=== PATIENT | male | born 1945 | race Caucasian/White ===

== ENCOUNTER 2016-07-06 08:31 | Outpatient (CLI) | payer MEDICARE, OTHER | END 2016-07-06 08:32 | disposition home or self-care (01) | DX: R73.01 Impaired fasting glucose (principal); I10 Essential (primary) hypertension; E78.9 Disorder of lipoprotein metabolism, unspecified; Z12.5 Encounter for screening for malignant neoplasm of prostate | CPT/HCPCS: 36415; 80053; 80061; 84443; G0103 ==

== ENCOUNTER 2017-02-04 15:27 | Outpatient (CLI) | payer MEDICARE, OTHER | END 2017-02-04 15:28 | disposition critical access hospital (66) | LOC: EMS 15:27 | PROVIDERS: ATTEND Surgery | DX: R07.9 Chest pain, unspecified (principal); R42 Dizziness and giddiness | CPT/HCPCS: A0425; A0427 ==

== ENCOUNTER 2017-02-04 15:46 | Inpatient (IN) | payer MEDICARE, OTHER ==
[2017-02-04] MEDS ORDERED: diltiaZEM INJ 125 MG in DEXTROSE 5% 100 ML IV STA (15:55)
--- NOTE | 2017-02-04 15:56 | ED Physician Documentation ---
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 Chest pain decreased at that time. Review of Systems Ten Systems: 10 systems reviewed and negative Constitutional: denies: Fever, Chills Ears: denies: Ear pain Nose: denies: Rhinorrhea / runny nose, Congestion Throat: denies: Sore throat Cardiac: reports: Chest pain / pressure Respiratory: denies: Cough, Wheezing GI: denies: Nausea, Vomiting, Diarrhea Skin: denies: Rash Musculoskeletal: denies: Neck pain, Back pain Neurologic: denies: Focal weakness, Numbness, Headache PD PAST MEDICAL HISTORY - Past Medical History Cardiovascular: Hypertension, High cholesterol, Arrhythmia, Other Respiratory: None Psych: Anxiety - Past Surgical History Past Surgical History: Yes - Present Medications Home Medications: Ambulatory Orders Medication Instructions Recorded Confirmed Alprazolam [Xanax] 1 mg PO DAILY 11/30/14 02/04/17 Atorvastatin Calcium [Lipitor] 20 mg PO DAILY 11/30/14 02/04/17 Hydrochlorothiazide 25 mg PO DAILY 11/30/14 02/04/17 Lisinopril 20 mg PO DAILY 11/30/14 02/04/17 Aspirin [Aspir-Low] 81 mg PO DAILY 10/31/15 02/04/17 - Allergies Allergies/Adverse Reactions: Allergies Allergy/AdvReac Type Severity Reaction Status Date / Time Penicillins Allergy passed out Verified 10/31/15 19:14 - Social History Does the pt smoke?: No Smoking Status: Never smoker Does the pt drink ETOH?: No Does the pt have substance abuse?: No - Immunizations Immunizations are current?: Yes - POLST Patient has POLST: No PD ED PE NORMAL - Vitals Vital signs reviewed: Yes - General General: Alert and oriented X 3, No acute distress, Well developed/nourished - HEENT HEENT: PERRL, Moist mucous membranes - Neck Neck: Supple, no meningeal sign - Cardiac Cardiac: No murmur, Other (irregulary irregular, tachycardic) - Respiratory Respiratory: No respiratory distress, Clear bilaterally - Abdomen Abdomen: Soft, Non tender, Non distended - Back Back: No CVA TTP, No spinal TTP - Derm Derm: Warm and dry, No rash - Extremities Extremities: No edema, No calf tenderness / cord - Neuro Neuro: Alert and oriented X 3, 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52 L Hgb 14.0 Hct 40.8 L MCV 90.3 MCH 31.0 MCHC 34.4 RDW 13.7 Plt Count 265 MPV 8.6 Neut # 4.2 Lymph # 2.2 [place] # 1.0 Eos # 0.2 Baso # 0.1 Absolute Nucleated RBC 0.00 Nucleated RBCs 0.1 Sodium 136 Potassium 3.9 Chloride 104 Carbon Dioxide 23 Anion Gap 9.0 BUN 24 H Creatinine 1.1 Estimated GFR (MDRD) 66 L Glucose 119 H Calcium 8.9 Total Bilirubin 0.5 AST 31 ALT 33 Alkaline Phosphatase 77 Troponin I < 0.04 Total Protein 7.0 Albumin 3.8 Globulin 3.2 Albumin/Globulin Ratio 1.2 Lipase 26 - Rads (name of study) cxr Radiology: Prelim report reviewed, EMP read contemporaneously, See rad report ( normal cxr) PD MEDICAL DECISION MAKING - ED course Complexity details: reviewed old records, reviewed results, re-evaluated patient , considered differential, d/w patient, d/w family, d/w nutrition consultant ED course: Patient is a 71-year-old gentleman who presents to the emergency department with new onset atrial fibrillation with rapid ventricular response. Initial rate was in the 180 bpm range, decreased to 130s after 25 mg of metoprolol IV with EMS. Started on a diltiazem drip when he arrived in the emergency department. Chest pain resolved with control of the atrial fibrillation. Discussed the case with Dr. Rivas, hospitalist who accepts. Patient was maintained on a diltiazem drip. This document was made in part using voice recognition software. While efforts are made to proofread this document, sound alike and grammatical errors may occur. Departure - Departure Disposition: 66 [facility] DC/Xfer Clinical Impression: Atrial fibrillation with RVR, New onset a-fib Chest pain Qualifiers: Chest pain type: unspecified Qualified Code(s): R07.9 - Chest pain, unspecified Condition: Stable Discharge Date/Time: 02/04/17 17:26
[2017-02-04 16:16] LABS: BASOPHILS # (AUTO) 0.1 10^3/uL (0.0-0.1); BASOPHILS % (AUTO) 1.1 %; EOSINOPHILS # (AUTO) 0.2 10^3/uL (0.0-0.7); HCT - HEMATOCRIT 40.8 % (42.0-52.0); LYMPHOCYTES # (AUTO) 2.2 10^3/uL (1.5-3.5); LYMPHOCYTES % (AUTO) 28.4 %; MEAN CORPUSCULAR HGB CONC 34.4 g/dL (32.0-36.0); MEAN CORPUSCULAR VOLUME 90.3 fL (80.0-94.0); MEAN PLATELET VOLUME 8.6 fL (7.4-11.4); MONOCYTES % (AUTO) 13.3 %; NEUTROPHILS # (AUTO) 4.2 10^3/uL (1.5-6.6); NEUTROPHILS % (AUTO) 55.2 %; NUCLEATED RED BLOOD CELLS AUTO 0.1 /100WBC; RED BLOOD COUNT 4.52 10^6/uL (4.70-6.10); RED CELL DISTRIBUTION WIDTH 13.7 % (12.0-15.0); UNCORRECTED WHITE BLOOD COUNT 7.7 x10^3/uL; WHITE BLOOD COUNT 7.7 x10^3/uL (4.8-10.8)
--- NOTE | 2017-02-04 16:19 | XRAY Preliminary Report ---
Exam: XR Chest 1 View IMPRESSION: Normal single view chest. [facility] SITE ID: [id number]
--- NOTE | 2017-02-04 16:22 | XRAY Report ---
EXAM: CHEST RADIOGRAPHY EXAM DATE: 02/04/2017 04:14 PM. CLINICAL HISTORY: Chest pain. COMPARISON: 2 views 11/30/2014. TECHNIQUE: 1 view. FINDINGS: Lungs/Pleura: No focal opacities evident. No pleural effusion. No pneumothorax. Mediastinum: Within exam limitations, cardiomediastinal contour is normal. Other: None. IMPRESSION: Normal single view chest. [facility] Referring Provider Line: [phone] SITE ID: [id number]
[2017-02-04 16:23] LABS: ALBUMIN/GLOBULIN RATIO 1.2 (1.0-2.2); BILIRUBIN,TOTAL 0.5 mg/dL (0.2-1.0); CALCIUM 8.9 mg/dL (8.5-10.3); CREATININE 1.1 mg/dL (0.6-1.2); POTASSIUM 3.9 mmol/L (3.5-5.0)
[2017-02-04] MEDS ORDERED: MORPHINE 2 MG/ML SYRINGE IVP PRN ×2 (16:46→17:29)
[2017-02-04] MEDS ORDERED: ONDANSETRON 4 MG/2 ML VIAL IVP PRN ×2 (16:46→17:29)
[2017-02-04] MEDS ORDERED: ACETAMINOPHEN 325 MG TABLET PO PRN ×2 (16:46→17:29)
[2017-02-04] MEDS ORDERED: ALBUTEROL NEB 2.5 MG/3 ML INH PRN ×2 (16:46→17:29)
[2017-02-04] MEDS ORDERED: SODIUM CHLORIDE FLUSH 0.9% 10 ML SYRINGE IVP PRN ×3 (16:46→18:38)
[2017-02-04] MEDS ORDERED: SODIUM CHLORIDE 0.9% 1,000 ML IV SCH (17:00)
[2017-02-04] MEDS: SODIUM CHLORIDE 0.9% 1,000 ML IV SCH (17:52)
[2017-02-04] MEDS: PANTOPRAZOLE 40 MG TABLET PO SCH (19:35)
[2017-02-04 20:47] LABS: BILIRUBIN,URINE NEGATIVE (NEGATIVE)
[2017-02-04 20:51] LABS: UA CHARGE (STRIP ONLY) YES
[2017-02-04] MEDS: ENOXAPARIN 40 MG/0.4 ML SYRINGE SUBQ SCH (21:00)
[2017-02-04] MEDS: SODIUM CHLORIDE FLUSH 0.9% 10 ML SYRINGE IVP SCH ×2 (21:00→21:01)
[2017-02-04] MEDS ORDERED: SODIUM CHLORIDE FLUSH 0.9% 10 ML SYRINGE IVP SCH (22:00)
[2017-02-05 01:22] LABS: CALCIUM 8.6 mg/dL (8.5-10.3); POTASSIUM 3.8 mmol/L (3.5-5.0)
[2017-02-05 01:27] LABS: CHOL/HDL RATIO 3.9 (<5.0); CHOLESTEROL 173 mg/dL; HDL CHOLESTEROL 44 mg/dL; LDL/HDL RATIO 2.6 (<3.6); TRIGLYCERIDES 75 mg/dL; VLDL CHOLESTEROL 15 mg/dL
[2017-02-05] MEDS: SODIUM CHLORIDE 0.9% 1,000 ML IV SCH (03:27)
[2017-02-05] MEDS: SODIUM CHLORIDE FLUSH 0.9% 10 ML SYRINGE IVP SCH ×4 (06:05→12:16)
[2017-02-05] MEDS: PANTOPRAZOLE 40 MG TABLET PO SCH (06:05)
[2017-02-05] MEDS: ENOXAPARIN 40 MG/0.4 ML SYRINGE SUBQ SCH (08:28)
[2017-02-05] MEDS ORDERED: LISINOPRIL 20 MG TABLET PO SCH ×2 (09:00)
[2017-02-05] MEDS ORDERED: ALPRAZolam 0.25 MG TABLET PO SCH (09:00)
[2017-02-05] MEDS ORDERED: ASPIRIN EC 81 MG TABLET PO SCH (09:00)
[2017-02-05] MEDS ORDERED: ATORVASTATIN 10 MG TABLET PO SCH (09:00)
[2017-02-05] MEDS ORDERED: POLYETHYLENE GLYCOL 3350 17 GM PACKET PO SCH (09:00)
[2017-02-05] MEDS ORDERED: METOPROLOL TARTRATE 25 MG TABLET PO SCH (09:00)
--- NOTE | 2017-02-05 10:25 | HISTORY & PHYSICAL EXAMINATION ---
DATE OF ADMISSION: 02/04/2017 PRIMARY CARE PHYSICIAN: Dr. Mendoza CHIEF COMPLAINT: Chest pressure. IDENTIFYING INFORMATION: The patient is the primary source of history and appears cogent, consistent, and thorough. Additional information is obtained in the handoff from Dr. Meehan, the emergency depar tment physician, as well as personal review of medical records and data collected during this visit. All were used in addition to the examination in the evaluation of this patient and preparation of thi s document. HISTORY OF PRESENT ILLNESS: The patient says he was playing golf and got on the 4th hole and he start ed feeling very what he called acid in his stomach, felt like his heart was not beating properly and he decided not to continue to golf, put his golf clubs away, drive home, took 3 aspirin. He did not f eel any better, so he came to the hospital via EMS. Was noted by EMS to have very fast heart rate, 15 0, and in atrial fibrillation. He was given 25 mg of diltiazem which slowed his heart rate into the 1 20s. REVIEW OF SYSTEMS: He has no fever or chills. He did feel dizzy, weak, faint during this period. He h as never had these symptoms before. He was seen a long time ago for some kind of palpitations or irre gular rhythm and had an angiogram at that time no abnormalities and he has also been seen more recent ly for an irregularity on his EKG. The patient's rest of his complete review of systems is negative a s queried. PAST MEDICAL HISTORY: The patient has hypertension, high cholesterol, arrhythmia noted above, also burciaga s anxiety syndrome. PAST SURGICAL HISTORY: The patient has had surgery, which was not delineated. ALLERGIES: PENICILLIN. MEDICATIONS 1. Xanax 1 mg daily. 2. Lipitor 20 mg daily. 3. Hydrochlorothiazide 25 mg daily. 4. Lisinopril 20 mg daily. 5. Aspirin 81 mg daily. 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 The patient tried smoking when he was in the [place], but it d id not agree with him so never smoked. Only occasional use of alcohol. FAMILY HISTORY: The patient's family history is reviewed and no relevant family history. PHYSICAL EXAMINATION CONSTITUTIONAL: Male, appears anxious and states same, but not in distress, says his chest pain is al most gone. VITAL SIGNS: 37.0, 124, 16, 148/93, O2 saturation 94%. EYES: EOM within normal limits, PERRL, nonicteric. MOUTH AND THROAT: Normal. NECK: Supple. Nontender. No bruits, no JVD. CHEST WALL: Nontender. Symmetric. HEART: Regular rate and rhythm. No murmurs appreciated, tachycardia noted. LUNGS: Clear, good air movement bilaterally. ABDOMEN: Thick abdominal wall, soft, nontender, normal bowel sounds. No hepatosplenomegaly noted. RECTAL/GENITAL: Exam not done. EXTREMITIES: No edema. VASCULAR: Reveals palpable 1+ pulses posterior tibial bilaterally. The patient has no cyanosis. NEURO : Cognition intact. Cranial nerves intact. Motor intact. Gait was not tested. LABORATORY DATA: White count 7.7, 14 and 40 hemoglobin and hematocrit, platelets are 265. Sodium 136, potassium 3.9, chloride 104, CO2 of 23, 24 is the BUN, creatinine at 1.1, glucose is 119, calcium 8. 9. Normal liver enzymes. Troponin less than 0.04. Albumin is 3.8. In the emergency department, the demian hamilton's Cardizem drip was increased from 10 to 15 to 20 with improvement each time and then regressio n of his heart rate with RVR. SUMMARY: This is a 71-year-old male who was out playing golf, had chest pressure and fast heart rate, the new onset atrial fibrillation with RVR and is being admitted to the hospital to continue IV infu ana and Additional medications as needed for controlling the RVR with further diagnostic studies. DIAGNOSES 1. Atrial fibrillation with rapid ventricular response, new onset. 2. Chest pain, rule out myocardial infarction. 3. Hypertension. 4. Hypercholesterolemia. DISCUSSION/DECISION MAKING 1. Atrial fibrillation with rapid ventricular response treated with diltiazem and beta jeremy added. 2. Chest pain. Will continue aspirin. Metoprolol to be added and serial troponins. 3. Hypertension will be monitored with home medications as needed. 4. High cholesterol. The patient's will have a panel done and statin adjusted as needed. 5. Anxiety. The patient's Xanax will be used or substituted with Ativan. HOSPITAL ISSUES 1. Code status: FULL CODE. 2. VTE prophylaxis, which will be Lovenox. 3. Diet, which will be cardiac. 4. Activity will be in chair for now. 5. Tubes and lines, which will be peripheral IV. 6. Hospital status: Given the rapid atrial fibrillation with rapid ventricular response, the patient' s new onset and need for workup, patient will need 2 nights in the hospital for diagnostics and thera peutic interventions before discharge and therefore inpatient status. 7. Length of stay, 2 nights unless there is deterioration of his condition or complications. 8. Disposition which will be home. JOB #: [id number] EXT JOB #:[id number]
[2017-02-05 14:06] VITALS: BP 135/73
--- NOTE | 2017-02-05 14:38 | DISCHARGE SUMMARY ---
DATE OF ADMISSION: 02/04/2017 DATE OF DISCHARGE: 02/05/2017 TRANSFER SUMMARY PRIMARY CARE PHYSICIAN: Gregorio Mendoza MD INITIAL DIAGNOSES 1. Atrial fibrillation with rapid ventricular response, new onset. 2. Chest pain, rule out myocardial infarction. 3. Hypertension. 4. Hypercholesterolemia. TRANSFER DIAGNOSES 1. Atrial fibrillation with rapid ventricular response, converted to normal sinus rhythm during hospital stay. 2. Chest pain with suspect [id number] myocardial infarction versus cardiac strain secondary to atrial fibrillation with rapid ventricular response. 3. Hypertension. 4. Hypercholesterolemia. SPECIAL PROCEDURES: None. CONSULTATIONS: By telephone, Dr. Duenas. The result of the consultation was a recommendation that the patient be transferred to [facility]. HOSPITAL COURSE AND MANAGEMENT: The initial presentation, emergency department evaluation and hospitalist plan are well described in the History and Physical. See copy of same. SUMMARY: This is a 71-year-old male who was out playing golf, had chest pressure and a fast heart rate. The new onset atrial fibrillation with RVR present dictated, because of the need for IV infusion of Cardizem, for the patient to be admitted to the hospital to continue this infusion and additional medications as needed for controlling the RVR with further diagnostic studies, i.e., echocardiogram and serial troponins. The patient was continued on the infusion, which was increased to a maximum of 20, and then, the patient was subsequently controlled with this infusion. It was reduced down to 10 mcg and converted to normal sinus, then to 5 mcg and then discontinued. The patient was started on beta-jeremy because of the increase in his troponin from less than 0.04 to 0.27 to 1.0 to 1.34 and before discharge 1.04, indicating a peak at 1.3. The patient had no further chest pain and was queried as to his preference for Cardiology and point of service. The patient indicated [facility], and therefore, Dr. Duenas was consulted. When it was understood that a timely echocardiogram and stress test were not available due to the 3 day holiday, the recommendation was for the patient to be transferred after talking to the hospitalist, Dr. Pollard. Agreement was reached with gracious acceptance. PHYSICAL EXAMINATION VITAL SIGNS: At the time of discharge, 36.7, 62, 130/66, 21, 97 room air saturation. GENERAL: The patient is a well-nourished, well-developed male in no acute distress. EYES: EOMs within normal limits, PERRL, nonicteric. MOUTH AND THROAT: Moist mucous membranes. No pathology noted. NECK: No lymphadenopathy. No JVD. No thyromegaly. CHEST WALL: Nontender. Symmetric. HEART: Normal sinus rhythm. No murmurs, rubs, clicks noted. LUNGS: Clear, good air movement. No increased work of breathing. ABDOMEN: Thick abdominal wall, soft, nontender. RECTAL/GENITAL: No exam done. EXTREMITIES: Without edema. Normal distal pulses to posterior tibial. NEUROLOGIC: Cognitive intact. Cranial nerves intact. SKIN: No suspicious lesions or dermatitis. LABORATORY DATA: Troponins have been previously <0.04, 0.27, o.47. The patient has a white count that was normal. Sodium 136, potassium 3.8, chloride 103, CO2 of 24, BUN 21, creatinine 1.0. The patient's calcium is 8.6. The patient was transitioned to full dose Lovenox. Aspirin was given. Beta blockers noted above. MEDICATIONS At time of discharge, the patient's medications were: 1. Aspirin. 2. Lipitor. 3. Lovenox. 4. Zestril. 5. Metoprolol. 6. P.r.n. morphine. 7. Ondansetron. 8. Protonix. The patient was discharged in satisfactory condition. JOB #: [id number] EXT JOB #:[id number]
== END 2017-02-05 14:25 | disposition short-term general hospital (02) | DRG 282 ==
LOC: EDUNIT# → ED 15:46 → ICU 16:46 → ED 17:26
PROVIDERS: ADMIT Internal Medicine; ATTEND Internal Medicine
DX: I21.4 Non-ST elevation (NSTEMI) myocardial infarction (principal); I48.91 Unspecified atrial fibrillation; I10 Essential (primary) hypertension; E78.00 Pure hypercholesterolemia, unspecified; Z79.82 Long term (current) use of aspirin; Z79.899 Other long term (current) drug therapy; F41.9 Anxiety disorder, unspecified
CPT/HCPCS: 36415; 71010; 80048; 80053; 80061; 81001; 81003; 83690; 84484; 85025; 87150; 93005; 96365; 99284; 99285

== ENCOUNTER 2017-02-05 14:31 | Outpatient (CLI) | payer MEDICARE, OTHER | END 2017-02-05 14:32 | disposition short-term general hospital (02) | LOC: EMS 14:31 | PROVIDERS: ATTEND Surgery | DX: R07.9 Chest pain, unspecified (principal) | CPT/HCPCS: A0425; A0426 ==

== ENCOUNTER 2017-03-01 16:56 | Outpatient (CLI) | payer MEDICARE, OTHER | END 2017-03-01 16:57 | disposition critical access hospital (66) | LOC: EMS 16:56 | PROVIDERS: ATTEND Surgery | DX: R00.0 Tachycardia, unspecified (principal); R07.9 Chest pain, unspecified | CPT/HCPCS: A0425; A0427 ==

== ENCOUNTER 2017-03-01 17:15 | Emergency (ER) | payer MEDICARE, OTHER ==
[2017-03-01 17:37] LABS: BASOPHILS # (AUTO) 0.1 10^3/uL (0.0-0.1); BASOPHILS % (AUTO) 1.4 %; EOSINOPHILS # (AUTO) 0.3 10^3/uL (0.0-0.7); EOSINOPHILS % (AUTO) 3.4 %; HCT - HEMATOCRIT 41.8 % (42.0-52.0); HGB - HEMOGLOBIN 14.5 g/dL (14.0-18.0); LYMPHOCYTES # (AUTO) 3.3 10^3/uL (1.5-3.5); LYMPHOCYTES % (AUTO) 39.6 %; MEAN CORPUSCULAR HEMOGLOBIN 31.2 pg (27.0-31.0); MEAN CORPUSCULAR HGB CONC 34.6 g/dL (32.0-36.0); MEAN CORPUSCULAR VOLUME 90.1 fL (80.0-94.0); MEAN PLATELET VOLUME 9.1 fL (7.4-11.4); MONOCYTES # (AUTO) 0.9 10^3/uL (0.0-1.0); MONOCYTES % (AUTO) 10.4 %; NEUTROPHILS # (AUTO) 3.8 10^3/uL (1.5-6.6); NEUTROPHILS % (AUTO) 45.2 %; NUCLEATED RED BLOOD CELLS AUTO 0.1 /100WBC; RED BLOOD COUNT 4.64 10^6/uL (4.70-6.10); RED CELL DISTRIBUTION WIDTH 13.7 % (12.0-15.0); UNCORRECTED WHITE BLOOD COUNT 8.4 x10^3/uL; WHITE BLOOD COUNT 8.4 x10^3/uL (4.8-10.8)
--- NOTE | 2017-03-01 17:44 | ED Physician Documentation ---
PD HPI CHEST PAIN - Stated complaint Stated Complaint: AFIB - Chief complaint Chief Complaint: Cardiac - History obtained from History obtained from: Patient, EMS - History of Present Illness Timing - onset: Other (This is a 71-year-old gentleman who developed A. fib 3 weeks ago, he ruled in here and was sent to [facility] where per his description he had a negative echocardiogram and nuclear stress test. He was placed on Eliquis and metoprolol. Today at around 4:00 developed burping and feeling dizzy with chest pressure. He went to his doctor's office and they found him to be back in A. fib with RVR and he was referred here for further evaluation and treatment. On arrival he feels better and has converted to sinus rhythm.) Review of Systems Ten Systems: 10 systems reviewed and negative Constitutional: denies: Fever, Chills Cardiac: denies: Pedal edema, Calf pain Respiratory: denies: Dyspnea, Hemoptysis PD PAST MEDICAL HISTORY - Past Medical History Past Medical History: Yes Cardiovascular: Hypertension, High cholesterol, Arrhythmia, Other Respiratory: None Neuro: None GI: None : None HEENT: None Psych: Anxiety Musculoskeletal: None Derm: None - Past Surgical History Past Surgical History: Yes HEENT: Other - Present Medications Home Medications: Ambulatory Orders Medication Instructions Recorded Confirmed Alprazolam [Xanax] 1 mg PO DAILY 11/30/14 02/04/17 Atorvastatin Calcium [Lipitor] 40 mg PO DAILY 11/30/14 02/05/17 Hydrochlorothiazide 50 mg PO DAILY 11/30/14 02/05/17 Lisinopril 20 mg PO DAILY 11/30/14 02/04/17 Aspirin [Aspir-Low] 81 mg PO DAILY 10/31/15 02/04/17 - Allergies Allergies/Adverse Reactions: Allergies Allergy/AdvReac Type Severity Reaction Status Date / Time Penicillins Allergy passed out Verified 10/31/15 19:14 - Social History Does the pt smoke?: No Smoking Status: Never smoker Does the pt drink ETOH?: No Does the pt have substance abuse?: No - Immunizations Immunizations are current?: Yes - POLST Patient has POLST: No PD ED PE NORMAL - Vitals Vital signs reviewed: Yes - General General: Alert and oriented X 3, No acute distress - HEENT HEENT: PERRL, EOMI - Neck Neck: Supple, no meningeal sign, No bony TTP - Cardiac Cardiac: RRR, No murmur - Respiratory Respiratory: No respiratory distress, Clear bilaterally - Abdomen Abdomen: Soft, Non tender - Back Back: No CVA TTP, No spinal TTP - Derm Derm: Normal color, Warm and dry - Extremities Extremities: No edema, No calf tenderness / cord - Neuro Neuro: Alert and oriented X 3, Normal speech - Psych Psych: Normal mood, Normal affect Results - Vitals Vitals: Vital Signs - 24 hr 03/01/17 03/01/17 03/01/17 17:18 17:20 18:35 Heart Rate 135 H 56 L Respiratory 18 13 Rate Blood Pressure 158/114 H 94/65 O2 Saturation 100 95 Oxygen O2 Source Room air - EKG (time done) 1743 Rate: Rate (enter#) (71) Rhythm: NSR [place]: Normal Intervals: Normal [place] QRS: Normal Ischemia: Non specific changes (Inverted T waves in the mid and lateral precordium which are unchanged from prior EKGs done 3 weeks ago.). No: ST elevation c/w ischemia Computer interpretation: Agree with computer - Labs Labs: Laboratory Tests 03/01/17 03/01/17 03/01/17 17:29 17:29 17:29 WBC 8.4 RBC 4.64 L Hgb 14.5 Hct 41.8 L MCV 90.1 MCH 31.2 H MCHC 34.6 RDW 13.7 Plt Count 251 MPV 9.1 Neut # 3.8 Lymph # 3.3 [place] # 0.9 Eos # 0.3 Baso # 0.1 Absolute Nucleated RBC 0.01 Nucleated RBC % 0.1 Sodium 138 Potassium 3.6 Chloride 104 Carbon Dioxide 23 Anion Gap 11.0 BUN 26 H Creatinine 1.0 Estimated GFR (MDRD) 74 L Glucose 117 H Calcium 9.5 Total Bilirubin 0.6 AST 35 ALT 39 Alkaline Phosphatase 69 Troponin I < 0.04 Total Protein 7.0 Albumin 3.8 Globulin 3.2 Albumin/Globulin Ratio 1.2 Lipase 26 03/01/17 19:28 WBC RBC Hgb Hct MCV MCH MCHC RDW Plt Count MPV Neut # Lymph # [place] # Eos # Baso # Absolute Nucleated RBC Nucleated RBC % Sodium Potassium Chloride Carbon Dioxide Anion Gap BUN Creatinine Estimated GFR (MDRD) Glucose Calcium Total Bilirubin AST ALT Alkaline Phosphatase Troponin I 0.04 Total Protein Albumin Globulin Albumin/Globulin Ratio Lipase PD MEDICAL DECISION MAKING - ED course ED course: 71-year-old gentleman with an episode of A. fib that resolved prior to arrival. On his last admission he ruled in and was transferred to [facility] where per his description further workup was negative. Because of that he was kept in the department for 2 enzymes which were both undetectable and he continued to be symptom-free. 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 Departure - Departure Disposition: Home, Self Care Clinical Impression: Atrial fibrillation with RVR Condition: Good Record reviewed to determine appropriate education?: Yes Instructions: Atrial Fibrillation Dc Comments: Call your director of hotel operations tomorrow to arrange sooner follow-up than May. Return if you have recurrent symptoms.
[2017-03-01 17:46] LABS: ALBUMIN/GLOBULIN RATIO 1.2 (1.0-2.2); BILIRUBIN,TOTAL 0.6 mg/dL (0.2-1.0); CALCIUM 9.5 mg/dL (8.5-10.3); POTASSIUM 3.6 mmol/L (3.5-5.0)
--- NOTE | 2017-03-01 18:23 | XRAY Preliminary Report ---
Exam: XR Chest 2 View PA/LAT IMPRESSION: No acute pulmonary process. [facility] SITE ID: [id number]
--- NOTE | 2017-03-01 18:58 | XRAY Report ---
EXAM: CHEST RADIOGRAPHY EXAM DATE: 03/01/2017 05:55 p.m. CLINICAL HISTORY: Chest pain. COMPARISON: 02/04/2017. TECHNIQUE: 2 views. FINDINGS: Lungs/Pleura: No focal opacities evident. No pleural effusion. No pneumothorax. Normal volumes. Mediastinum: Heart and mediastinal contours are unremarkable. 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 IMPRESSION: No acute pulmonary process. [facility] Referring Provider Line: [phone] SITE ID: [id number]
[2017-03-01 20:13] VITALS: BP 107/68
== END 2017-03-01 20:28 | disposition home or self-care (01) ==
LOC: EDUNIT# → ED 17:15
DX: I48.91 Unspecified atrial fibrillation (principal); Z79.01 Long term (current) use of anticoagulants; I10 Essential (primary) hypertension; E78.00 Pure hypercholesterolemia, unspecified; I49.9 Cardiac arrhythmia, unspecified; Z79.82 Long term (current) use of aspirin
CPT/HCPCS: 36415; 71020; 80053; 83690; 84484; 85025; 93005; 99284

== ENCOUNTER 2017-03-07 14:17 | Outpatient (CLI) | payer MEDICARE, OTHER | END 2017-03-07 14:18 | disposition home or self-care (01) | LOC: SC 14:17 | PROVIDERS: ATTEND Internal Medicine Pulmonary Disease | DX: R06.83 Snoring (principal); I48.0 Paroxysmal atrial fibrillation | CPT/HCPCS: 99203; G0463; 99212 ==

== ENCOUNTER 2017-05-02 20:18 | Outpatient (CLI) | payer MEDICARE, OTHER | END 2017-05-02 20:19 | disposition home or self-care (01) | LOC: SC 20:18 | PROVIDERS: ATTEND Internal Medicine Pulmonary Disease | DX: G47.61 Periodic limb movement disorder (principal) | CPT/HCPCS: 95810 ==

== ENCOUNTER 2017-05-12 08:00 | Outpatient (CLI) | payer MEDICARE, OTHER ==
[2017-05-12 13:05] LABS: BASOPHILS # (AUTO) 0.1 10^3/uL (0.0-0.1); BASOPHILS % (AUTO) 0.9 %; EOSINOPHILS # (AUTO) 0.3 10^3/uL (0.0-0.7); EOSINOPHILS % (AUTO) 3.2 %; HCT - HEMATOCRIT 40.8 % (42.0-52.0); LYMPHOCYTES # (AUTO) 3.2 10^3/uL (1.5-3.5); MEAN CORPUSCULAR HEMOGLOBIN 31.1 pg (27.0-31.0); MEAN CORPUSCULAR HGB CONC 34.3 g/dL (32.0-36.0); MEAN CORPUSCULAR VOLUME 90.7 fL (80.0-94.0); MEAN PLATELET VOLUME 9.9 fL (7.4-11.4); MONOCYTES # (AUTO) 0.9 10^3/uL (0.0-1.0); MONOCYTES % (AUTO) 10.9 %; NEUTROPHILS # (AUTO) 4.1 10^3/uL (1.5-6.6); NUCLEATED RED BLOOD CELLS AUTO 0.1 /100WBC; RED CELL DISTRIBUTION WIDTH 13.8 % (12.0-15.0); UNCORRECTED WHITE BLOOD COUNT 8.6 x10^3/uL; WHITE BLOOD COUNT 8.6 x10^3/uL (4.8-10.8)
[2017-05-12 13:28] LABS: ALBUMIN/GLOBULIN RATIO 1.2 (1.0-2.2); BILIRUBIN,TOTAL 0.5 mg/dL (0.2-1.0); CALCIUM 9.2 mg/dL (8.5-10.3); CREATININE 1.1 mg/dL (0.6-1.2); POTASSIUM 3.8 mmol/L (3.5-5.0); TOTAL PROTEIN 7.2 g/dL (6.7-8.2)
== END 2017-05-12 08:01 | disposition home or self-care (01) ==
LOC: LAB.WCP 08:00
PROVIDERS: ATTEND Family Medicine
DX: I48.91 Unspecified atrial fibrillation (principal); E78.9 Disorder of lipoprotein metabolism, unspecified; I10 Essential (primary) hypertension
CPT/HCPCS: 36415; 80053; 85025

== ENCOUNTER 2017-05-18 11:10 | Outpatient (CLI) | payer MEDICARE, OTHER | END 2017-05-18 11:11 | disposition home or self-care (01) | LOC: SC 11:10 | PROVIDERS: ATTEND Nurse Practitioner Family | DX: G47.61 Periodic limb movement disorder (principal); R06.83 Snoring | CPT/HCPCS: 99214; G0463; 99212 ==

== ENCOUNTER 2017-11-08 08:00 | Outpatient (CLI) | payer MEDICARE, OTHER ==
[2017-11-08 12:40] LABS: BASOPHILS # (AUTO) 0.1 10^3/uL (0.0-0.1); BASOPHILS % (AUTO) 0.9 %; EOSINOPHILS # (AUTO) 0.1 10^3/uL (0.0-0.7); EOSINOPHILS % (AUTO) 1.7 %; HGB - HEMOGLOBIN 14.4 g/dL (14.0-18.0); LYMPHOCYTES # (AUTO) 2.7 10^3/uL (1.5-3.5); LYMPHOCYTES % (AUTO) 33.9 %; MEAN CORPUSCULAR HGB CONC 34.4 g/dL (32.0-36.0); MEAN CORPUSCULAR VOLUME 90.2 fL (80.0-94.0); MEAN PLATELET VOLUME 9.6 fL (7.4-11.4); MONOCYTES # (AUTO) 0.9 10^3/uL (0.0-1.0); MONOCYTES % (AUTO) 10.9 %; NEUTROPHILS # (AUTO) 4.2 10^3/uL (1.5-6.6); NEUTROPHILS % (AUTO) 52.6 %; PLT - PLATELET COUNT 267 10^3/uL (130-450); RED BLOOD COUNT 4.66 10^6/uL (4.70-6.10); RED CELL DISTRIBUTION WIDTH 13.8 % (12.0-15.0)
[2017-11-08 13:00] LABS: ALBUMIN 3.9 g/dL (3.2-5.5); ALBUMIN/GLOBULIN RATIO 1.1 (1.0-2.2); ALKALINE PHOSPHATASE 70 IU/L (42-121); ALT ALANINE AMINOTRANSFERASE 38 IU/L (10-60); AST ASPARTATE AMINOTRANSFERASE 35 IU/L (10-42); BILIRUBIN,TOTAL 0.9 mg/dL (0.2-1.0); BUN - BLOOD UREA NITROGEN 31 mg/dL (6-20); CALCIUM 9.1 mg/dL (8.5-10.3); CARBON DIOXIDE - CO2 24 mmol/L (21-32); CHLORIDE 100 mmol/L (101-111); CHOL/HDL RATIO 4.3 (<5.0); CHOLESTEROL 191 mg/dL; CREATININE 1.2 mg/dL (0.6-1.2); GFR - MDRD 60 (>89); GLUCOSE 120 mg/dL (70-100); HDL CHOLESTEROL 44 mg/dL; LDL CHOLESTEROL,CALCULATED 125 mg/dL; LDL/HDL RATIO 2.8 (<3.6); SODIUM 134 mmol/L (135-145); TOTAL PROTEIN 7.4 g/dL (6.7-8.2); VLDL CHOLESTEROL 22 mg/dL
== END 2017-11-08 08:01 | disposition home or self-care (01) ==
LOC: LAB.WCP 08:00
PROVIDERS: ATTEND Family Medicine
DX: I48.91 Unspecified atrial fibrillation (principal); D12.6 Benign neoplasm of colon, unspecified; E78.9 Disorder of lipoprotein metabolism, unspecified; R00.2 Palpitations
CPT/HCPCS: 36415; 80053; 80061; 83721; 85025

== ENCOUNTER 2017-11-10 12:13 | Emergency (ER) | payer MEDICARE, OTHER ==
[2017-11-10] MEDS ORDERED: MAG HYDROX/AL HYDROX/SIMETH 30 ML UDC PO STA (12:54)
[2017-11-10] MEDS ORDERED: SODIUM CHLORIDE 0.9% 1,000 ML IV ONE (12:54)
--- NOTE | 2017-11-10 12:57 | ED Physician Documentation ---
History of Present Illness - Stated complaint Stated Complaint: AB PX - Chief complaint Chief Complaint: Abd Pain - History obtained from History obtained from: Patient, Family - History of Present Illness Timing: Last night Pain level max: 1 Pain level now: 0 Improved by: nothing Worsened by: nothing - Additonal information Additional information: Patient is a 72-year-old male who presents to the since department with epigastric pain last night and this morning. States felt more nauseous than anything and like a "gurgling". He also states that he felt a little bit lightheaded last night and today. Has not had a great appetite over the past 6 days since his dog unexpectedly . He states he is struggling with this and feels anxious. States currently is feeling better, though still tearful. States had a full cardiac workup in 02/2017 and everything was " normal " including nuclear stress test. Review of Systems Ten Systems: 10 systems reviewed and negative Constitutional: denies: Fever, Chills Ears: denies: Ear pain Nose: denies: Rhinorrhea / runny nose, Congestion Throat: denies: Sore throat Cardiac: denies: Chest pain / pressure Respiratory: denies: Cough GI: reports: Nausea. denies: Vomiting, Diarrhea, Hematemesis, Bloody / black stool : denies: Dysuria, Frequency, Hesitancy Skin: denies: Rash Musculoskeletal: denies: Neck pain, Back pain Neurologic: denies: Focal weakness, Numbness, Headache PD PAST MEDICAL HISTORY - Past Medical History Past Medical History: Yes Cardiovascular: Hypertension, High cholesterol, Atrial fibrillation, Arrhythmia , Other Respiratory: None GI: None : None HEENT: None Psych: Anxiety Musculoskeletal: None Derm: None - Past Surgical History Past Surgical History: Yes HEENT: Other - Present Medications Home Medications: Ambulatory Orders Medication Instructions Recorded Confirmed Alprazolam [Xanax] 1 mg PO DAILY 11/30/14 02/04/17 Atorvastatin Calcium [Lipitor] 40 mg PO DAILY 11/30/14 02/05/17 Hydrochlorothiazide 50 mg PO DAILY 11/30/14 02/05/17 Lisinopril 20 mg PO DAILY 11/30/14 02/04/17 Apixaban [Eliquis] 2.5 mg PO 11/10/17 Metoprolol Succinate [Toprol Xl] 25 mg PO 11/10/17 - Allergies Allergies/Adverse Reactions: Allergies Allergy/AdvReac Type Severity Reaction Status Date / Time Penicillins Allergy passed out Verified 11/10/17 12:27 - Social History Does the pt smoke?: No Smoking Status: Never smoker Does the pt drink ETOH?: No Does the pt have substance abuse?: No - Immunizations Immunizations are current?: Yes - POLST Patient has POLST: No PD ED PE NORMAL - Vitals Vital signs reviewed: Yes - General General: Alert and oriented X 3, No acute distress - HEENT HEENT: Moist mucous membranes - Neck Neck: Supple, no meningeal sign - Cardiac Cardiac: RRR, No murmur, Strong equal pulses - Respiratory Respiratory: No respiratory distress, Clear bilaterally - Abdomen Abdomen: Soft, Non tender, Non distended - Derm Derm: Warm and dry - Extremities Extremities: No edema, No calf tenderness / cord - Neuro Neuro: Alert and oriented X 3 - Psych Psych: Other (tearful at times) Results - Vitals Vitals: Vital Signs - 24 hr 11/10/17 11/10/17 11/10/17 12:22 14:16 14:38 Temperature 36.9 C Heart Rate 57 L 141 H 153 H Respiratory 16 18 Rate Blood Pressure 147/85 H 148/110 H 155/99 H O2 Saturation 96 94 11/10/17 11/10/17 11/10/17 14:43 14:48 14:53 Temperature Heart Rate 77 65 59 L Respiratory Rate Blood Pressure 124/67 134/70 H 128/71 O2 Saturation 11/10/17 11/10/17 11/10/17 15:27 15:53 15:58 Temperature 36.9 C 36.9 C Heart Rate 60 60 60 Respiratory 18 18 18 Rate Blood Pressure 130/77 112/68 112/68 O2 Saturation 97 100 100 Oxygen O2 Source Room air - EKG (time done) 1316 Rate: Rate (enter#) (136) Rhythm: Atrial fibrillation (w RVR) [place]: Normal Intervals: Normal [place] QRS: Normal Ischemia: Non specific changes - Labs Labs: Laboratory Tests 11/10/17 11/10/17 11/10/17 13:31 13:31 13:31 WBC 9.0 RBC 4.78 Hgb 15.1 Hct 43.8 MCV 91.6 MCH 31.6 H MCHC 34.5 RDW 13.8 Plt Count 277 MPV 8.9 Neut # (Auto) 6.5 Lymph # (Auto) 1.6 [place] # (Auto) 0.8 Eos # (Auto) 0.1 Baso # (Auto) 0.1 Absolute Nucleated RBC 0.00 Nucleated RBC % 0.0 Sodium 131 L Potassium 3.8 Chloride 99 L Carbon Dioxide 22 Anion Gap 10.0 BUN 26 H Creatinine 1.2 Estimated GFR (MDRD) 60 L Glucose 122 H Calcium 9.5 Total Bilirubin 0.7 AST 39 ALT 41 Alkaline Phosphatase 75 Troponin I < 0.04 Total Protein 7.9 Albumin 4.0 Globulin 3.9 Albumin/Globulin Ratio 1.0 Lipase 35 - Rads (name of study) cxr Radiology: Prelim report reviewed, EMP read contemporaneously, See rad report ( normal) PD MEDICAL DECISION MAKING - ED course Complexity details: reviewed results, re-evaluated patient, considered differential (No ST elevation NV, no aortic dissection, no PE, no tension pneumothorax, no aortic aneurysm), d/w patient, d/w family ED course: Patient is a 72-year-old male who presents to the emergency department with generalized not feeling well since last night. He was found to be in atrial fibrillation with rapid ventricular response and converted back to normal sinus rhythm with Cardizem here. He did feel better after this. Also found to be mildly hyponatremic and felt better after IV fluids. Has had decreased oral intake since his dog . Recommend that he increase his oral intake and follow-up closely with his doctor. Patient and family counseled regarding signs and symptoms for which I believe and urgent re-evaluation would be necessary. Patient with good understanding of and agreement to plan and is comfortable going home at this time This document was made in part using voice recognition software. While efforts are made to proofread this document, sound alike and grammatical errors may occur. - Sepsis Event Vital Signs: Vital Signs - 24 hr 11/10/17 11/10/17 11/10/17 12:22 14:16 14:38 Temperature 36.9 C Heart Rate 57 L 141 H 153 H Respiratory 16 18 Rate Blood Pressure 147/85 H 148/110 H 155/99 H O2 Saturation 96 94 11/10/17 11/10/17 11/10/17 14:43 14:48 14:53 Temperature Heart Rate 77 65 59 L Respiratory Rate Blood Pressure 124/67 134/70 H 128/71 O2 Saturation 06/08/18 06/08/18 06/08/18 15:27 15:53 15:58 Temperature 36.9 C 36.9 C Heart Rate 60 60 60 Respiratory 18 18 18 Rate Blood Pressure 130/77 112/68 112/68 O2 Saturation 97 100 100 Oxygen O2 Source Room air Departure - Departure Disposition: 01 Home, Self Care Clinical Impression: Atrial fibrillation with RVR, Hyponatremia Condition: Good Instructions: ED Afib Follow-Up: Gregorio Mendoza MD [Primary Care Provider] - Within 1 week Comments: Return if you worsen. Is important to follow-up with your doctor in approximately 1 week to have your sodium levels rechecked. Discharge Date/Time: 11/10/17 15:58
--- NOTE | 2017-11-10 13:24 | XRAY Report ---
EXAM: CHEST RADIOGRAPHY EXAM DATE: 11/10/2017 01:15 PM. CLINICAL HISTORY: Chest pain. COMPARISON: 03/01/2017. TECHNIQUE: 1 view. FINDINGS: Lungs/Pleura: No focal opacities evident. No pleural effusion. The left lateral costophrenic sulcus i s excluded from the [id number]. No pneumothorax. Mediastinum: Within exam limitations, the cardiomediastinal contour is normal. Other: No acute osseous abnormality. IMPRESSION: No acute cardiopulmonary abnormality. [facility] Referring Provider Line: [phone] SITE ID: [id number]
--- NOTE | 2017-11-10 13:24 | XRAY Preliminary Report ---
Exam: XR CHEST 1 VIEW X-RAY IMPRESSION: No acute cardiopulmonary abnormality. [facility] SITE ID: [id number]
[2017-11-10 13:35] LABS: BASOPHILS # (AUTO) 0.1 10^3/uL (0.0-0.1); BASOPHILS % (AUTO) 0.9 %; EOSINOPHILS # (AUTO) 0.1 10^3/uL (0.0-0.7); EOSINOPHILS % (AUTO) 0.7 %; HGB - HEMOGLOBIN 15.1 g/dL (14.0-18.0); LYMPHOCYTES # (AUTO) 1.6 10^3/uL (1.5-3.5); LYMPHOCYTES % (AUTO) 17.3 %; MEAN CORPUSCULAR HEMOGLOBIN 31.6 pg (27.0-31.0); MEAN CORPUSCULAR HGB CONC 34.5 g/dL (32.0-36.0); MEAN CORPUSCULAR VOLUME 91.6 fL (80.0-94.0); MEAN PLATELET VOLUME 8.9 fL (7.4-11.4); MONOCYTES # (AUTO) 0.8 10^3/uL (0.0-1.0); MONOCYTES % (AUTO) 8.9 %; NEUTROPHILS # (AUTO) 6.5 10^3/uL (1.5-6.6); NEUTROPHILS % (AUTO) 72.2 %; PLT - PLATELET COUNT 277 10^3/uL (130-450); RED BLOOD COUNT 4.78 10^6/uL (4.70-6.10); RED CELL DISTRIBUTION WIDTH 13.8 % (12.0-15.0)
[2017-11-10 14:00] LABS: BILIRUBIN,TOTAL 0.7 mg/dL (0.2-1.0); CALCIUM 9.5 mg/dL (8.5-10.3); CREATININE 1.2 mg/dL (0.6-1.2); TOTAL PROTEIN 7.9 g/dL (6.7-8.2)
[2017-11-10] MEDS ORDERED: diltiaZEM INJ 5 MG/ML VIAL IVP STA (14:17)
[2017-11-10 15:54] VITALS: BP 112/68
== END 2017-11-10 15:58 | disposition home or self-care (01) ==
LOC: ED 12:13
DX: I48.91 Unspecified atrial fibrillation (principal); Z79.01 Long term (current) use of anticoagulants; E87.1 Hypo-osmolality and hyponatremia; I10 Essential (primary) hypertension; E78.00 Pure hypercholesterolemia, unspecified; I49.9 Cardiac arrhythmia, unspecified
CPT/HCPCS: 36415; 71045; 80053; 83690; 84484; 85025; 93005; 96374; 99284; A9270

== ENCOUNTER 2017-11-11 19:05 | Emergency (ER) | payer MEDICARE, OTHER ==
[2017-11-11 19:58] LABS: BASOPHILS # (AUTO) 0.1 10^3/uL (0.0-0.1); BASOPHILS % (AUTO) 1.2 %; EOSINOPHILS # (AUTO) 0.1 10^3/uL (0.0-0.7); EOSINOPHILS % (AUTO) 1.2 %; HGB - HEMOGLOBIN 14.4 g/dL (14.0-18.0); LYMPHOCYTES # (AUTO) 2.3 10^3/uL (1.5-3.5); LYMPHOCYTES % (AUTO) 31.6 %; MEAN CORPUSCULAR HEMOGLOBIN 31.7 pg (27.0-31.0); MEAN CORPUSCULAR HGB CONC 34.4 g/dL (32.0-36.0); MEAN CORPUSCULAR VOLUME 92.1 fL (80.0-94.0); MONOCYTES # (AUTO) 0.8 10^3/uL (0.0-1.0); MONOCYTES % (AUTO) 11.2 %; NEUTROPHILS # (AUTO) 3.9 10^3/uL (1.5-6.6); NEUTROPHILS % (AUTO) 54.8 %; PLT - PLATELET COUNT 271 10^3/uL (130-450); RED BLOOD COUNT 4.55 10^6/uL (4.70-6.10); RED CELL DISTRIBUTION WIDTH 13.8 % (12.0-15.0); WHITE BLOOD COUNT 7.2 x10^3/uL (4.8-10.8)
[2017-11-11 20:13] LABS: ALBUMIN 3.8 g/dL (3.2-5.5); ALBUMIN/GLOBULIN RATIO 1.1 (1.0-2.2); BILIRUBIN,TOTAL 0.5 mg/dL (0.2-1.0); CALCIUM 9.6 mg/dL (8.5-10.3); MAGNESIUM 2.1 mg/dL (1.7-2.8); TOTAL PROTEIN 7.4 g/dL (6.7-8.2)
[2017-11-11] MEDS ORDERED: LIDOCAINE VISCOUS 2% 15 ML UDC MM STA (20:20)
[2017-11-11] MEDS ORDERED: MAG HYDROX/AL HYDROX/SIMETH 30 ML UDC PO STA (20:20)
[2017-11-11] MEDS ORDERED: FAMOTIDINE 20 MG TABLET PO STA (20:20)
--- NOTE | 2017-11-11 20:27 | XRAY Report ---
EXAM: CHEST RADIOGRAPHY EXAM DATE: 11/11/2017 08:01 PM. CLINICAL HISTORY: Fever, hx of lung failure. COMPARISON: Chest 11/10/2017 and 03/01/2017. TECHNIQUE: 1 view. FINDINGS: Lungs/Pleura: No focal opacities evident. No pleural effusion. No pneumothorax. Mediastinum: Within exam limitations, the cardiomediastinal contour is normal. Other: The patient is mildly rotated to the right. IMPRESSION: Normal single view chest. [facility] Referring Provider Line: [phone] SITE ID: [id number]
--- NOTE | 2017-11-11 20:27 | XRAY Preliminary Report ---
Exam: XR CHEST 1 VIEW X-RAY IMPRESSION: Normal single view chest. [facility] SITE ID: [id number]
--- NOTE | 2017-11-11 20:37 | ED Physician Documentation ---
PD HPI CHEST PAIN - Stated complaint Stated Complaint: CHEST PX - Chief complaint Chief Complaint: Cardiac - History obtained from History obtained from: Patient - History of Present Illness Timing - onset: Yesterday Timing - details: Gradual onset, Now resolved Quality: Indigestion Location: Substernal Associated symptoms: No: Shortness of air, Diaphoresis, Feeling faint / dizzy Similar symptoms before: Work up / diagnostics Recently seen: Emergency Dept - Additional information Additional information: Patient is a 72 year old male who is presenting to the emergency department for indigestion. patient was seen in the emergency department yesterday and at that time had an episode of a-fib that resolved with diltiazam. Patient states that this afternoon he had an episode of indigestion and nausea. Upon initial evaluation in the emergency department patient stated that he was feeling better and that his symptoms had resolved. Review of Systems Ten Systems: 10 systems reviewed and negative Cardiac: denies: Chest pain / pressure Respiratory: denies: Dyspnea, Cough GI: reports: Nausea PD PAST MEDICAL HISTORY - Past Medical History Cardiovascular: Hypertension, High cholesterol, Atrial fibrillation, Arrhythmia , Other Respiratory: None GI: None : None HEENT: None Psych: Anxiety Musculoskeletal: None Derm: None - Past Surgical History Past Surgical History: Yes HEENT: Other - Present Medications Home Medications: Ambulatory Orders Medication Instructions Recorded Confirmed Alprazolam [Xanax] 1 mg PO DAILY 11/30/14 02/04/17 Atorvastatin Calcium [Lipitor] 40 mg PO DAILY 11/30/14 02/05/17 Hydrochlorothiazide 50 mg PO DAILY 11/30/14 02/05/17 Lisinopril 20 mg PO DAILY 11/30/14 02/04/17 Apixaban [Eliquis] 2.5 mg PO 11/10/17 Metoprolol Succinate [Toprol Xl] 25 mg PO 11/10/17 Ondansetron Odt [Zofran] 4 mg TL Q6H PRN #14 tablet 11/11/17 - Allergies Allergies/Adverse Reactions: Allergies Allergy/AdvReac Type Severity Reaction Status Date / Time Penicillins Allergy passed out Verified 11/11/17 19:14 - Social History Does the pt smoke?: No Smoking Status: Never smoker Does the pt drink ETOH?: No Does the pt have substance abuse?: No - Immunizations Immunizations are current?: Yes - POLST Patient has POLST: No PD ED PE NORMAL - Vitals Vital signs reviewed: Yes - General General: Alert and oriented X 3, No acute distress - HEENT HEENT: Atraumatic - Cardiac Cardiac: RRR, No murmur - Respiratory Respiratory: No respiratory distress, Clear bilaterally - Abdomen Abdomen: Soft, Non tender, Non distended - Derm Derm: Normal color, Warm and dry, No rash - Extremities Extremities: No deformity - Neuro Neuro: Alert and oriented X 3, No motor deficit Eye Opening: Spontaneous - Psych Psych: Normal mood Results - Vitals Vitals: Vital Signs - 24 hr 11/11/17 11/11/17 19:07 21:03 Temperature 36.6 C Heart Rate 80 55 L Respiratory 18 15 Rate Blood Pressure 165/76 H 125/68 O2 Saturation 97 97 Oxygen O2 Source Room air - EKG (time done) 1914 Rate: Rate (enter#) (76) Rhythm: NSR Ischemia: T wave inversion Compare to prior EKG: Unchanged from prior EKG - Labs Labs: Laboratory Tests 11/11/17 11/11/17 11/11/17 19:52 19:52 19:52 WBC 7.2 RBC 4.55 L Hgb 14.4 Hct 42.0 MCV 92.1 MCH 31.7 H MCHC 34.4 RDW 13.8 Plt Count 271 MPV 9.0 Neut # (Auto) 3.9 Lymph # (Auto) 2.3 [place] # (Auto) 0.8 Eos # (Auto) 0.1 Baso # (Auto) 0.1 Absolute Nucleated RBC 0.00 Nucleated RBC % 0.0 Sodium 137 Potassium 4.0 Chloride 103 Carbon Dioxide 25 Anion Gap 9.0 BUN 23 H Creatinine 1.0 Estimated GFR (MDRD) 74 L Glucose 113 H Calcium 9.6 Phosphorus 3.0 Magnesium 2.1 Total Bilirubin 0.5 AST 35 ALT 37 Alkaline Phosphatase 66 Troponin I 0.07 B-Natriuretic Peptide Total Protein 7.4 Albumin 3.8 Globulin 3.6 Albumin/Globulin Ratio 1.1 Lipase 32 11/11/17 11/11/17 19:52 21:22 WBC RBC Hgb Hct MCV MCH MCHC RDW Plt Count MPV Neut # (Auto) Lymph # (Auto) [place] # (Auto) Eos # (Auto) Baso # (Auto) Absolute Nucleated RBC Nucleated RBC % Sodium Potassium Chloride Carbon Dioxide Anion Gap BUN Creatinine Estimated GFR (MDRD) Glucose Calcium Phosphorus Magnesium Total Bilirubin AST ALT Alkaline Phosphatase Troponin I 0.07 B-Natriuretic Peptide 208 H Total Protein Albumin Globulin Albumin/Globulin Ratio Lipase - Rads (name of study) chest x-ray Radiology: Final report received (no acute disease process) PD MEDICAL DECISION MAKING - ED course Complexity details: reviewed old records, reviewed results, re-evaluated patient , considered differential, d/w patient, d/w family ED course: patient was seen and examined at bedside. Patient was in no acute distress. ekg was performed and although there were t wave inversions in the lateral leads it was unchanged from the last 2 years. Patient was placed on a monitor and was nsr. iv access was gained and labs were drawn. patient was treated with pepcid, maalox and viscous lidocaine. Patient's diagnostics were within normal limits. Repeat troponin remained negative. Patient continued to deny any chest pain. patient required no further inpatient work up and was stable for discharge with outpatient follow up. - Sepsis Event Vital Signs: Vital Signs - 24 hr 11/11/17 11/11/17 19:07 21:03 Temperature 36.6 C Heart Rate 80 55 L Respiratory 18 15 Rate Blood Pressure 165/76 H 125/68 O2 Saturation 97 97 Oxygen O2 Source Room air Departure - Departure Disposition: 01 Home, Self Care Clinical Impression: Atypical chest pain Condition: Good Instructions: ED Chest Pain Atypical Unkn Cause Follow-Up: Gregorio Mendoza MD [Primary Care Provider] - Within 3 Days Prescriptions: Ondansetron Odt [Zofran] 4 mg TL Q6H PRN #14 tablet PRN Reason: Nausea / Vomiting Comments: Your diagnostics today were within normal limits. there was no significant abnormalities. That being said it is only a snapshot in time. You should follow up with your doctor on monday and you should schedule a stress test and echocardiogram. You can try pepcid, maalox or zofran for indigestion as needed. You may return to the emergency department at any time for new, worsening or uncontrollable symptoms.
[2017-11-11 22:14] VITALS: BP 122/72
== END 2017-11-11 22:13 | disposition home or self-care (01) ==
LOC: ED 19:05
DX: R07.89 Other chest pain (principal); I10 Essential (primary) hypertension; I48.91 Unspecified atrial fibrillation; E78.00 Pure hypercholesterolemia, unspecified; I49.9 Cardiac arrhythmia, unspecified; Z79.01 Long term (current) use of anticoagulants
CPT/HCPCS: 36415; 71045; 80053; 83690; 83735; 83880; 84100; 84484; 85025; 93005; 99283; A9270

== ENCOUNTER 2017-11-23 08:00 | Outpatient (CLI) | payer MEDICARE, OTHER ==
[2017-11-23 19:26] LABS: CALCIUM 9.2 mg/dL (8.5-10.3)
== END 2017-11-23 08:01 | disposition home or self-care (01) ==
LOC: LAB.WCP 08:00
PROVIDERS: ATTEND Internal Medicine Cardiovascular Disease
DX: I48.0 Paroxysmal atrial fibrillation (principal)
CPT/HCPCS: 36415; 80048

== ENCOUNTER 2017-12-20 09:25 | Emergency (ER) | payer MEDICARE, OTHER ==
[2017-12-20] MEDS ORDERED: SODIUM CHLORIDE 0.9% 1,000 ML IV ONE (09:30)
[2017-12-20] MEDS ORDERED: FLECAINIDE 50 MG TABLET PO STA (09:41)
--- NOTE | 2017-12-20 09:52 | ED Physician Documentation ---
History of Present Illness - Stated complaint Stated Complaint: RAPID HR - Chief complaint Chief Complaint: Cardiac - Additonal information Additional information: hx from pt 72 male known hx int a fib since last fall cardio Dr Yeager at [facility] on eliquis and BB as well as lisinopril and HCTZ normally in NSR occ a fib seen most recently in November and out pt echo and ST suggested and are scheduled for January pt has been in good health walking 1.5 miles every day without sx taking meds as directed no changes no excessive caffeine, decongestants etc no recent illness fever coug no recent travel or leg swelling awoke at 730 with fast palp and palp discomfort to chest - no severe pain no SOA Review of Systems Constitutional: denies: Fever, Chills Cardiac: reports: Palpitations. denies: Chest pain / pressure Respiratory: denies: Dyspnea, Cough GI: denies: Abdominal Pain, Nausea, Vomiting Musculoskeletal: denies: Extremity swelling Immunocompromised: denies: Immunocompromised, Chemotherapy PD PAST MEDICAL HISTORY - Past Medical History Cardiovascular: Hypertension, High cholesterol, Atrial fibrillation, Arrhythmia , Other Respiratory: None GI: None : None HEENT: None Psych: Anxiety Musculoskeletal: None Derm: None - Past Surgical History Past Surgical History: Yes HEENT: Other - Present Medications Home Medications: Ambulatory Orders Medication Instructions Recorded Confirmed Alprazolam [Xanax] 1 mg PO DAILY 11/30/14 02/04/17 Atorvastatin Calcium [Lipitor] 40 mg PO DAILY 11/30/14 02/05/17 Hydrochlorothiazide 50 mg PO DAILY 11/30/14 02/05/17 Lisinopril 20 mg PO DAILY 11/30/14 02/04/17 Apixaban [Eliquis] 2.5 mg PO 11/10/17 Metoprolol Succinate [Toprol Xl] 25 mg PO 11/10/17 Ondansetron Odt [Zofran] 4 mg TL Q6H PRN #14 tablet 11/11/17 Flecainide [Tambocar] 300 mg PO ONCE PRN #6 tablet 12/20/17 - Allergies Allergies/Adverse Reactions: Allergies Allergy/AdvReac Type Severity Reaction Status Date / Time Penicillins Allergy passed out Verified 11/11/17 19:14 - Social History Does the pt smoke?: No Smoking Status: Never smoker Does the pt drink ETOH?: No Does the pt have substance abuse?: No - Immunizations Immunizations are current?: Yes - POLST Patient has POLST: No PD ED PE NORMAL - Vitals Vital signs reviewed: Yes - Neck Neck: Supple, no meningeal sign - Cardiac Cardiac: No: RRR (rapid and irreg) - Respiratory Respiratory: No respiratory distress, Clear bilaterally - Abdomen Abdomen: Soft, Non tender - Derm Derm: Normal color - Extremities Extremities: No edema, No calf tenderness / cord - Neuro Neuro: Alert and oriented X 3 Results - Vitals Vitals: Vital Signs - 24 hr 12/20/17 12/20/17 12/20/17 09:29 09:57 10:29 Temperature 36.4 C L Heart Rate 134 H 124 H 116 H Respiratory 18 18 16 Rate Blood Pressure 165/89 H 165/89 H 144/69 H O2 Saturation 98 96 97 12/20/17 11:55 Temperature Heart Rate 60 Respiratory 16 Rate Blood Pressure 101/67 O2 Saturation 95 Oxygen O2 Source Room air - EKG (time done) 0932 Rate: Rate (enter#) (145) Rhythm: Atrial fibrillation Ischemia: ST depression (precordial - likely rate related), Non specific changes (flat T waves inf) Compare to prior EKG: Other (similar to November 2017) 1235 Rate: Rate (enter#) (66) Rhythm: NSR [place]: Normal Ischemia: T wave inversion (precordial) - Labs Labs: Laboratory Tests 12/20/17 12/20/17 12/20/17 09:40 09:40 10:00 WBC 6.7 RBC 4.50 L Hgb 14.3 Hct 40.8 L MCV 90.6 MCH 31.7 H MCHC 35.0 RDW 13.8 Plt Count 263 MPV 9.0 Neut # (Auto) 3.6 Lymph # (Auto) 2.2 [place] # (Auto) 0.7 Eos # (Auto) 0.1 Baso # (Auto) 0.0 Absolute Nucleated RBC 0.00 Nucleated RBC % 0.0 Sodium 135 Potassium 3.6 Chloride 102 Carbon Dioxide 24 Anion Gap 9.0 BUN 22 H Creatinine 1.1 Estimated GFR (MDRD) 66 L Glucose 130 H Calcium 9.3 Troponin I < 0.04 12/20/17 12:50 WBC RBC Hgb Hct MCV MCH MCHC RDW Plt Count MPV Neut # (Auto) Lymph # (Auto) [place] # (Auto) Eos # (Auto) Baso # (Auto) Absolute Nucleated RBC Nucleated RBC % Sodium Potassium Chloride Carbon Dioxide Anion Gap BUN Creatinine Estimated GFR (MDRD) Glucose Calcium Troponin I < 0.04 PD MEDICAL DECISION MAKING - ED course ED course: pt not on zofran and flecainide does not interact with other meds did convert with flecainide post EKG shows TWI spoke to his cardio Dr Chiu - TWI not new, pt has already been referred to EP and should keep that appt, after reviewing pts most recent echo feels rx for "pill in pocket" flecainide is safe - Sepsis Event Vital Signs: Vital Signs - 24 hr 12/20/17 12/20/17 12/20/17 09:29 09:57 10:29 Temperature 36.4 C L Heart Rate 134 H 124 H 116 H Respiratory 18 18 16 Rate Blood Pressure 165/89 H 165/89 H 144/69 H O2 Saturation 98 96 97 12/20/17 11:55 Temperature Heart Rate 60 Respiratory 16 Rate Blood Pressure 101/67 O2 Saturation 95 Oxygen O2 Source Room air Departure - Departure Disposition: 01 Home, Self Care Clinical Impression: Atrial fibrillation Qualifiers: Atrial fibrillation type: unspecified Qualified Code(s): I48.91 - Unspecified atrial fibrillation Condition: Good Instructions: ED Afib Prescriptions: Flecainide [Tambocar] 300 mg PO ONCE PRN #6 tablet PRN Reason: atrial fibrillation Comments: Your rhythm converted back to normal sinus with the flecainide I spoke to your metalizer at [facility] He advises that your EKG after conversion is unchanged from prior EKGs and that it is Ok for you to go home. He has referred you to an mapping specialist and would like you to keep that appointment And he says we can prescribed flecainide for you to have at home to take as needed if you go back into atrial fibrillation - if you feel you are having irregular heart beats you can take 30 mg - if not better in 4 hr go to the ER - if at any point you have chest pain or shortness of breath or feel faint go to the ER - flecainide interacts with some other medications so if you are prescribed anything new make sure the prescribing provider knows that you take flecainide
[2017-12-20 09:58] LABS: CALCIUM 9.3 mg/dL (8.5-10.3); CREATININE 1.1 mg/dL (0.6-1.2)
[2017-12-20 10:16] LABS: BASOPHILS % (AUTO) 0.2 %; EOSINOPHILS # (AUTO) 0.1 10^3/uL (0.0-0.7); EOSINOPHILS % (AUTO) 2.1 %; HGB - HEMOGLOBIN 14.3 g/dL (14.0-18.0); LYMPHOCYTES # (AUTO) 2.2 10^3/uL (1.5-3.5); LYMPHOCYTES % (AUTO) 32.7 %; MEAN CORPUSCULAR HEMOGLOBIN 31.7 pg (27.0-31.0); MEAN CORPUSCULAR VOLUME 90.6 fL (80.0-94.0); MONOCYTES # (AUTO) 0.7 10^3/uL (0.0-1.0); MONOCYTES % (AUTO) 10.8 %; NEUTROPHILS # (AUTO) 3.6 10^3/uL (1.5-6.6); NEUTROPHILS % (AUTO) 54.2 %; PLT - PLATELET COUNT 263 10^3/uL (130-450); RED CELL DISTRIBUTION WIDTH 13.8 % (12.0-15.0); WHITE BLOOD COUNT 6.7 x10^3/uL (4.8-10.8)
[2017-12-20 14:05] VITALS: BP 101/69
== END 2017-12-20 14:04 | disposition home or self-care (01) ==
LOC: ED 09:25
DX: I48.91 Unspecified atrial fibrillation (principal); I10 Essential (primary) hypertension; E78.00 Pure hypercholesterolemia, unspecified; Z79.01 Long term (current) use of anticoagulants
CPT/HCPCS: 36415; 80048; 84484; 85025; 93005; 96360; 96361; 99283; 99284; A9270

== ENCOUNTER 2018-02-08 13:05 | Emergency (ER) | payer MEDICARE, OTHER ==
[2018-02-08 13:24] VITALS: BP 162/72
--- NOTE | 2018-02-08 13:39 | ED Physician Documentation ---
History of Present Illness - Stated complaint Stated Complaint: HIGH BP - Chief complaint Chief Complaint: Cardiac - History obtained from History obtained from: Patient, Family () - History of Present Illness Timing: Today (This is a 72-year-old gent with history of hypertension paroxysmal atrial fibrillation without recent change in his medication. He was getting ready to go golfing started to feel nauseous and "icky" for about an hour. During that timeframe he checked his blood pressure several times and they were all in the range 180/100. He no longer feels sick he feels absolutely normal and his blood pressure is back to normal. He denies any chest pain, trouble breathing, pedal edema, or cough. No back pain.) Review of Systems Constitutional: denies: Fever, Chills Cardiac: denies: Chest pain / pressure, Palpitations Respiratory: denies: Dyspnea, Cough PD PAST MEDICAL HISTORY - Past Medical History Cardiovascular: Hypertension, High cholesterol, Atrial fibrillation, Arrhythmia , Other Respiratory: None GI: None : None HEENT: None Psych: Anxiety Musculoskeletal: None Derm: None - Past Surgical History Past Surgical History: Yes HEENT: Other - Present Medications Home Medications: Ambulatory Orders Medication Instructions Recorded Confirmed Alprazolam [Xanax] 1 mg PO DAILY 11/30/14 02/04/17 Atorvastatin Calcium [Lipitor] 40 mg PO DAILY 11/30/14 02/05/17 Hydrochlorothiazide 50 mg PO DAILY 11/30/14 02/05/17 Lisinopril 20 mg PO DAILY 11/30/14 02/04/17 Apixaban [Eliquis] 2.5 mg PO 11/10/17 Metoprolol Succinate [Toprol Xl] 25 mg PO 11/10/17 Ondansetron Odt [Zofran] 4 mg TL Q6H PRN #14 tablet 11/11/17 Flecainide [Tambocar] 300 mg PO ONCE PRN #6 tablet 12/20/17 - Allergies Allergies/Adverse Reactions: Allergies Allergy/AdvReac Type Severity Reaction Status Date / Time Penicillins Allergy passed out Verified 11/11/17 19:14 - Social History Does the pt smoke?: No Smoking Status: Never smoker Does the pt drink ETOH?: No Does the pt have substance abuse?: No - Immunizations Immunizations are current?: Yes - POLST Patient has POLST: No PD ED PE NORMAL - Vitals Vital signs reviewed: Yes (BP 146/75 on my exam) - General General: Alert and oriented X 3, No acute distress - Cardiac Cardiac: RRR, No murmur - Respiratory Respiratory: No respiratory distress, Clear bilaterally - Abdomen Abdomen: Normal bowel sounds, Soft, Non tender - Extremities Extremities: No edema - Neuro Neuro: Alert and oriented X 3, Normal speech Results - Vitals Vitals: Vital Signs - 24 hr 02/08/18 13:18 Heart Rate 63 Respiratory 16 Rate Blood Pressure 162/72 H O2 Saturation 97 Oxygen O2 Source Room air - EKG (time done) 1324 Rate: Rate (enter#) (59) Rhythm: NSR (with PAC) [place]: Normal Intervals: Normal [place] Ischemia: Non specific changes (Inferior flat T waves and modestly inverted T waves anterior and lateral. These changes are without significant difference from November 11 and December 20 of this year.) Compare to prior EKG: Unchanged from prior EKG Computer interpretation: Agree with computer PD MEDICAL DECISION MAKING - Sepsis Event Vital Signs: Vital Signs - 24 hr 02/08/18 13:18 Heart Rate 63 Respiratory 16 Rate Blood Pressure 162/72 H O2 Saturation 97 Oxygen O2 Source Room air Departure - Departure Disposition: 01 Home, Self Care Clinical Impression: Nausea Hypertension Qualifiers: Hypertension type: essential hypertension Qualified Code(s): I10 - Essential ( primary) hypertension Condition: Good Record reviewed to determine appropriate education?: Yes Instructions: ED Nausea Vomiting Comments: Return if you feel ill again. Continue current medications.
== END 2018-02-08 14:08 | disposition home or self-care (01) ==
LOC: ED 13:05
DX: R11.0 Nausea (principal); I10 Essential (primary) hypertension; R94.31 Abnormal electrocardiogram [ECG] [EKG]; E78.00 Pure hypercholesterolemia, unspecified
CPT/HCPCS: 93005; 99282

== ENCOUNTER 2018-03-06 09:16 | Outpatient (CLI) | payer MEDICARE, OTHER | END 2018-03-06 09:17 | disposition home or self-care (01) | LOC: SC 09:16 | PROVIDERS: ATTEND Nurse Practitioner Family | DX: G47.30 Sleep apnea, unspecified (principal); R06.83 Snoring; R53.83 Other fatigue | CPT/HCPCS: 99215; G0463; 99212 ==

== ENCOUNTER → 2018-03-21 | Outpatient (CLI) | payer MEDICARE, OTHER | LOC: SC 18:00 | PROVIDERS: ATTEND Internal Medicine Pulmonary Disease | DX: G47.30 Sleep apnea, unspecified (principal); R06.83 Snoring; R53.83 Other fatigue; I49.9 Cardiac arrhythmia, unspecified | CPT/HCPCS: G0399 ×2; 95806 ==

== ENCOUNTER 2018-04-25 14:23 | Outpatient (CLI) | payer MEDICARE, OTHER | END 2018-04-25 14:24 | disposition home or self-care (01) | LOC: SC 14:23 | PROVIDERS: ATTEND Nurse Practitioner Family | DX: R06.83 Snoring (principal); R06.81 Apnea, not elsewhere classified; R53.83 Other fatigue | CPT/HCPCS: 99214; G0463; 99212 ==

== ENCOUNTER 2018-05-07 08:00 | Outpatient (CLI) | payer MEDICARE, OTHER ==
[2018-05-07 14:50] LABS: ALBUMIN 3.7 g/dL (3.2-5.5); ALBUMIN/GLOBULIN RATIO 1.1 (1.0-2.2); ALKALINE PHOSPHATASE 77 IU/L (42-121); ALT ALANINE AMINOTRANSFERASE 35 IU/L (10-60); AST ASPARTATE AMINOTRANSFERASE 32 IU/L (10-42); BILIRUBIN,TOTAL 0.5 mg/dL (0.2-1.0); BUN - BLOOD UREA NITROGEN 21 mg/dL (6-20); CALCIUM 9.1 mg/dL (8.5-10.3); CARBON DIOXIDE - CO2 27 mmol/L (21-32); CHLORIDE 101 mmol/L (101-111); CHOL/HDL RATIO 3.7 (<5.0); CHOLESTEROL 198 mg/dL; GFR - MDRD 74 (>89); GLUCOSE 111 mg/dL (70-100); HDL CHOLESTEROL 53 mg/dL; LDL CHOLESTEROL,CALCULATED 120 mg/dL; LDL/HDL RATIO 2.3 (<3.6); SODIUM 137 mmol/L (135-145); VLDL CHOLESTEROL 25 mg/dL
[2018-05-07 15:23] LABS: BASOPHILS # (AUTO) 0.1 10^3/uL (0.0-0.1); EOSINOPHILS # (AUTO) 0.3 10^3/uL (0.0-0.7); EOSINOPHILS % (AUTO) 3.8 %; HGB - HEMOGLOBIN 14.2 g/dL (14.0-18.0); LYMPHOCYTES # (AUTO) 2.2 10^3/uL (1.5-3.5); LYMPHOCYTES % (AUTO) 32.1 %; MEAN CORPUSCULAR HGB CONC 35.2 g/dL (32.0-36.0); MEAN CORPUSCULAR VOLUME 90.8 fL (80.0-94.0); MEAN PLATELET VOLUME 9.2 fL (7.4-11.4); MONOCYTES # (AUTO) 0.8 10^3/uL (0.0-1.0); MONOCYTES % (AUTO) 11.5 %; NEUTROPHILS # (AUTO) 3.6 10^3/uL (1.5-6.6); NEUTROPHILS % (AUTO) 51.6 %; PLT - PLATELET COUNT 276 10^3/uL (130-450); RED BLOOD COUNT 4.45 10^6/uL (4.70-6.10); RED CELL DISTRIBUTION WIDTH 13.9 % (12.0-15.0)
== END 2018-05-07 23:59 | disposition home or self-care (01) ==
LOC: LAB.WCP 08:00
PROVIDERS: ATTEND Family Medicine
DX: I48.91 Unspecified atrial fibrillation (principal); I10 Essential (primary) hypertension; F41.9 Anxiety disorder, unspecified
CPT/HCPCS: 36415; 80053; 80061; 83721; 85025

== ENCOUNTER 2018-07-02 08:44 | Outpatient (CLI) | payer MEDICARE, OTHER | END 2018-07-02 08:45 | disposition critical access hospital (66) | LOC: EMS 08:44 | PROVIDERS: ATTEND Surgery | DX: R06.02 Shortness of breath (principal); K30 Functional dyspepsia; R20.0 Anesthesia of skin | CPT/HCPCS: A0425; A0429 ==

== ENCOUNTER 2018-07-02 09:05 | Emergency (ER) | payer MEDICARE, OTHER ==
[2018-07-02 09:41] LABS: BASOPHILS # (AUTO) 0.1 10^3/uL (0.0-0.1); BASOPHILS % (AUTO) 1.2 %; EOSINOPHILS # (AUTO) 0.2 10^3/uL (0.0-0.7); EOSINOPHILS % (AUTO) 2.5 %; LYMPHOCYTES # (AUTO) 1.9 10^3/uL (1.5-3.5); LYMPHOCYTES % (AUTO) 25.6 %; MEAN CORPUSCULAR HEMOGLOBIN 31.4 pg (27.0-31.0); MEAN CORPUSCULAR HGB CONC 34.8 g/dL (32.0-36.0); MEAN CORPUSCULAR VOLUME 90.3 fL (80.0-94.0); MEAN PLATELET VOLUME 8.4 fL (7.4-11.4); MONOCYTES # (AUTO) 0.8 10^3/uL (0.0-1.0); NEUTROPHILS # (AUTO) 4.4 10^3/uL (1.5-6.6); NEUTROPHILS % (AUTO) 59.7 %; PLT - PLATELET COUNT 255 10^3/uL (130-450); RED BLOOD COUNT 4.78 10^6/uL (4.70-6.10); RED CELL DISTRIBUTION WIDTH 13.6 % (12.0-15.0); WHITE BLOOD COUNT 7.3 x10^3/uL (4.8-10.8)
--- NOTE | 2018-07-02 10:01 | XRAY Report ---
Reason: palpitations Procedure Date: 07/02/2018 Accession Number: [id number] / [id number] Procedure: XR - Chest 1 View X-Ray CPT Code: 45520 FULL RESULT: EXAM: CHEST RADIOGRAPHY EXAM DATE: 07/02/2018 09:48 AM. CLINICAL HISTORY: Palpitations. COMPARISON: CHEST 1 VIEW 11/11/2017 7:51 PM. TECHNIQUE: 1 view. FINDINGS: Lungs/Pleura: No focal opacities evident. No pleural effusion. No pneumothorax. Biapical pleural thickening. Mediastinum: Within exam limitations, the cardiomediastinal contour is normal. Other: None. IMPRESSION: 1. No acute disease in the chest. RAD[facility]
[2018-07-02 10:02] LABS: ALBUMIN 3.9 g/dL (3.2-5.5); ALBUMIN/GLOBULIN RATIO 1.3 (1.0-2.2); BILIRUBIN,TOTAL 0.9 mg/dL (0.2-1.0); CALCIUM 9.1 mg/dL (8.5-10.3); CREATININE 1.1 mg/dL (0.6-1.2)
[2018-07-02] MEDS ORDERED: SODIUM CHLORIDE 0.9% 1,000 ML IV ONE (10:41)
[2018-07-02] MEDS ORDERED: diltiaZEM INJ 5 MG/ML VIAL IVP STA (10:56)
--- NOTE | 2018-07-02 10:56 | ED Physician Documentation ---
History of Present Illness - Stated complaint Stated Complaint: AFIB - Chief complaint Chief Complaint: Cardiac - History obtained from History obtained from: Patient, Family - History of Present Illness Timing: How many hours ago (2.5) - Additonal information Additional information: The patient is a 73-year-old male with history of paroxysmal atrial fibrillatio n, on Eliquis and metoprolol, who presents with palpitations. He awoke this morning, about 2-1/2 hours prior to arrival, with palpitations and a heart rate about 120. He felt "sweaty," lightheaded when standing, and generally weak. He denies associated chest pain or shortness of breath. He called his primary physician who advised him to take flecainide. He did not take the medication, but instead went to the medic station where he was found to be in atrial fibrillation with a ventricular rate in the 130s. He was subsequently brought by ambulance to the emergency department. Review of his medical records reveals that he was seen here with similar symptoms in November and December of 2017. In November he was converted with IV diltiazem, and in December he converted after administration of flecainide. In February his rhythm converted spontaneously. Review of Systems Constitutional: reports: Other (Feels "icky."). denies: Fever Ears: denies: Tinnitus/ringing Nose: denies: Congestion Throat: denies: Sore throat Cardiac: reports: Palpitations. denies: Chest pain / pressure Respiratory: denies: Dyspnea, Cough GI: denies: Abdominal Pain, Nausea, Vomiting : denies: Dysuria Skin: denies: Rash Musculoskeletal: denies: Extremity swelling Neurologic: denies: Focal weakness, Numbness, Headache PD PAST MEDICAL HISTORY - Past Medical History Cardiovascular: Hypertension, High cholesterol, Atrial fibrillation, Arrhythmia, Other Respiratory: None GI: None : None HEENT: None Psych: Anxiety Musculoskeletal: None Derm: None - Past Surgical History Past Surgical History: Yes HEENT: Other - Present Medications Home Medications: Ambulatory Orders Medication Instructions Recorded Confirmed Alprazolam [Xanax] 1 mg PO DAILY 11/30/14 02/04/17 Atorvastatin Calcium [Lipitor] 40 mg PO DAILY 11/30/14 02/05/17 Hydrochlorothiazide 50 mg PO DAILY 11/30/14 02/05/17 Lisinopril 10 mg PO DAILY 11/30/14 02/04/17 Apixaban [Eliquis] 5 mg PO 11/10/17 Metoprolol Succinate [Toprol Xl] 25 mg PO 11/10/17 Ondansetron Odt [Zofran] 4 mg TL Q6H PRN #14 tablet 11/11/17 07/02/18 Flecainide [Tambocar] 300 mg PO ONCE PRN #6 tablet 12/20/17 - Allergies Allergies/Adverse Reactions: Allergies Allergy/AdvReac Type Severity Reaction Status Date / Time Penicillins Allergy passed out Verified 07/02/18 09:14 - Living Situation Living Situation: reports: With spouse/s.o. - Social History Does the pt smoke?: No Smoking Status: Never smoker Does the pt drink ETOH?: No Does the pt have substance abuse?: No - Immunizations Immunizations are current?: Yes - POLST Patient has POLST: No PD ED PE NORMAL - Vitals Vital signs reviewed: Yes (Hypertensive and tachycardic.) - General General: Alert and oriented X 3, Well developed/nourished - HEENT HEENT: Atraumatic, Pharynx benign - Neck Neck: No adenopathy, No JVD - Cardiac Cardiac: No murmur, Other (Rapid rate, irregularly irregular rhythm.) - Respiratory Respiratory: No respiratory distress, Clear bilaterally - Abdomen Abdomen: Soft, Non tender - Back Back: No CVA TTP - Derm Derm: No rash - Extremities Extremities: No edema, No calf tenderness / cord - Neuro Neuro: Alert and oriented X 3, No motor deficit, Normal speech Results - Vitals Vitals: Vital Signs - 24 hr 07/02/18 07/02/18 07/02/18 10:00 11:10 11:14 Temperature Heart Rate 110 H 113 H 95 Respiratory 14 14 17 Rate Blood Pressure 143/100 H 120/86 H 142/85 H O2 Saturation 97 96 96 07/02/18 07/02/18 07/02/18 12:30 14:04 14:50 Temperature Heart Rate 138 H 69 70 Respiratory 14 16 15 Rate Blood Pressure 155/82 H 121/82 H 114/72 O2 Saturation 95 95 96 07/02/18 15:07 Temperature 36.3 C L Heart Rate 64 Respiratory 18 Rate Blood Pressure 132/78 H O2 Saturation 95 Oxygen O2 Source Room air - EKG (time done) 09:14 Rate: Rate (enter#) (124) Rhythm: Atrial fibrillation Echo: Normal Ischemia: T wave inversion (diffusely) Computer interpretation: Agree with computer - Labs Labs: Laboratory Tests 07/02/18 07/02/18 07/02/18 09:35 09:35 09:35 WBC 7.3 RBC 4.78 Hgb 15.0 Hct 43.2 MCV 90.3 MCH 31.4 H MCHC 34.8 RDW 13.6 Plt Count 255 MPV 8.4 Neut # (Auto) 4.4 Lymph # (Auto) 1.9 [place] # (Auto) 0.8 Eos # (Auto) 0.2 Baso # (Auto) 0.1 Absolute Nucleated RBC 0.01 Nucleated RBC % 0.1 Sodium 134 L Potassium 3.6 Chloride 102 Carbon Dioxide 23 Anion Gap 9.0 BUN 25 H Creatinine 1.1 Estimated GFR (MDRD) 66 L Glucose 123 H Calcium 9.1 Total Bilirubin 0.9 AST 33 ALT 40 Alkaline Phosphatase 72 Troponin I < 0.04 Total Protein 7.0 Albumin 3.9 Globulin 3.1 Albumin/Globulin Ratio 1.3 Lipase 31 - Rads (name of study) CXR Radiology: Prelim report reviewed, EMP read contemporaneously, See rad report PD MEDICAL DECISION MAKING - ED course Complexity details: reviewed old records, reviewed results, re-evaluated patient, considered differential, d/w patient, d/w family ED course: The patient's presentation is significant for recurrent atrial fibrillation with rapid ventricular response. His presentation does not suggest acute coronary ischemic event, and troponin level is normal. He is anticoagulated on Eliquis. Treatment in the emergency department included administration of diltiazem 10 mg IV. This temporarily slowed his rate into the 80s, but did not convert his rhythm. Normal saline was administered IV, and flecainide 300 mg is administered orally. His rhythm subsequently converted to normal sinus, with rate in the 60s. He was aware of an improvement in his condition as soon as the right converted. He plans outpatient follow-up with his range aide, and I discussed with him and his potentially worrisome signs or symptoms that should prompt reevaluation in the emergency department. Departure - Departure Disposition: 01 Home, Self Care Clinical Impression: Atrial fibrillation with RVR Condition: Stable Instructions: ED Afib Follow-Up: Mirtha Duenas MD [Physician No Access] - Gregorio Mendoza MD [Primary Care Provider] - Comments: Continue your medication as previously prescribed. If you develop recurrent episode of atrial fibrillation, take flecainide as previously prescribed. Follow-up with Dr. Mendoza or your range aide, Dr. Duenas. Call to schedule appointment. Return to the emergency department if you develop persistent tachycardia, lightheadedness, shortness of breath, chest pain, or otherwise worsening symptoms. Discharge Date/Time: 07/02/18 15:15
[2018-07-02] MEDS ORDERED: MAG HYDROX/AL HYDROX/SIMETH 30 ML UDC PO STA (11:24)
[2018-07-02] MEDS ORDERED: LIDOCAINE VISCOUS 2% 15 ML UDC MM STA (11:24)
[2018-07-02] MEDS ORDERED: FLECAINIDE 50 MG TABLET PO STA (12:38)
[2018-07-02 15:07] VITALS: BP 132/78
== END 2018-07-02 15:15 | disposition home or self-care (01) ==
LOC: EDUNIT# → ED 09:05
DX: I48.91 Unspecified atrial fibrillation (principal); R00.2 Palpitations; R42 Dizziness and giddiness; I48.0 Paroxysmal atrial fibrillation; Z79.01 Long term (current) use of anticoagulants; I10 Essential (primary) hypertension; E78.00 Pure hypercholesterolemia, unspecified
CPT/HCPCS: 36415; 71045; 80053; 83690; 84484; 85025; 93005; 96361; 96374; 99284; A9270

== ENCOUNTER 2018-11-19 21:32 | Emergency (ER) | payer MEDICARE, OTHER ==
[2018-11-19 22:22] LABS: BASOPHILS # (AUTO) 0.1 10^3/uL (0.0-0.1); EOSINOPHILS # (AUTO) 0.3 10^3/uL (0.0-0.7); EOSINOPHILS % (AUTO) 3.3 %; HGB - HEMOGLOBIN 14.4 g/dL (14.0-18.0); LYMPHOCYTES # (AUTO) 3.5 10^3/uL (1.5-3.5); LYMPHOCYTES % (AUTO) 38.7 %; MEAN CORPUSCULAR HEMOGLOBIN 31.9 pg (27.0-31.0); MEAN CORPUSCULAR HGB CONC 34.9 g/dL (32.0-36.0); MEAN CORPUSCULAR VOLUME 91.5 fL (80.0-94.0); MEAN PLATELET VOLUME 8.5 fL (7.4-11.4); MONOCYTES % (AUTO) 11.4 %; NEUTROPHILS # (AUTO) 4.2 10^3/uL (1.5-6.6); NEUTROPHILS % (AUTO) 45.6 %; PLT - PLATELET COUNT 264 10^3/uL (130-450); RED BLOOD COUNT 4.52 10^6/uL (4.70-6.10); RED CELL DISTRIBUTION WIDTH 13.7 % (12.0-15.0); WHITE BLOOD COUNT 9.1 x10^3/uL (4.8-10.8)
[2018-11-19 22:37] LABS: ALBUMIN 3.8 g/dL (3.2-5.5); ALBUMIN/GLOBULIN RATIO 1.1 (1.0-2.2); BILIRUBIN,TOTAL 0.6 mg/dL (0.2-1.0); CALCIUM 9.3 mg/dL (8.5-10.3); CREATININE 1.7 mg/dL (0.6-1.2); TOTAL PROTEIN 7.4 g/dL (6.7-8.2)
[2018-11-20] MEDS ORDERED: SODIUM CHLORIDE 0.9% 1,000 ML IV ONE ×2 (00:07→00:57)
--- NOTE | 2018-11-20 00:08 | ED Physician Documentation ---
History of Present Illness - Stated complaint Stated Complaint: FAST HEART - Chief complaint Chief Complaint: Cardiac - History obtained from History obtained from: Patient, Family - History of Present Illness Timing: Today - Additonal information Additional information: 73-year-old male with history of atrial fibrillation that has been intermittent has developed symptoms this evening and he is come to the emergency department with a feeling of emptiness and a rapid heart rate. He states that he was out playing golf yesterday and feeling well and that he has not been ill recently. He did spend some time outside again as well today. Review of Systems Constitutional: denies: Fever Eyes: denies: Decreased vision Ears: denies: Ear pain Nose: denies: Congestion Throat: denies: Sore throat Cardiac: reports: Palpitations. denies: Chest pain / pressure, Pedal edema, Calf pain Respiratory: denies: Dyspnea, Cough GI: denies: Nausea, Vomiting : denies: Dysuria PD PAST MEDICAL HISTORY - Past Medical History Past Medical History: No Cardiovascular: Hypertension, High cholesterol, Atrial fibrillation, Arrhythmia, Other Respiratory: None Neuro: None Endocrine/Autoimmune: None GI: None : None HEENT: None Psych: Anxiety Musculoskeletal: None Derm: None - Past Surgical History Past Surgical History: Yes HEENT: Other - Present Medications Home Medications: Ambulatory Orders Medication Instructions Recorded Confirmed Alprazolam [Xanax] 1 mg PO DAILY 11/30/14 11/19/18 Atorvastatin Calcium [Lipitor] 40 mg PO DAILY 11/30/14 11/19/18 Hydrochlorothiazide 50 mg PO DAILY 11/30/14 11/19/18 Lisinopril 10 mg PO DAILY 11/30/14 11/19/18 Apixaban [Eliquis] 5 mg PO DAILY 11/10/17 11/19/18 Flecainide [Tambocar] 300 mg PO ONCE PRN #6 tablet 12/20/17 11/19/18 - Allergies Allergies/Adverse Reactions: Allergies Allergy/AdvReac Type Severity Reaction Status Date / Time Penicillins Allergy passed out Verified 11/19/18 22:04 - Social History Does the pt smoke?: No Smoking Status: Never smoker Does the pt drink ETOH?: No Does the pt have substance abuse?: No - Immunizations Immunizations are current?: Yes - POLST Patient has POLST: No PD ED PE NORMAL - Vitals Vital signs reviewed: Yes (tachy and hypertensive ) - General General: Alert and oriented X 3, No acute distress, Well developed/nourished - HEENT HEENT: Atraumatic, PERRL, EOMI - Neck Neck: Supple, no meningeal sign, No bony TTP - Cardiac Cardiac: No murmur, Other (rapid irregularly irregular) - Respiratory Respiratory: No respiratory distress, Clear bilaterally - Abdomen Abdomen: Soft, Non tender - Back Back: No CVA TTP, No spinal TTP - Derm Derm: Normal color, Warm and dry, No rash - Extremities Extremities: No deformity, No edema - Neuro Neuro: Alert and oriented X 3, vending manager 2-12 intact, No motor deficit, No sensory deficit, Normal speech Eye Opening: Spontaneous Motor: Obeys Commands Verbal: Oriented GCS Score: 15 - Psych Psych: Normal mood, Normal affect Results - Vitals Vitals: Vital Signs - 24 hr 11/19/18 11/19/18 11/19/18 22:00 23:36 23:53 Temperature 36.1 C L 36.4 C L Heart Rate 137 H 102 H Respiratory 18 18 Rate Blood Pressure 152/92 H 134/62 H Blood Pressure 134/62 H [Left] O2 Saturation 97 97 11/20/18 11/20/18 00:25 02:25 Temperature Heart Rate 113 H 69 Respiratory 16 16 Rate Blood Pressure 157/96 H 109/78 Blood Pressure [Left] O2 Saturation 97 97 Oxygen O2 Source Room air - EKG (time done) 2145 Rate: Rate (enter#) (137) Rhythm: Atrial fibrillation Ischemia: ST depression Other comments: Other comments (early transition) Computer interpretation: Agree with computer - Labs Labs: Laboratory Tests 11/19/18 11/19/18 11/19/18 22:17 22:17 22:17 WBC 9.1 RBC 4.52 L Hgb 14.4 Hct 41.4 L MCV 91.5 MCH 31.9 H MCHC 34.9 RDW 13.7 Plt Count 264 MPV 8.5 Neut # (Auto) 4.2 Lymph # (Auto) 3.5 [place] # (Auto) 1.0 Eos # (Auto) 0.3 Baso # (Auto) 0.1 Absolute Nucleated RBC 0.00 Nucleated RBC % 0.0 Sodium 135 Potassium 3.8 Chloride 101 Carbon Dioxide 22 Anion Gap 12.0 BUN 33 H Creatinine 1.7 H Estimated GFR (MDRD) 40 L Glucose 126 H Calcium 9.3 Total Bilirubin 0.6 AST 32 ALT 36 Alkaline Phosphatase 75 Troponin I < 0.04 Total Protein 7.4 Albumin 3.8 Globulin 3.6 Albumin/Globulin Ratio 1.1 Lipase 33 Procedures - IVC sono (time) 2350 Bedside IVC sono: IVC measures (cm) (1.23), Dehydration (est 1 liter deficit) PD MEDICAL DECISION MAKING - ED course Complexity details: reviewed old records, reviewed results, re-evaluated patient, considered differential, d/w patient, d/w family ED course: 73-year-old male with a history of intermittent atrial fibrillation is in atrial fibrillation with a rapid ventricular response and he is dehydrated. He is initially administered a liter of saline and he does bring his heart rate down to the 110 range but he is still in A. fib with RVR. He is administered diltiazem 30 mg intravenously with improvement in his rate to the 60s and 70s but he did not convert today. He is asymptomatic. I did discuss with the patient the use of a fit bit for recording the amount of time he is in atrial fibrillation. He has follow-up with his courtesy car driver on 12 December. I have asked the patient to bring his Fitbit with him. Departure - Departure Disposition: 01 Home, Self Care Clinical Impression: Atrial fibrillation with RVR, Dehydration Condition: Stable Instructions: ED Afib, ED Dehydration Follow-Up: Gregorio Mendoza MD [Primary Care Provider] - Discharge Date/Time: 11/20/18 02:54
[2018-11-20] MEDS ORDERED: diltiaZEM INJ 5 MG/ML VIAL IVP STA (00:38)
[2018-11-20 02:36] VITALS: BP 109/78
== END 2018-11-20 02:54 | disposition home or self-care (01) ==
LOC: ED 21:32
DX: I48.91 Unspecified atrial fibrillation (principal); E86.0 Dehydration; I10 Essential (primary) hypertension; Z79.01 Long term (current) use of anticoagulants
CPT/HCPCS: 36415; 80053; 83690; 84484; 85025; 93005; 96361; 96374; 99283; 99284

== ENCOUNTER 2018-11-21 08:07 | Emergency (ER) | payer MEDICARE, OTHER ==
--- NOTE | 2018-11-21 08:15 | ED Physician Documentation ---
History of Present Illness - Stated complaint Stated Complaint: ELEVATED HR/NUMBNESS IN LEFT ARM - History obtained from History obtained from: Patient - History of Present Illness Timing: Prior to arrival - Additonal information Additional information: Patient is a 73-year-old male with extensive cardiac history including paroxysmal atrial fibrillation presenting with recurrent atrial fibrillation. Patient notes that over the past several hours he started to feel strange and slightly warm. Patient denies actual palpitations or racing heartbeat. He also denies chest pain, but admits to mild shortness of breath but is unsure if this is related to anxiety. Patient denies lightheadedness, dizziness, passing out, vomiting, abdominal pain, urinary or stool changes. Patient is compliant with all his medications. Patient is scheduled to see his test facility engineer soon. As he is having recurrent episodes, they are discussing surgical intervention. No other improving or worsening factors noted. Review of Systems Cardiac: denies: Chest pain / pressure, Palpitations Respiratory: reports: Dyspnea GI: denies: Abdominal Pain, Nausea, Vomiting PD PAST MEDICAL HISTORY - Past Medical History Cardiovascular: Hypertension, High cholesterol, Atrial fibrillation, Arrhythmia, Other Respiratory: None Neuro: None Endocrine/Autoimmune: None GI: None : None HEENT: None Psych: Anxiety Musculoskeletal: None Derm: None - Past Surgical History Past Surgical History: Yes HEENT: Other - Present Medications Home Medications: Ambulatory Orders Medication Instructions Recorded Confirmed Alprazolam [Xanax] 1 mg PO DAILY 11/30/14 11/19/18 Atorvastatin Calcium [Lipitor] 40 mg PO DAILY 11/30/14 11/19/18 Hydrochlorothiazide 50 mg PO DAILY 11/30/14 11/19/18 Lisinopril 10 mg PO DAILY 11/30/14 11/19/18 Apixaban [Eliquis] 5 mg PO DAILY 11/10/17 11/19/18 Flecainide [Tambocar] 300 mg PO ONCE PRN #6 tablet 12/20/17 11/19/18 - Allergies Allergies/Adverse Reactions: Allergies Allergy/AdvReac Type Severity Reaction Status Date / Time Penicillins Allergy passed out Verified 11/19/18 22:04 - Social History Does the pt smoke?: No Smoking Status: Never smoker Does the pt drink ETOH?: No Does the pt have substance abuse?: No - Immunizations Immunizations are current?: Yes - POLST Patient has POLST: No PD ED PE NORMAL - Vitals Vital signs reviewed: Yes - General General: Alert and oriented X 3, No acute distress, Well developed/nourished - HEENT HEENT: Atraumatic, Moist mucous membranes - Cardiac Cardiac: No murmur. No: RRR (Tachycardic) - Respiratory Respiratory: No respiratory distress, Clear bilaterally - Abdomen Abdomen: Soft, Non tender, Non distended - Derm Derm: Normal color, Warm and dry, No rash - Extremities Extremities: No deformity, No tenderness to palpate - Neuro Neuro: Alert and oriented X 3, No motor deficit, No sensory deficit - Psych Psych: Normal mood, Normal affect Results - Vitals Vitals: Vital Signs - 24 hr 11/21/18 11/21/18 11/21/18 08:09 08:56 09:14 Temperature 36.4 C L Heart Rate 127 H 88 77 Respiratory 16 16 12 Rate Blood Pressure 169/70 H 125/78 O2 Saturation 99 98 99 11/21/18 11/21/18 11/21/18 09:19 09:33 09:42 Temperature Heart Rate 67 70 70 Respiratory 18 16 16 Rate Blood Pressure 114/84 H 102/67 102/67 O2 Saturation 95 95 96 Oxygen O2 Source Room air - EKG (time done) 0809 Rate: Rate (enter#) (127) Rhythm: Atrial fibrillation Ischemia: Non specific changes 0936 Rate: Rate (enter#) (65) Rhythm: Atrial fibrillation Ischemia: T wave inversion - Labs Labs: Laboratory Tests 11/21/18 11/21/18 11/21/18 08:38 08:38 08:38 WBC 7.7 RBC 4.75 Hgb 14.5 Hct 43.8 MCV 92.2 MCH 30.5 MCHC 33.1 RDW 13.4 Plt Count 270 MPV 10.5 Neut # (Auto) 4.4 Lymph # (Auto) 2.3 [place] # (Auto) 0.7 Eos # (Auto) 0.2 Baso # (Auto) 0.1 Absolute Nucleated RBC 0.00 Nucleated RBC % 0.0 PT 16.9 H INR 1.5 H APTT 31.3 Sodium 135 Potassium 4.0 Chloride 103 Carbon Dioxide 21 Anion Gap 11.0 BUN 18 Creatinine 1.1 Estimated GFR (MDRD) 66 L Glucose 161 H Calcium 9.0 Total Bilirubin 1.2 H AST 30 ALT 30 Alkaline Phosphatase 70 Troponin I B-Natriuretic Peptide Total Protein 7.1 Albumin 3.7 Globulin 3.4 Albumin/Globulin Ratio 1.1 Lipase 28 TSH 11/21/18 11/21/18 11/21/18 08:38 08:38 08:38 WBC RBC Hgb Hct MCV MCH MCHC RDW Plt Count MPV Neut # (Auto) Lymph # (Auto) [place] # (Auto) Eos # (Auto) Baso # (Auto) Absolute Nucleated RBC Nucleated RBC % PT INR APTT Sodium Potassium Chloride Carbon Dioxide Anion Gap BUN Creatinine Estimated GFR (MDRD) Glucose Calcium Total Bilirubin AST ALT Alkaline Phosphatase Troponin I < 0.04 B-Natriuretic Peptide 478 H Total Protein Albumin Globulin Albumin/Globulin Ratio Lipase TSH 2.10 PD MEDICAL DECISION MAKING - ED course Complexity details: reviewed old records, reviewed results, re-evaluated patient, considered differential, d/w patient, d/w family ED course: Patient has history of paroxysmal atrial fibrillation and presents today with recurrence of atrial fibrillation with RVR. Patient is relatively asymptomatic. EKG obtained which indicated atrial fibrillation with RVR. IV established and fluid administered. Screening lab work and chest x-ray ordered. Nursing staff assisted patient with vasovagal maneuvers which brought patient's heart rate down to the high 90s. At this time, diltiazem will be held. ASA ordered, but declined by patient. Patient's heart rate remained in the high 90s and low 100s but did not convert. Patient otherwise has no complaints. Feel that it is appropriate to give low dose of diltiazem to encourage rhythm conversion and assist with further rate control. Do not feel patient requires full dose of diltiazem, however, per chart review, patient usually has rate control, but has had difficulty with conversion back to sinus rhythm when he has been in the ED.Following diltiazem, patient's rate even better controlled, but unfortunately did not convert rhythms. Do not feel patient requires hospitalization or emergent consult at this time. Discussed results and recommendations with patient including continuation of all medications at home, strict return precautions, and need to contact cardiology in the next 1 to 2 days to discuss ED visits this week and ask for earlier follow-up appointment then December 12 as scheduled. Patient and family comfortable with this discharge plan. Departure - Departure Disposition: Home, Self Care Clinical Impression: Atrial fibrillation Qualifiers: Atrial fibrillation type: paroxysmal Qualified Code(s): I48.0 - Paroxysmal atrial fibrillation Condition: Good Instructions: ED Afib Follow-Up: Gregorio Mendoza MD [Primary Care Provider] - Tomorrow Comments: Please continue all home medications as previously instructed. Please contact your primary care physician and test facility engineer later today or tomorrow to alert them to your multiple ED visits this week and need for close follow-up in the next several days. Hope that cardiology can move up your appointment from December 12. Return to ED sooner if experience worsening symptoms or other concerns.
[2018-11-21] MEDS ORDERED: SODIUM CHLORIDE 0.9% 1,000 ML IV ONE (08:20)
[2018-11-21] MEDS ORDERED: ASPIRIN CHEW 81 MG TABLET PO STA (08:26)
[2018-11-21] MEDS ORDERED: diltiaZEM INJ 5 MG/ML VIAL IVP STA (08:27)
[2018-11-21 08:48] LABS: BASOPHILS # (AUTO) 0.1 10^3/uL (0.0-0.1); EOSINOPHILS # (AUTO) 0.2 10^3/uL (0.0-0.7); EOSINOPHILS % (AUTO) 2.7 %; HGB - HEMOGLOBIN 14.5 g/dL (14.0-18.0); LYMPHOCYTES # (AUTO) 2.3 10^3/uL (1.5-3.5); LYMPHOCYTES % (AUTO) 29.6 %; MEAN CORPUSCULAR HEMOGLOBIN 30.5 pg (27.0-31.0); MEAN CORPUSCULAR HGB CONC 33.1 g/dL (32.0-36.0); MEAN CORPUSCULAR VOLUME 92.2 fL (80.0-94.0); MEAN PLATELET VOLUME 10.5 fL (7.4-11.4); MONOCYTES # (AUTO) 0.7 10^3/uL (0.0-1.0); MONOCYTES % (AUTO) 9.2 %; NEUTROPHILS # (AUTO) 4.4 10^3/uL (1.5-6.6); NEUTROPHILS % (AUTO) 57.2 %; PLT - PLATELET COUNT 270 10^3/uL (130-450); RED BLOOD COUNT 4.75 10^6/uL (4.70-6.10); RED CELL DISTRIBUTION WIDTH 13.4 % (12.0-15.0); WHITE BLOOD COUNT 7.7 x10^3/uL (4.8-10.8)
[2018-11-21 09:00] LABS: INR 1.5 (0.8-1.2); PT - PROTHROMBIN TIME 16.9 secs (9.9-12.6)
[2018-11-21 09:02] LABS: ALBUMIN 3.7 g/dL (3.2-5.5); ALBUMIN/GLOBULIN RATIO 1.1 (1.0-2.2); BILIRUBIN,TOTAL 1.2 mg/dL (0.2-1.0); CREATININE 1.1 mg/dL (0.6-1.2); TOTAL PROTEIN 7.1 g/dL (6.7-8.2)
[2018-11-21 09:07] LABS: PARTIAL THROMBOPLASTIN TIME 31.3 secs (24.9-33.3)
--- NOTE | 2018-11-21 09:10 | XRAY Report ---
Reason: chest pain Procedure Date: 11/21/2018 Accession Number: [id number] / [id number] Procedure: XR - Chest 1 View X-Ray CPT Code: 60656 FULL RESULT: EXAM: CHEST RADIOGRAPHY EXAM DATE: 11/21/2018 08:58 AM. CLINICAL HISTORY: Chest pain. COMPARISON: CHEST 1 VIEW 07/02/2018 9:36 AM. TECHNIQUE: 1 view. FINDINGS: Lungs/Pleura: No focal opacities evident. No pleural effusion. No pneumothorax. Mediastinum: Within exam limitations, the cardiomediastinal contour is normal. There is mild atherosclerotic calcification of the aortic arch. Other: No acute osseous abnormality. IMPRESSION: No acute cardiopulmonary abnormality. [facility]
[2018-11-21 11:11] VITALS: BP 104/65
== END 2018-11-21 10:45 | disposition home or self-care (01) ==
LOC: ED 08:07
DX: I48.0 Paroxysmal atrial fibrillation (principal); Z79.01 Long term (current) use of anticoagulants; I10 Essential (primary) hypertension
CPT/HCPCS: 36415; 71045; 83690; 83880; 84484; 85610; 85730; 93005; 96360; 99283; A9270; 80053; 84443; 85025

== ENCOUNTER 2018-11-22 03:27 | Emergency (ER) | payer MEDICARE, OTHER ==
--- NOTE | 2018-11-22 03:44 | ED Physician Documentation ---
PD HPI NVD - Stated complaint Stated Complaint: NVD - Chief complaint Chief Complaint: Abd Pain - History obtained from History obtained from: Patient - History of Present Illness Timing - details: Gradual onset, Waxing and waning Pain level max: 0 Pain level now: 0 Associated symptoms: No: Fever, Abdominal pain (feels bloated and "gassy" but no abdominal pain per se), Chest pain, Dizzy Improved by: Other (nothing) Worsened by: Other (no exacerbating factors) Similar symptoms before: Has not had sx before Recently seen: Emergency Dept - Additonal information Additional information: T+R from this ED 11/19 and 11/21 for SUSAN. He says he is not here for SUSAN today and does not feel that he is having episode of SUSAN; his chief complaint is diarrhea, nausea (no vomiting), and feeling abdominal bloating and "gassy". these symptoms started this morning Review of Systems Cardiac: reports: Reviewed and negative Respiratory: reports: Reviewed and negative GI: reports: Nausea, Diarrhea. denies: Abdominal Pain, Abdominal Swelling (bloated sensation, but does not feel it is actually swollen), Vomiting, Constipation : denies: Dysuria, Frequency Musculoskeletal: reports: Reviewed and negative PD PAST MEDICAL HISTORY - Past Medical History Cardiovascular: Hypertension, High cholesterol, Atrial fibrillation, Arrhythmia, Other Respiratory: None Neuro: None Endocrine/Autoimmune: None GI: None : None HEENT: None Psych: Anxiety Musculoskeletal: None Derm: None - Past Surgical History Past Surgical History: Yes HEENT: Other - Present Medications Home Medications: Ambulatory Orders Medication Instructions Recorded Confirmed Alprazolam [Xanax] 1 mg PO DAILY 11/30/14 11/19/18 Atorvastatin Calcium [Lipitor] 40 mg PO DAILY 11/30/14 11/19/18 Hydrochlorothiazide 50 mg PO DAILY 11/30/14 11/19/18 Lisinopril 10 mg PO DAILY 11/30/14 11/19/18 Apixaban [Eliquis] 5 mg PO DAILY 11/10/17 11/19/18 Flecainide [Tambocar] 300 mg PO ONCE PRN #6 tablet 12/20/17 11/19/18 Ondansetron Odt [Zofran] 4 mg TL Q6H PRN #10 tablet 11/22/18 - Allergies Allergies/Adverse Reactions: Allergies Allergy/AdvReac Type Severity Reaction Status Date / Time Penicillins Allergy passed out Verified 11/22/18 03:43 - Social History Does the pt smoke?: No Smoking Status: Never smoker Does the pt drink ETOH?: No Does the pt have substance abuse?: No - Immunizations Immunizations are current?: Yes - POLST Patient has POLST: No PD ED PE NORMAL - Vitals Vital signs reviewed: Yes - General General: Alert and oriented X 3, No acute distress, Well developed/nourished - HEENT HEENT: Moist mucous membranes - Neck Neck: Supple, no meningeal sign - Cardiac Cardiac: No murmur - Respiratory Respiratory: No respiratory distress, Clear bilaterally - Abdomen Abdomen: Normal bowel sounds, Soft, Non tender, Non distended, No organomegaly PD ED PE EXPANDED - Cardiac Cardiac: Tachy, Irregularly irregular Results - Vitals Vitals: Vital Signs - 24 hr 11/22/18 11/22/18 11/22/18 03:40 04:01 04:27 Temperature 37.1 C Heart Rate 67 138 H 110 H Respiratory 17 18 15 Rate Blood Pressure 158/90 H 109/99 H 146/96 H O2 Saturation 97 98 97 11/22/18 11/22/18 11/22/18 05:39 05:59 06:04 Temperature Heart Rate 123 H 109 H 104 H Respiratory 19 Rate Blood Pressure 143/78 H 143/101 H 146/76 H O2 Saturation 97 11/22/18 11/22/18 11/22/18 06:09 06:17 06:26 Temperature Heart Rate 99 89 84 Respiratory Rate Blood Pressure 112/66 119/74 132/76 H O2 Saturation 11/22/18 06:41 Temperature Heart Rate Respiratory 16 Rate Blood Pressure O2 Saturation Oxygen O2 Source Room air - EKG (time done) No standard instances Rate: Rate (enter#) (133) Rhythm: Atrial fibrillation [place]: Normal Ischemia: T wave inversion (V4-V6) - Labs Labs: Laboratory Tests 11/22/18 11/22/18 11/22/18 04:15 04:15 04:15 WBC 9.2 RBC 4.71 Hgb 14.2 Hct 42.8 MCV 90.9 MCH 30.1 MCHC 33.2 RDW 13.2 Plt Count 268 MPV 10.1 Neut # (Auto) 6.3 Lymph # (Auto) 1.9 [place] # (Auto) 0.9 Eos # (Auto) 0.0 Baso # (Auto) 0.1 Absolute Nucleated RBC 0.00 Nucleated RBC % 0.0 Sodium 139 Potassium 3.7 Chloride 106 Carbon Dioxide 19 L Anion Gap 14.0 H BUN 14 Creatinine 1.0 Estimated GFR (MDRD) 73 L Glucose 138 H Calcium 9.4 Troponin I < 0.04 PD MEDICAL DECISION MAKING - ED course Complexity details: reviewed old records, reviewed results, re-evaluated patient, considered differential, d/w patient ED course: rate controlled with 10mg IV cardizem. he had modest relief of symptoms with zofran, IV fluids, loperamide, protonix, and simethicone Departure - Departure Disposition: 01 Home, Self Care Clinical Impression: Abdominal bloating, Atrial fibrillation with RVR Condition: Good Instructions: ED Afib, ED Diet Vomiting Diarrhea Follow-Up: Gregorio Mendoza MD [Primary Care Provider] - Prescriptions: Ondansetron Odt [Zofran] 4 mg TL Q6H PRN #10 tablet PRN Reason: Nausea / Vomiting Comments: You can take simethicone for abdominal bloating and gas; this medication is available over the counter and no prescription is necessary. Discharge Date/Time: 11/22/18 06:42
[2018-11-22] MEDS ORDERED: SODIUM CHLORIDE 0.9% 1,000 ML IV STA (04:07)
[2018-11-22] MEDS ORDERED: SIMETHICONE CHEW 80 MG TABLET PO STA (04:07)
[2018-11-22] MEDS ORDERED: LOPERAMIDE 2 MG CAPSULE PO STA (04:07)
[2018-11-22] MEDS ORDERED: ONDANSETRON 4 MG/2 ML VIAL IVP STA (04:08)
[2018-11-22 04:21] LABS: BASOPHILS # (AUTO) 0.1 10^3/uL (0.0-0.1); BASOPHILS % (AUTO) 0.5 %; EOSINOPHILS % (AUTO) 0.4 %; HGB - HEMOGLOBIN 14.2 g/dL (14.0-18.0); LYMPHOCYTES # (AUTO) 1.9 10^3/uL (1.5-3.5); LYMPHOCYTES % (AUTO) 20.5 %; MEAN CORPUSCULAR HEMOGLOBIN 30.1 pg (27.0-31.0); MEAN CORPUSCULAR HGB CONC 33.2 g/dL (32.0-36.0); MEAN CORPUSCULAR VOLUME 90.9 fL (80.0-94.0); MEAN PLATELET VOLUME 10.1 fL (7.4-11.4); MONOCYTES # (AUTO) 0.9 10^3/uL (0.0-1.0); MONOCYTES % (AUTO) 9.7 %; NEUTROPHILS # (AUTO) 6.3 10^3/uL (1.5-6.6); NEUTROPHILS % (AUTO) 68.5 %; PLT - PLATELET COUNT 268 10^3/uL (130-450); RED BLOOD COUNT 4.71 10^6/uL (4.70-6.10); RED CELL DISTRIBUTION WIDTH 13.2 % (12.0-15.0); WHITE BLOOD COUNT 9.2 x10^3/uL (4.8-10.8)
[2018-11-22 04:31] LABS: CALCIUM 9.4 mg/dL (8.5-10.3)
[2018-11-22] MEDS ORDERED: diltiaZEM INJ 5 MG/ML VIAL IVP STA (05:40)
[2018-11-22] MEDS ORDERED: PANTOPRAZOLE 40 MG TABLET PO STA (05:41)
[2018-11-22 06:27] VITALS: BP 132/76
== END 2018-11-22 06:42 | disposition home or self-care (01) ==
LOC: ED 03:27
DX: R14.0 Abdominal distension (gaseous) (principal); I48.91 Unspecified atrial fibrillation; Z79.01 Long term (current) use of anticoagulants; I10 Essential (primary) hypertension
CPT/HCPCS: 36415; 80048; 84484; 85025; 93005; 96361; 96374; 96375; 99283; 99284; A9270

== ENCOUNTER 2018-12-04 11:14 | Outpatient (CLI) | payer MEDICARE, OTHER ==
[2018-12-04 18:46] LABS: BASOPHILS # (AUTO) 0.1 10^3/uL (0.0-0.1); BASOPHILS % (AUTO) 0.9 %; EOSINOPHILS # (AUTO) 0.1 10^3/uL (0.0-0.7); EOSINOPHILS % (AUTO) 2.5 %; HGB - HEMOGLOBIN 14.4 g/dL (14.0-18.0); LYMPHOCYTES # (AUTO) 1.6 10^3/uL (1.5-3.5); LYMPHOCYTES % (AUTO) 28.7 %; MEAN CORPUSCULAR HEMOGLOBIN 30.7 pg (27.0-31.0); MEAN CORPUSCULAR HGB CONC 32.8 g/dL (32.0-36.0); MEAN CORPUSCULAR VOLUME 93.6 fL (80.0-94.0); MEAN PLATELET VOLUME 11.2 fL (7.4-11.4); MONOCYTES # (AUTO) 0.7 10^3/uL (0.0-1.0); MONOCYTES % (AUTO) 11.7 %; NEUTROPHILS # (AUTO) 3.2 10^3/uL (1.5-6.6); NEUTROPHILS % (AUTO) 55.8 %; PLT - PLATELET COUNT 298 10^3/uL (130-450); RED BLOOD COUNT 4.69 10^6/uL (4.70-6.10); RED CELL DISTRIBUTION WIDTH 13.9 % (12.0-15.0); WHITE BLOOD COUNT 5.7 x10^3/uL (4.8-10.8)
[2018-12-04 19:00] LABS: ALBUMIN 4.1 g/dL (3.2-5.5); ALBUMIN/GLOBULIN RATIO 1.3 (1.0-2.2); BILIRUBIN,TOTAL 1.1 mg/dL (0.2-1.0); CALCIUM 9.6 mg/dL (8.5-10.3); CREATININE 0.9 mg/dL (0.6-1.2); TOTAL PROTEIN 7.3 g/dL (6.7-8.2)
== END 2018-12-04 11:15 | disposition home or self-care (01) ==
LOC: LAB.WCP 11:14
PROVIDERS: ATTEND Family Medicine
DX: I48.91 Unspecified atrial fibrillation (principal); Z12.5 Encounter for screening for malignant neoplasm of prostate; E78.5 Hyperlipidemia, unspecified; I10 Essential (primary) hypertension
CPT/HCPCS: 36415; G0103; 80053; 84153; 84443; 85025

== ENCOUNTER 2018-12-09 18:25 | Emergency (ER) | payer MEDICARE, OTHER ==
[2018-12-09] MEDS ORDERED: diltiaZEM INJ 5 MG/ML VIAL IVP STA (18:40)
[2018-12-09] MEDS ORDERED: FLECAINIDE 50 MG TABLET PO STA (18:40)
--- NOTE | 2018-12-09 18:50 | ED Physician Documentation ---
PD HPI ABD PAIN - Stated complaint Stated Complaint: HIGH BP - Chief complaint Chief Complaint: Cardiac - History obtained from History obtained from: Patient, Family - History of Present Illness Timing - onset: Today (73-year-old gentleman with recurrent atrial fibrillation presents with feeling bloated today after golfing. This seems to be his recent atrial fibrillation symptom equivalent. He is had recurrent recent visits for this. He had a normal bowel movement earlier in the day. He has no appetite but does not feel nauseous per se there is no abdominal or chest pain and no shortness of breath.) Review of Systems Ten Systems: 10 systems reviewed and negative Constitutional: denies: Fever, Chills Cardiac: denies: Chest pain / pressure, Palpitations Respiratory: denies: Dyspnea, Cough GI: denies: Abdominal Pain, Abdominal Swelling, Nausea, Vomiting, Constipation, Diarrhea : denies: Dysuria, Frequency PD PAST MEDICAL HISTORY - Past Medical History Cardiovascular: Hypertension, High cholesterol, Atrial fibrillation, Arrhythmia, Other Respiratory: None Neuro: None Endocrine/Autoimmune: None GI: None : None HEENT: None Psych: Anxiety Musculoskeletal: None Derm: None - Past Surgical History Past Surgical History: Yes HEENT: Other - Present Medications Home Medications: Ambulatory Orders Medication Instructions Recorded Confirmed Alprazolam [Xanax] 1 mg PO DAILY 11/30/14 11/19/18 Atorvastatin Calcium [Lipitor] 40 mg PO DAILY 11/30/14 11/19/18 Hydrochlorothiazide 50 mg PO DAILY 11/30/14 11/19/18 Lisinopril 10 mg PO DAILY 11/30/14 11/19/18 Apixaban [Eliquis] 5 mg PO DAILY 11/10/17 11/19/18 Flecainide [Tambocar] 300 mg PO ONCE PRN #6 tablet 12/20/17 11/19/18 Ondansetron Odt [Zofran] 4 mg TL Q6H PRN #10 tablet 11/22/18 - Allergies Allergies/Adverse Reactions: Allergies Allergy/AdvReac Type Severity Reaction Status Date / Time Penicillins Allergy passed out Verified 11/22/18 03:43 - Social History Does the pt smoke?: No Smoking Status: Never smoker Does the pt drink ETOH?: No Does the pt have substance abuse?: No - Family History Family history: reports: Non contributory - Immunizations Immunizations are current?: Yes - POLST Patient has POLST: No PD ED PE NORMAL - Vitals Vital signs reviewed: Yes - General General: Alert and oriented X 3, No acute distress - HEENT HEENT: PERRL, EOMI - Neck Neck: Supple, no meningeal sign, No bony TTP - Cardiac Cardiac: Other (Rapid and irregular without murmur) - Respiratory Respiratory: No respiratory distress, Clear bilaterally - Abdomen Abdomen: Normal bowel sounds, Soft, Non tender - Back Back: No CVA TTP, No spinal TTP - Derm Derm: Normal color, Warm and dry - Extremities Extremities: No edema, No calf tenderness / cord - Neuro Neuro: Alert and oriented X 3, Normal speech Results - Vitals Vitals: Vital Signs - 24 hr 12/09/18 12/09/18 12/09/18 18:30 18:33 19:06 Temperature 36.4 C L 36.6 C Heart Rate 145 H 120 H 75 Respiratory 19 20 20 Rate Blood Pressure 162/118 H 172/105 H 132/87 H O2 Saturation 96 97 97 12/09/18 12/09/18 19:22 19:30 Temperature Heart Rate 74 63 Respiratory 17 Rate Blood Pressure 121/71 O2 Saturation 97 Oxygen O2 Source Room air - EKG (time done) 1834 Rate: Rate (enter#) (131) Rhythm: Atrial fibrillation [place]: Normal QRS: Normal Ischemia: Non specific changes (Mild lateral ST depression probably rate related and flat T waves throughout) Computer interpretation: Agree with computer - Labs Labs: Laboratory Tests 12/09/18 12/09/18 12/09/18 18:40 18:40 18:40 WBC 9.7 RBC 4.61 L Hgb 14.4 Hct 42.2 MCV 91.5 MCH 31.2 H MCHC 34.1 RDW 13.5 Plt Count 307 MPV 10.5 Neut # (Auto) 4.7 Lymph # (Auto) 3.7 H [place] # (Auto) 1.0 Eos # (Auto) 0.2 Baso # (Auto) 0.1 Absolute Nucleated RBC 0.00 Nucleated RBC % 0.0 Sodium 135 Potassium 3.5 Chloride 101 Carbon Dioxide 24 Anion Gap 10.0 BUN 20 Creatinine 1.1 Estimated GFR (MDRD) 66 L Glucose 144 H Calcium 9.2 Total Bilirubin 0.4 AST 38 ALT 44 Alkaline Phosphatase 73 Total Creatine Kinase 52 CK-MB (CK-2) 1.3 Troponin I < 0.04 Total Protein 7.2 Albumin 4.1 Globulin 3.1 Albumin/Globulin Ratio 1.3 Lipase 36 PD MEDICAL DECISION MAKING - ED course ED course: 73-year-old gentleman presents with rapid A. fib, his symptom is bloating which recently seems to be sort of his equivalent symptom for noting rapid atrial fibrillation. It improved as soon as he achieve rate control with a single dose of 10 mg of IV diltiazem and he was also administered flecainide here albeit without conversion. He felt better though and he has an appoint with his dress finisher in a few days. Departure - Departure Disposition: 01 Home, Self Care Clinical Impression: Atrial fibrillation with RVR Condition: Good Record reviewed to determine appropriate education?: Yes Plan of Treatment: Followup with Dr Duenas Monday as scheduled. Return for new or recurrent symptoms. Continue current medications. Instructions: Atrial Fibrillation Dc Comments: Followup with Dr Duenas Monday as scheduled. Return for new or recurrent symptoms. Continue current medications.
[2018-12-09 18:53] LABS: BASOPHILS # (AUTO) 0.1 10^3/uL (0.0-0.1); BASOPHILS % (AUTO) 0.7 %; EOSINOPHILS # (AUTO) 0.2 10^3/uL (0.0-0.7); EOSINOPHILS % (AUTO) 2.3 %; HGB - HEMOGLOBIN 14.4 g/dL (14.0-18.0); LYMPHOCYTES # (AUTO) 3.7 10^3/uL (1.5-3.5); LYMPHOCYTES % (AUTO) 37.8 %; MEAN CORPUSCULAR HEMOGLOBIN 31.2 pg (27.0-31.0); MEAN CORPUSCULAR HGB CONC 34.1 g/dL (32.0-36.0); MEAN CORPUSCULAR VOLUME 91.5 fL (80.0-94.0); MEAN PLATELET VOLUME 10.5 fL (7.4-11.4); MONOCYTES % (AUTO) 10.5 %; NEUTROPHILS # (AUTO) 4.7 10^3/uL (1.5-6.6); NEUTROPHILS % (AUTO) 48.4 %; PLT - PLATELET COUNT 307 10^3/uL (130-450); RED BLOOD COUNT 4.61 10^6/uL (4.70-6.10); RED CELL DISTRIBUTION WIDTH 13.5 % (12.0-15.0); WHITE BLOOD COUNT 9.7 x10^3/uL (4.8-10.8)
[2018-12-09 19:00] LABS: ALBUMIN 4.1 g/dL (3.2-5.5); ALBUMIN/GLOBULIN RATIO 1.3 (1.0-2.2); BILIRUBIN,TOTAL 0.4 mg/dL (0.2-1.0); CALCIUM 9.2 mg/dL (8.5-10.3); CREATININE 1.1 mg/dL (0.6-1.2); TOTAL PROTEIN 7.2 g/dL (6.7-8.2)
[2018-12-09 19:06] LABS: TROPONIN I < 0.04 ng/mL (<0.49)
[2018-12-09 19:08] LABS: CREATINE KINASE MB 1.3 ng/mL (0.6-6.3)
[2018-12-09 19:35] VITALS: BP 121/71
== END 2018-12-09 19:54 | disposition home or self-care (01) ==
LOC: ED 18:25
DX: I48.91 Unspecified atrial fibrillation (principal); Z79.01 Long term (current) use of anticoagulants; I10 Essential (primary) hypertension
CPT/HCPCS: 36415; 80053; 82550; 82553; 83690; 84484; 85025; 93005; 96374; 99283; 99285; A9270

== ENCOUNTER 2018-12-19 07:27 | Outpatient (CLI) | payer MEDICARE, OTHER ==
[2018-12-19 12:11] LABS: BASOPHILS # (AUTO) 0.1 10^3/uL (0.0-0.1); BASOPHILS % (AUTO) 1.1 %; EOSINOPHILS # (AUTO) 0.2 10^3/uL (0.0-0.7); EOSINOPHILS % (AUTO) 3.2 %; HGB - HEMOGLOBIN 14.2 g/dL (14.0-18.0); LYMPHOCYTES # (AUTO) 2.3 10^3/uL (1.5-3.5); LYMPHOCYTES % (AUTO) 32.4 %; MEAN CORPUSCULAR HEMOGLOBIN 30.6 pg (27.0-31.0); MEAN CORPUSCULAR HGB CONC 33.4 g/dL (32.0-36.0); MEAN CORPUSCULAR VOLUME 91.6 fL (80.0-94.0); MEAN PLATELET VOLUME 11.3 fL (7.4-11.4); MONOCYTES # (AUTO) 0.8 10^3/uL (0.0-1.0); MONOCYTES % (AUTO) 11.2 %; NEUTROPHILS # (AUTO) 3.7 10^3/uL (1.5-6.6); NEUTROPHILS % (AUTO) 51.8 %; PLT - PLATELET COUNT 319 10^3/uL (130-450); RED BLOOD COUNT 4.64 10^6/uL (4.70-6.10); RED CELL DISTRIBUTION WIDTH 13.4 % (12.0-15.0); WHITE BLOOD COUNT 7.2 x10^3/uL (4.8-10.8)
[2018-12-19 12:15] LABS: ALBUMIN 3.7 g/dL (3.2-5.5); BILIRUBIN,TOTAL 0.7 mg/dL (0.2-1.0); CALCIUM 9.5 mg/dL (8.5-10.3); CREATININE 1.1 mg/dL (0.6-1.2); MAGNESIUM 2.2 mg/dL (1.7-2.8); TOTAL PROTEIN 7.3 g/dL (6.7-8.2)
== END 2018-12-19 07:28 | disposition home or self-care (01) ==
LOC: LAB.WCP 07:27
PROVIDERS: ATTEND Family Medicine
DX: I10 Essential (primary) hypertension (principal); E78.5 Hyperlipidemia, unspecified; F41.9 Anxiety disorder, unspecified
CPT/HCPCS: 36415; 80053; 83735; 84443; 85025

== ENCOUNTER 2019-01-17 18:13 | Outpatient (CLI) | payer MEDICARE, OTHER | END 2019-01-17 18:14 | disposition critical access hospital (66) | LOC: EMS 18:13 | PROVIDERS: ATTEND Surgery | DX: R00.2 Palpitations (principal); K30 Functional dyspepsia | CPT/HCPCS: A0425; A0429 ==

== ENCOUNTER 2019-01-17 18:33 | Emergency (ER) | payer MEDICARE, OTHER ==
[2019-01-17] MEDS ORDERED: diltiaZEM INJ 5 MG/ML VIAL IVP STA (19:01)
[2019-01-17] MEDS ORDERED: SIMETHICONE 40 MG/0.6 ML 30 ML BOTTLE PO STA (19:02)
--- NOTE | 2019-01-17 19:06 | ED Physician Documentation ---
PD HPI CHEST PAIN - Stated complaint Stated Complaint: PALPITATIONS - Chief complaint Chief Complaint: Cardiac - History obtained from History obtained from: Patient - History of Present Illness Timing - onset: Today (This is a 73-year-old gentleman with paroxysmal atrial fibrillation. He had an episode in early December and then back into it. He was electrically cardioverted and was without atrial fibrillation for may be a week but then went back into it and saw his linen controller who started flecainide twice daily. He is been in atrial fibrillation now for two thirds of a month, but he feels fine as long as his rate controlled and he says his usual rate is between 60 and 80. For reasons unclear over the last few hours his rate has gone up and he feels weak and bloated which is his usual symptoms when he gets symptomatic atrial fibrillation. He denies chest pain, trouble breathing, or pedal edema.He is anticoagulated.) Review of Systems Ten Systems: 10 systems reviewed and negative Constitutional: reports: Fatigue. denies: Fever, Chills Eyes: reports: Reviewed and negative Ears: reports: Reviewed and negative Throat: reports: Reviewed and negative PD PAST MEDICAL HISTORY - Past Medical History Cardiovascular: Hypertension, High cholesterol, Atrial fibrillation, Arrhythmia, Other Respiratory: None Neuro: None Endocrine/Autoimmune: None GI: None : None HEENT: None Psych: Anxiety Musculoskeletal: None Derm: None - Past Surgical History Past Surgical History: Yes HEENT: Other - Present Medications Home Medications: Ambulatory Orders Medication Instructions Recorded Confirmed Alprazolam [Xanax] 1 mg PO DAILY 11/30/14 11/19/18 Atorvastatin Calcium [Lipitor] 40 mg PO DAILY 11/30/14 11/19/18 Hydrochlorothiazide 50 mg PO DAILY 11/30/14 11/19/18 Lisinopril 10 mg PO DAILY 11/30/14 11/19/18 Apixaban [Eliquis] 5 mg PO DAILY 11/10/17 11/19/18 Flecainide [Tambocar] 300 mg PO ONCE PRN #6 tablet 12/20/17 11/19/18 Ondansetron Odt [Zofran] 4 mg TL Q6H PRN #10 tablet 11/22/18 - Allergies Allergies/Adverse Reactions: Allergies Allergy/AdvReac Type Severity Reaction Status Date / Time Penicillins Allergy passed out Verified 11/22/18 03:43 - Social History Does the pt smoke?: No Smoking Status: Never smoker Does the pt drink ETOH?: No Does the pt have substance abuse?: No - Family History Family history: reports: Non contributory - Immunizations Immunizations are current?: Yes - POLST Patient has POLST: No PD ED PE NORMAL - Vitals Vital signs reviewed: Yes - General General: Alert and oriented X 3, No acute distress, Well developed/nourished - HEENT HEENT: PERRL, EOMI - Neck Neck: Supple, no meningeal sign, No bony TTP - Cardiac Cardiac: Other (irregular) - Respiratory Respiratory: No respiratory distress, Clear bilaterally - Abdomen Abdomen: Non tender - Back Back: No CVA TTP, No spinal TTP - Derm Derm: Normal color, Warm and dry - Extremities Extremities: No edema, No calf tenderness / cord - Neuro Neuro: Alert and oriented X 3, Normal speech Results - Vitals Vitals: Vital Signs - 24 hr 01/17/19 01/17/19 01/17/19 18:45 19:44 20:06 Temperature 98.2 C H Heart Rate 105 H 79 80 Respiratory 17 17 18 Rate Blood Pressure 134/91 H 114/71 100/78 O2 Saturation 95 94 95 Oxygen O2 Source Room air - EKG (time done) 1839 Rate: Rate (enter#) (107) Rhythm: Atrial fibrillation [place]: Normal Ischemia: Non specific changes Computer interpretation: Agree with computer - Labs Labs: Laboratory Tests 01/17/19 01/17/19 19:09 19:09 WBC 10.2 RBC 4.52 L Hgb 14.3 Hct 41.0 L MCV 90.7 MCH 31.6 H MCHC 34.9 RDW 13.2 Plt Count 238 MPV 10.3 Neut # (Auto) 6.4 Lymph # (Auto) 2.1 [place] # (Auto) 1.0 Eos # (Auto) 0.6 Baso # (Auto) 0.1 Absolute Nucleated RBC 0.00 Nucleated RBC % 0.0 Sodium 138 Potassium 3.6 Chloride 103 Carbon Dioxide 22 Anion Gap 13.0 BUN 25 H Creatinine 1.1 Estimated GFR (MDRD) 66 L Glucose 109 H Calcium 9.4 Total Bilirubin 0.7 AST 29 ALT 32 Alkaline Phosphatase 64 Total Protein 6.9 Albumin 3.9 Globulin 3.0 Albumin/Globulin Ratio 1.3 Lipase 27 PD MEDICAL DECISION MAKING - ED course ED course: This is a 73-year-old gentleman with symptomatic atrial fibrillation, he has been in atrial fibrillation more than not over the last month or 2, and he seems to be sensitive to uncontrolled rate. After single dose of diltiazem he was still in atrial fibrillation but his symptoms had resolved. Departure - Departure Disposition: 01 Home, Self Care Clinical Impression: Atrial fibrillation with RVR Condition: Good Record reviewed to determine appropriate education?: Yes Instructions: Atrial Fibrillation Dc Comments: Continue current medications. Follow-up with the hostel parent next week as scheduled. Return for new or worsening symptoms.
[2019-01-17 19:14] LABS: BASOPHILS # (AUTO) 0.1 10^3/uL (0.0-0.1); BASOPHILS % (AUTO) 0.5 %; EOSINOPHILS # (AUTO) 0.6 10^3/uL (0.0-0.7); EOSINOPHILS % (AUTO) 5.5 %; HGB - HEMOGLOBIN 14.3 g/dL (14.0-18.0); LYMPHOCYTES # (AUTO) 2.1 10^3/uL (1.5-3.5); LYMPHOCYTES % (AUTO) 20.7 %; MEAN CORPUSCULAR HEMOGLOBIN 31.6 pg (27.0-31.0); MEAN CORPUSCULAR HGB CONC 34.9 g/dL (32.0-36.0); MEAN CORPUSCULAR VOLUME 90.7 fL (80.0-94.0); MEAN PLATELET VOLUME 10.3 fL (7.4-11.4); MONOCYTES % (AUTO) 10.2 %; NEUTROPHILS # (AUTO) 6.4 10^3/uL (1.5-6.6); NEUTROPHILS % (AUTO) 62.8 %; PLT - PLATELET COUNT 238 10^3/uL (130-450); RED BLOOD COUNT 4.52 10^6/uL (4.70-6.10); RED CELL DISTRIBUTION WIDTH 13.2 % (12.0-15.0); WHITE BLOOD COUNT 10.2 x10^3/uL (4.8-10.8)
[2019-01-17 19:26] LABS: ALBUMIN 3.9 g/dL (3.2-5.5); ALBUMIN/GLOBULIN RATIO 1.3 (1.0-2.2); BILIRUBIN,TOTAL 0.7 mg/dL (0.2-1.0); CALCIUM 9.4 mg/dL (8.5-10.3); CREATININE 1.1 mg/dL (0.6-1.2); TOTAL PROTEIN 6.9 g/dL (6.7-8.2)
[2019-01-17] MEDS ORDERED: MAG HYDROX/AL HYDROX/SIMETH 30 ML UDC PO STA (19:45)
[2019-01-17 20:59] VITALS: BP 129/81
== END 2019-01-17 21:11 | disposition home or self-care (01) ==
LOC: EDUNIT# → ED 18:33
DX: I48.91 Unspecified atrial fibrillation (principal); I10 Essential (primary) hypertension; Z79.01 Long term (current) use of anticoagulants
CPT/HCPCS: 36415; 80053; 83690; 85025; 93005; 96374; 99283; 99284; A9270

== ENCOUNTER 2019-01-24 08:00 | Outpatient (CLI) | payer MEDICARE, OTHER ==
[2019-01-24 18:55] LABS: ALBUMIN 3.8 g/dL (3.2-5.5); ALBUMIN/GLOBULIN RATIO 1.3 (1.0-2.2); BILIRUBIN,TOTAL 0.4 mg/dL (0.2-1.0); CALCIUM 9.3 mg/dL (8.5-10.3); CREATININE 1.2 mg/dL (0.6-1.2); TOTAL PROTEIN 6.8 g/dL (6.7-8.2)
== END 2019-01-24 23:59 | disposition home or self-care (01) ==
LOC: LAB.WCP 08:00
PROVIDERS: ATTEND Internal Medicine Cardiovascular Disease
DX: I48.0 Paroxysmal atrial fibrillation (principal); I34.0 Nonrheumatic mitral (valve) insufficiency; I10 Essential (primary) hypertension
CPT/HCPCS: 36415; 80053

== ENCOUNTER 2019-02-09 15:57 | Emergency (ER) | payer MEDICARE, OTHER ==
[2019-02-09] MEDS ORDERED: LORazepam 0.5 MG TABLET PO STA (16:30)
--- NOTE | 2019-02-09 16:32 | ED Physician Documentation ---
PD HPI ABD PAIN - Stated complaint Stated Complaint: NAUSEA/WEAKNESS - Chief complaint Chief Complaint: Abd Pain - History obtained from History obtained from: Patient - History of Present Illness Timing - onset: Today (4 days ago he had an ablation procedure. Since yesterday has had some stomach upset and twitching with nausea and today has had 3 episodes of diarrhea. They put him on a PPI perioperatively so he was advised to come here to rule out C. difficile. No sick contacts or fevers. No recent travel.) Review of Systems Ten Systems: 10 systems reviewed and negative Constitutional: denies: Fever, Chills Cardiac: denies: Chest pain / pressure, Palpitations Respiratory: denies: Dyspnea, Cough GI: reports: Nausea, Diarrhea. denies: Abdominal Pain, Vomiting PD PAST MEDICAL HISTORY - Past Medical History Cardiovascular: Hypertension, High cholesterol, Atrial fibrillation, Arrhythmia, Other Respiratory: None Neuro: None Endocrine/Autoimmune: None GI: None : None HEENT: None Psych: Anxiety Musculoskeletal: None Derm: None - Past Surgical History Past Surgical History: Yes Cardiovascular: Other HEENT: Other - Present Medications Home Medications: Ambulatory Orders Medication Instructions Recorded Confirmed Alprazolam [Xanax] 1 mg PO DAILY 11/30/14 11/19/18 Atorvastatin Calcium [Lipitor] 40 mg PO DAILY 11/30/14 11/19/18 RX: Hydrochlorothiazide 50 mg PO DAILY 11/30/14 11/19/18 RX: Lisinopril 10 mg PO DAILY 11/30/14 11/19/18 Apixaban [Eliquis] 5 mg PO DAILY 11/10/17 11/19/18 RX: Flecainide [Tambocar] 300 mg PO ONCE PRN #6 tablet 12/20/17 11/19/18 Ondansetron Odt [Zofran] 4 mg TL Q6H PRN #10 tablet 11/22/18 - Allergies Allergies/Adverse Reactions: Allergies Allergy/AdvReac Type Severity Reaction Status Date / Time Penicillins Allergy passed out Verified 02/09/19 16:04 - Social History Does the pt smoke?: No Smoking Status: Never smoker Does the pt drink ETOH?: No Does the pt have substance abuse?: No - Immunizations Immunizations are current?: Yes - POLST Patient has POLST: No PD ED PE NORMAL - Vitals Vital signs reviewed: Yes - General General: Alert and oriented X 3, No acute distress - Cardiac Cardiac: RRR - Abdomen Abdomen: Soft, Non tender - Neuro Neuro: Alert and oriented X 3, Normal speech Results - Vitals Vitals: Vital Signs - 24 hr 02/09/19 02/09/19 02/09/19 16:04 16:12 17:25 Temperature 36.6 C 36.6 C Heart Rate 83 83 77 Respiratory 16 16 16 Rate Blood Pressure 153/83 H 153/83 H 137/75 H O2 Saturation 93 93 95 Oxygen O2 Source Room air - Labs Labs: Microbiology 02/09/19 17:14 Campylobacter Antigen Assay - Final Stool PD MEDICAL DECISION MAKING - ED course ED course: 73-year-old gentleman with few episodes of diarrhea today referred into test for C. difficile. Historically the presentation is inconsistent with C. difficile but a test was sent and we will call him if positive. Departure - Departure Disposition: 01 Home, Self Care Clinical Impression: Diarrhea Condition: Good Record reviewed to determine appropriate education?: Yes Instructions: ED Gastroenteritis Report Pend Comments: If a infectious cause of your diarrhea is found such as Salmonella, E. coli, or C. difficile we will call you. Return if worse or if not better in 2 days time. Discharge Date/Time: 02/09/19 17:43
[2019-02-09 17:25] VITALS: BP 137/75
== END 2019-02-09 17:43 | disposition home or self-care (01) ==
LOC: ED 15:57
DX: R19.7 Diarrhea, unspecified (principal); R11.0 Nausea; I48.91 Unspecified atrial fibrillation; Z79.01 Long term (current) use of anticoagulants; I10 Essential (primary) hypertension
CPT/HCPCS: 87045; 87046; 87493; 99282; 99283; A9270

== ENCOUNTER 2019-02-22 08:00 | Outpatient (CLI) | payer MEDICARE, OTHER ==
[2019-02-22 18:43] LABS: BASOPHILS # (AUTO) 0.1 10^3/uL (0.0-0.1); EOSINOPHILS # (AUTO) 0.2 10^3/uL (0.0-0.7); EOSINOPHILS % (AUTO) 2.4 %; LYMPHOCYTES # (AUTO) 2.7 10^3/uL (1.5-3.5); LYMPHOCYTES % (AUTO) 32.1 %; MEAN CORPUSCULAR HEMOGLOBIN 30.2 pg (27.0-31.0); MEAN CORPUSCULAR HGB CONC 32.4 g/dL (32.0-36.0); MEAN CORPUSCULAR VOLUME 93.1 fL (80.0-94.0); MONOCYTES # (AUTO) 0.9 10^3/uL (0.0-1.0); MONOCYTES % (AUTO) 10.2 %; NEUTROPHILS # (AUTO) 4.5 10^3/uL (1.5-6.6); NEUTROPHILS % (AUTO) 53.8 %; PLT - PLATELET COUNT 428 10^3/uL (130-450); RED BLOOD COUNT 4.64 10^6/uL (4.70-6.10); RED CELL DISTRIBUTION WIDTH 14.2 % (12.0-15.0); WHITE BLOOD COUNT 8.4 x10^3/uL (4.8-10.8)
[2019-02-22 19:46] LABS: ALBUMIN 3.7 g/dL (3.2-5.5); ALBUMIN/GLOBULIN RATIO 1.1 (1.0-2.2); BILIRUBIN,TOTAL 0.5 mg/dL (0.2-1.0); CALCIUM 9.1 mg/dL (8.5-10.3); CREATININE 1.2 mg/dL (0.6-1.2)
== END 2019-02-22 08:01 | disposition home or self-care (01) ==
LOC: LAB.WCP 08:00
PROVIDERS: ATTEND Family Medicine
DX: I95.9 Hypotension, unspecified (principal); I10 Essential (primary) hypertension; E78.9 Disorder of lipoprotein metabolism, unspecified
CPT/HCPCS: 36415; 80053; 84443; 85025

== ENCOUNTER 2019-02-22 19:34 | Outpatient (CLI) | payer MEDICARE, OTHER | END 2019-02-22 19:35 | disposition critical access hospital (66) | LOC: EMS 19:34 | PROVIDERS: ATTEND Surgery | DX: R00.0 Tachycardia, unspecified (principal) | CPT/HCPCS: A0425; A0427 ==

== ENCOUNTER 2019-02-22 19:54 | Emergency (ER) | payer MEDICARE, OTHER ==
[2019-02-22] MEDS ORDERED: METOPROLOL SUCCINATE 25 MG TABLET PO STA (20:10)
[2019-02-22] MEDS ORDERED: APIXABAN 5 MG TABLET PO STA (20:10)
[2019-02-22] MEDS ORDERED: FLECAINIDE 50 MG TABLET PO STA (20:12)
--- NOTE | 2019-02-22 20:14 | ED Physician Documentation ---
History of Present Illness - Stated complaint Stated Complaint: AFIB/RHR - Chief complaint Chief Complaint: Cardiac - History obtained from History obtained from: Patient, Family - History of Present Illness Timing: How many hours ago (1) Pain level max: 0 Pain level now: 0 - Additonal information Additional information: 73-year-old male with a history of atrial fibrillation. States he felt his heart racing earlier tonight. He states that this started approximately 7 PM. He had an ablation approximately 3 weeks ago. Is followed at [facility] by Dr. Gomez. He is due to take his flecainide and metoprolol at 8 PM. No chest pain. No shortness of breath. Nothing makes it better or worse. S tates his highest heart rate with EMS was 150. Review of Systems Nose: denies: Rhinorrhea / runny nose Throat: denies: Sore throat Cardiac: reports: Palpitations. denies: Chest pain / pressure, Calf pain Respiratory: denies: Dyspnea, Cough, Wheezing GI: denies: Nausea, Vomiting Skin: denies: Rash PD PAST MEDICAL HISTORY - Past Medical History Past Medical History: Yes Cardiovascular: Hypertension, High cholesterol, Atrial fibrillation, Arrhythmia, Other Respiratory: None Neuro: None Endocrine/Autoimmune: None GI: None : None HEENT: None Psych: Anxiety Musculoskeletal: None Derm: None - Past Surgical History Past Surgical History: Yes Cardiovascular: Other HEENT: Other - Present Medications Home Medications: Ambulatory Orders Medication Instructions Recorded Confirmed Alprazolam [Xanax] 1 mg PO DAILY 11/30/14 02/22/19 Atorvastatin Calcium [Lipitor] 40 mg PO DAILY 11/30/14 02/22/19 Hydrochlorothiazide 12.5 mg PO DAILY 11/30/14 02/22/19 Lisinopril 10 mg PO DAILY 11/30/14 02/22/19 Apixaban [Eliquis] 5 mg PO DAILY 11/10/17 02/22/19 Flecainide [Tambocar] 50 mg PO BID 02/22/19 02/22/19 Metoprolol Succinate [Toprol Xl] 25 mg PO BID 02/22/19 02/22/19 Pantoprazole [Protonix] 40 mg PO DAILY 02/22/19 02/22/19 - Allergies Allergies/Adverse Reactions: Allergies Allergy/AdvReac Type Severity Reaction Status Date / Time Penicillins Allergy passed out Verified 02/22/19 20:01 - Social History Does the pt smoke?: No Smoking Status: Never smoker Does the pt drink ETOH?: No Does the pt have substance abuse?: No - Immunizations Immunizations are current?: Yes - POLST Patient has POLST: No PD ED PE NORMAL - Vitals Vital signs reviewed: Yes - General General: Alert and oriented X 3, No acute distress, Well developed/nourished - HEENT HEENT: Moist mucous membranes - Neck Neck: Supple, no meningeal sign - Cardiac Cardiac: Other (Irregularly irregular) - Respiratory Respiratory: No respiratory distress, Clear bilaterally - Abdomen Abdomen: Soft, Non tender, Non distended - Derm Derm: Warm and dry - Extremities Extremities: No edema - Neuro Neuro: Alert and oriented X 3 - Psych Psych: Normal mood, Normal affect Results - Vitals Vitals: Vital Signs - 24 hr 02/22/19 02/22/19 02/22/19 19:55 20:44 21:05 Temperature 36.4 C L 36.5 C Heart Rate 107 H 83 96 Respiratory 18 16 17 Rate Blood Pressure 117/71 117/79 119/83 H O2 Saturation 100 98 96 Oxygen O2 Source Room air - EKG (time done) 1955 Rate: Rate (enter#) (105) Rhythm: Atrial fibrillation [place]: Normal QRS: Normal Ischemia: Non specific changes - Labs Labs: Laboratory Tests 02/22/19 02/22/19 20:19 20:19 WBC 8.0 RBC 4.44 L Hgb 13.7 L Hct 40.9 L MCV 92.1 MCH 30.9 MCHC 33.5 RDW 13.8 Plt Count 379 MPV 10.3 Neut # (Auto) 5.0 Lymph # (Auto) 1.9 [place] # (Auto) 0.8 Eos # (Auto) 0.2 Baso # (Auto) 0.1 Absolute Nucleated RBC 0.00 Nucleated RBC % 0.0 Sodium 138 Potassium 4.2 Chloride 100 L Carbon Dioxide 26 Anion Gap 12.0 BUN 29 H Creatinine 1.6 H Estimated GFR (MDRD) 43 L Glucose 113 H Calcium 9.3 Total Bilirubin 0.5 AST 31 ALT 36 Alkaline Phosphatase 66 Total Protein 6.9 Albumin 3.6 Globulin 3.3 Albumin/Globulin Ratio 1.1 Lipase 35 PD MEDICAL DECISION MAKING - ED course Complexity details: reviewed results, re-evaluated patient, considered differential, d/w patient, d/w family ED course: 73-year-old male with a history of atrial fibrillation. In A. fib with RVR tonight. He was given his normal medications, flecainide, Eliquis and metoprolol. Heart rate decreased to the 70s and 80s. Patient is asymptomatic. We will continue his current medications and follow-up with his doctor. Patient counseled regarding signs and symptoms for which I believe and urgent re-evaluation would be necessary. Patient with good understanding of and agreement to plan and is comfortable going home at this time This document was made in part using voice recognition software. While efforts are made to proofread this document, sound alike and grammatical errors may occur. Departure - Departure Disposition: 01 Home, Self Care Clinical Impression: Atrial fibrillation with RVR Condition: Good Instructions: ED Afib Follow-Up: Gregorio Mendoza MD [Primary Care Provider] - As Needed Comments: Continue your medications at home. Return if you worsen. Follow-up with your doctor for further care. Discharge Date/Time: 02/22/19 21:15
[2019-02-22 20:34] LABS: BASOPHILS # (AUTO) 0.1 10^3/uL (0.0-0.1); EOSINOPHILS # (AUTO) 0.2 10^3/uL (0.0-0.7); EOSINOPHILS % (AUTO) 1.9 %; HGB - HEMOGLOBIN 13.7 g/dL (14.0-18.0); LYMPHOCYTES # (AUTO) 1.9 10^3/uL (1.5-3.5); LYMPHOCYTES % (AUTO) 23.5 %; MEAN CORPUSCULAR HEMOGLOBIN 30.9 pg (27.0-31.0); MEAN CORPUSCULAR HGB CONC 33.5 g/dL (32.0-36.0); MEAN CORPUSCULAR VOLUME 92.1 fL (80.0-94.0); MEAN PLATELET VOLUME 10.3 fL (7.4-11.4); MONOCYTES # (AUTO) 0.8 10^3/uL (0.0-1.0); MONOCYTES % (AUTO) 10.1 %; PLT - PLATELET COUNT 379 10^3/uL (130-450); RED BLOOD COUNT 4.44 10^6/uL (4.70-6.10); RED CELL DISTRIBUTION WIDTH 13.8 % (12.0-15.0)
[2019-02-22 20:46] LABS: ALBUMIN 3.6 g/dL (3.2-5.5); ALBUMIN/GLOBULIN RATIO 1.1 (1.0-2.2); BILIRUBIN,TOTAL 0.5 mg/dL (0.2-1.0); CALCIUM 9.3 mg/dL (8.5-10.3); CREATININE 1.6 mg/dL (0.6-1.2); TOTAL PROTEIN 6.9 g/dL (6.7-8.2)
[2019-02-22 21:11] VITALS: BP 119/83
== END 2019-02-22 21:15 | disposition home or self-care (01) ==
LOC: EDUNIT# → ED 19:54
DX: I48.91 Unspecified atrial fibrillation (principal); Z79.01 Long term (current) use of anticoagulants; I10 Essential (primary) hypertension; I95.9 Hypotension, unspecified; E78.9 Disorder of lipoprotein metabolism, unspecified
CPT/HCPCS: 36415; 83690; 93005; 99283; 99284; A9270; 80053; 84443; 85025

== ENCOUNTER 2019-03-08 18:11 | Outpatient (CLI) | payer MEDICARE, OTHER | END 2019-03-08 18:12 | disposition EMS.NT | LOC: EMS 18:11 | PROVIDERS: ATTEND Surgery | DX: R61 Generalized hyperhidrosis (principal) ==

== ENCOUNTER 2019-05-10 19:22 | Emergency (ER) | payer MEDICARE, OTHER ==
[2019-05-10 21:14] LABS: BASOPHILS # (AUTO) 0.1 10^3/uL (0.0-0.1); EOSINOPHILS # (AUTO) 0.1 10^3/uL (0.0-0.7); EOSINOPHILS % (AUTO) 1.3 %; HGB - HEMOGLOBIN 15.2 g/dL (14.0-18.0); LYMPHOCYTES # (AUTO) 2.1 10^3/uL (1.5-3.5); LYMPHOCYTES % (AUTO) 34.4 %; MEAN CORPUSCULAR HEMOGLOBIN 30.2 pg (27.0-31.0); MEAN CORPUSCULAR HGB CONC 32.7 g/dL (32.0-36.0); MEAN CORPUSCULAR VOLUME 92.4 fL (80.0-94.0); MEAN PLATELET VOLUME 10.4 fL (7.4-11.4); MONOCYTES # (AUTO) 0.8 10^3/uL (0.0-1.0); MONOCYTES % (AUTO) 13.3 %; NEUTROPHILS % (AUTO) 49.7 %; PLT - PLATELET COUNT 303 10^3/uL (130-450); RED BLOOD COUNT 5.03 10^6/uL (4.70-6.10); RED CELL DISTRIBUTION WIDTH 13.1 % (12.0-15.0); WHITE BLOOD COUNT 6.1 x10^3/uL (4.8-10.8)
[2019-05-10 21:17] LABS: BILIRUBIN,URINE NEGATIVE (NEGATIVE); GLUCOSE, URINE (UA) NEGATIVE (NEGATIVE); KETONES,URINE (UA) NEGATIVE (NEGATIVE); LEUKOCYTE ESTERASE, URINE NEGATIVE (NEGATIVE); NITRITE,URINE NEGATIVE (NEGATIVE); OCCULT BLOOD,URINE NEGATIVE (NEGATIVE); PROTEIN,URINE NEGATIVE (NEGATIVE); UROBILINOGEN,URINE 0.2 (NORMAL) E.U./dL (NORMAL)
[2019-05-10 21:26] LABS: CLARITY,URINE CLEAR (CLEAR)
--- NOTE | 2019-05-10 21:26 | ED Physician Documentation ---
PD HPI CHEST PAIN - Stated complaint Stated Complaint: HIGH BP/EXCESSIVE SWEATING - Chief complaint Chief Complaint: Cardiac - History obtained from History obtained from: Patient (73-year-old gentleman with history of atrial fibrillation presents with excessive sweating in the armpits today. Is not associated with fatigue, chest pain, shortness of breath, nausea, pedal edema. He does note that he checked his blood pressure several times and it was always high though. No back pain. He was taken off both of his lisinopril and hydrochlorothiazide recently and his flecainide was increased. He also had a successful atrial ablation lately.) Review of Systems Constitutional: denies: Fever, Chills, Fatigue Nose: denies: Rhinorrhea / runny nose Cardiac: denies: Chest pain / pressure, Palpitations Respiratory: denies: Dyspnea, Cough GI: denies: Abdominal Pain PD PAST MEDICAL HISTORY - Past Medical History Past Medical History: Yes Cardiovascular: Hypertension, High cholesterol, Atrial fibrillation, Arrhythmia, Other Respiratory: None Neuro: None Endocrine/Autoimmune: None GI: None : None HEENT: None Psych: Anxiety Musculoskeletal: None Derm: None - Past Surgical History Past Surgical History: Yes Cardiovascular: Other HEENT: Other - Present Medications Home Medications: Ambulatory Orders Medication Instructions Recorded Confirmed Alprazolam [Xanax] 1 mg PO DAILY PRN 11/30/14 05/10/19 Atorvastatin Calcium [Lipitor] 40 mg PO DAILY 11/30/14 05/10/19 Hydrochlorothiazide 12.5 mg PO DAILY 11/30/14 05/10/19 Apixaban [Eliquis] 5 mg PO DAILY 11/10/17 05/10/19 Flecainide [Tambocar] 100 mg PO BID 02/22/19 05/10/19 Metoprolol Succinate [Toprol Xl] 25 mg PO BID 02/22/19 05/10/19 - Allergies Allergies/Adverse Reactions: Allergies Allergy/AdvReac Type Severity Reaction Status Date / Time Penicillins Allergy passed out Verified 05/10/19 20:01 - Social History Does the pt smoke?: No Smoking Status: Never smoker Does the pt drink ETOH?: No Does the pt have substance abuse?: No - Immunizations Immunizations are current?: Yes - POLST Patient has POLST: No PD ED PE NORMAL - Vitals Vital signs reviewed: Yes - General General: Alert and oriented X 3, Other (He is not diaphoretic on exam) - HEENT HEENT: PERRL, EOMI - Neck Neck: Supple, no meningeal sign, No bony TTP - Cardiac Cardiac: RRR, No murmur - Respiratory Respiratory: No respiratory distress, Clear bilaterally - Abdomen Abdomen: Non tender - Extremities Extremities: No edema, No calf tenderness / cord - Neuro Neuro: Alert and oriented X 3, Normal speech Results - Vitals Vitals: Vital Signs - 24 hr 05/10/19 05/10/19 05/10/19 20:01 20:55 21:10 Temperature 36.5 C Heart Rate 61 63 55 L Respiratory 16 16 18 Rate Blood Pressure 182/82 H 180/113 H 171/79 H O2 Saturation 96 97 97 Oxygen O2 Source Room air - EKG (time done) 2010 Rate: Rate (enter#) (67) Rhythm: NSR [place]: Normal Intervals: Prolonged [place] QRS: Normal Ischemia: Non specific changes (Some lateral and septal inferior to T waves which are chronic compared to old EKGs.). No: ST elevation c/w ischemia, ST depression Compare to prior EKG: Unchanged from prior EKG Computer interpretation: Agree with computer - Labs Labs: Laboratory Tests 05/10/19 05/10/19 05/10/19 20:50 20:55 20:55 WBC 6.1 RBC 5.03 Hgb 15.2 Hct 46.5 MCV 92.4 MCH 30.2 MCHC 32.7 RDW 13.1 Plt Count 303 MPV 10.4 Neut # (Auto) 3.0 Lymph # (Auto) 2.1 [place] # (Auto) 0.8 Eos # (Auto) 0.1 Baso # (Auto) 0.1 Absolute Nucleated RBC 0.00 Nucleated RBC % 0.0 Sodium 140 Potassium 4.3 Chloride 102 Carbon Dioxide 28 Anion Gap 10.0 BUN 17 Creatinine 1.0 Estimated GFR (MDRD) 73 L Glucose 114 H Calcium 9.6 Total Bilirubin 0.5 AST 40 ALT 47 Alkaline Phosphatase 70 Troponin I High Sens Total Protein 7.9 Albumin 4.3 Globulin 3.6 Albumin/Globulin Ratio 1.2 Lipase 37 Urine Color YELLOW Urine Clarity CLEAR Urine pH 6.0 Ur Specific [place] <=1.005 Urine Protein NEGATIVE Urine Glucose (UA) NEGATIVE Urine Ketones NEGATIVE Urine Occult Blood NEGATIVE Urine Nitrite NEGATIVE Urine Bilirubin NEGATIVE Urine Urobilinogen 0.2 (NORMAL) Ur Leukocyte Esterase NEGATIVE Ur Microscopic Review NOT INDICATED Urine Culture Comments NOT INDICATED 05/10/19 20:55 WBC RBC Hgb Hct MCV MCH MCHC RDW Plt Count MPV Neut # (Auto) Lymph # (Auto) [place] # (Auto) Eos # (Auto) Baso # (Auto) Absolute Nucleated RBC Nucleated RBC % Sodium Potassium Chloride Carbon Dioxide Anion Gap BUN Creatinine Estimated GFR (MDRD) Glucose Calcium Total Bilirubin AST ALT Alkaline Phosphatase Troponin I High Sens < 2.3 L Total Protein Albumin Globulin Albumin/Globulin Ratio Lipase Urine Color Urine Clarity Urine pH Ur Specific [place] Urine Protein Urine Glucose (UA) Urine Ketones Urine Occult Blood Urine Nitrite Urine Bilirubin Urine Urobilinogen Ur Leukocyte Esterase Ur Microscopic Review Urine Culture Comments PD MEDICAL DECISION MAKING - ED course ED course: 73-year-old gentleman with sweating today, although he is not sweaty here. His EKG is unchanged from prior and his labs are reassuring. Blood pressures been high since stopping to blood pressure medications at once. He will restart his lisinopril at 10 mg a day. He has some at home. Departure - Departure Disposition: Home, Self Care Clinical Impression: Diaphoresis Hypertension Qualifiers: Hypertension type: essential hypertension Qualified Code(s): I10 - Essential (primary) hypertension Condition: Good Instructions: Hyperhidrosis Comments: Your lab work and cardiac work-up today look excellent. Return for new or worsening symptoms. As discussed your blood pressure is been on the high side and I would restart just the Lisinopril at 10 mg a day which you have at home. Follow-up with your primary care physician, next available appointment.
[2019-05-10 21:31] LABS: ALBUMIN 4.3 g/dL (3.2-5.5); ALBUMIN/GLOBULIN RATIO 1.2 (1.0-2.2); BILIRUBIN,TOTAL 0.5 mg/dL (0.2-1.0); CALCIUM 9.6 mg/dL (8.5-10.3); TOTAL PROTEIN 7.9 g/dL (6.7-8.2)
[2019-05-10 22:05] VITALS: BP 160/84
== END 2019-05-10 22:13 | disposition home or self-care (01) ==
LOC: ED 19:22
DX: R61 Generalized hyperhidrosis (principal); I10 Essential (primary) hypertension
CPT/HCPCS: 36415; 80053; 81001; 81003; 83690; 84484; 85025; 87086; 93005; 99283; 99284

== ENCOUNTER 2019-07-31 15:53 | Outpatient (CLI) | payer MEDICARE, OTHER | END 2019-07-31 15:54 | disposition EMS.NT | LOC: EMS 15:53 | PROVIDERS: ATTEND Surgery | DX: R06.02 Shortness of breath (principal) ==

== ENCOUNTER 2019-07-31 16:28 | Emergency (ER) | payer MEDICARE, OTHER ==
[2019-07-31 17:36] LABS: MAGNESIUM 2.2 mg/dL (1.7-2.8)
--- NOTE | 2019-07-31 17:54 | ED Physician Documentation ---
PD HPI CHEST PAIN - Stated complaint Stated Complaint: TIGHTNESS IN CHEST, SOA - Chief complaint Chief Complaint: Cardiac - History obtained from History obtained from: Patient - History of Present Illness Timing - onset: How many hours ago (1-2) Timing - onset during: Light activity Timing - duration: Minutes (He was just working on a smoke detector at home with light activity and nothing exertional and felt some discomfort in his chest. He had had a prior atrial fibrillation episodes with ablation and cardioversions. He did not feel that his heart rate was going particularly fast but he did feel pressured and unusual. He then took his blood pressure noted to be a bit elevated at 160 systolic. He went to the EMS quarters to have his blood pressure and heart rhythm checked. He appeared in a sinus rhythm. His EKG however showed some T wave inversions and EMS suggested he come over to the ER for evaluation. He is feeling better on route to here and is without any symptoms on arrival.) Timing - details: Abrupt onset, Still present Pain level max: 3 Pain level now: 1 Quality: Tightness, Aching Location: Left chest Worsened by: Movement. No: Exertion, Inspiration Associated symptoms: No: Diaphoresis, Feeling faint / dizzy, General Weakness, Palpitations Recently seen: Not recently seen Review of Systems Constitutional: denies: Fever, Chills Nose: denies: Rhinorrhea / runny nose, Congestion Throat: denies: Sore throat Cardiac: denies: Palpitations, Pedal edema, Calf pain Respiratory: denies: Dyspnea, Cough GI: denies: Nausea, Vomiting, Diarrhea PD PAST MEDICAL HISTORY - Past Medical History Past Medical History: Yes Cardiovascular: Hypertension, High cholesterol, Atrial fibrillation (with ablations and cardioversions; has been without fib for 6 months), Arrhythmia, Other Respiratory: None Neuro: None Endocrine/Autoimmune: None GI: None : None HEENT: None Psych: Anxiety Musculoskeletal: None Derm: None - Past Surgical History Past Surgical History: Yes Cardiovascular: Cardiac catheterization, Other HEENT: Other - Present Medications Home Medications: Ambulatory Orders Medication Instructions Recorded Confirmed Alprazolam [Xanax] 1 mg PO DAILY PRN 11/30/14 05/10/19 Atorvastatin Calcium [Lipitor] 40 mg PO DAILY 11/30/14 05/10/19 Hydrochlorothiazide 12.5 mg PO DAILY 11/30/14 05/10/19 Apixaban [Eliquis] 5 mg PO DAILY 11/10/17 05/10/19 Flecainide [Tambocar] 100 mg PO BID 02/22/19 05/10/19 Metoprolol Succinate [Toprol Xl] 25 mg PO BID 02/22/19 05/10/19 Digestive 8/L.acidoph/Pectin 1 each PO DAILY #30 tablet 07/31/19 [Digestive Enzymes Tablet] Simethicone 180 mg PO BID PRN #60 capsule 07/31/19 - Allergies Allergies/Adverse Reactions: Allergies Allergy/AdvReac Type Severity Reaction Status Date / Time Penicillins Allergy passed out Verified 07/31/19 16:45 - Social History Does the pt smoke?: No Smoking Status: Never smoker Does the pt drink ETOH?: No Does the pt have substance abuse?: No - Immunizations Immunizations are current?: Yes - POLST Patient has POLST: No PD ED PE NORMAL - Vitals Vital signs reviewed: Yes - General General: Alert and oriented X 3, No acute distress, Well developed/nourished - Neck Neck: Supple, no meningeal sign, No adenopathy - Cardiac Cardiac: RRR, No murmur - Respiratory Respiratory: Clear bilaterally - Abdomen Abdomen: Soft, Non tender Results - Vitals Vitals: Vital Signs - 24 hr 07/31/19 07/31/19 07/31/19 16:34 17:08 18:30 Temperature 36.1 C L Heart Rate 62 55 L 55 L Respiratory 16 14 20 Rate Blood Pressure 168/75 H 160/84 H 154/71 H O2 Saturation 97 98 100 07/31/19 19:05 Temperature Heart Rate 54 L Respiratory 16 Rate Blood Pressure 151/77 H O2 Saturation 98 Oxygen O2 Source Room air - EKG (time done) 16:38 Rate: Rate (enter#) (64) Rhythm: NSR QRS: Normal Ischemia: T wave inversion (V3-V6, similar to ECG of May) Compare to prior EKG: Unchanged from prior EKG - Labs Labs: Laboratory Tests 07/31/19 07/31/19 07/31/19 17:20 17:20 17:20 WBC 7.3 RBC 4.67 L Hgb 14.4 Hct 42.8 MCV 91.6 MCH 30.8 MCHC 33.6 RDW 13.4 Plt Count 279 MPV 10.8 Neut # (Auto) 4.5 Lymph # (Auto) 1.6 [place] # (Auto) 0.9 Eos # (Auto) 0.1 Baso # (Auto) 0.1 Absolute Nucleated RBC 0.00 Nucleated RBC % 0.0 Sodium 135 Potassium 4.1 Chloride 99 L Carbon Dioxide 26 Anion Gap 10.0 BUN 22 H Creatinine 1.0 Estimated GFR (MDRD) 73 L Glucose 100 Calcium 9.3 Magnesium 2.2 Total Bilirubin 0.4 AST 33 ALT 37 Alkaline Phosphatase 68 Troponin I High Sens 2.3 Total Protein 7.1 Albumin 4.1 Globulin 3.0 Albumin/Globulin Ratio 1.4 Lipase 30 PD MEDICAL DECISION MAKING - ED course Complexity details: reviewed results, considered differential, d/w patient Departure - Departure Disposition: 01 Home, Self Care Clinical Impression: Chest discomfort Condition: Stable Record reviewed to determine appropriate education?: Yes Prescriptions: Digestive 8/L.acidoph/Pectin [Digestive Enzymes Tablet] 1 each PO DAILY #30 tablet Simethicone 180 mg PO BID PRN #60 capsule PRN Reason: Gas Comments: Your EKG is unchanged from prior. Your troponin level is normal so no signs of acute heart injury. Continue usual medications and activities. For your intestinal gassiness, you could continue the simethicone once or twice daily to help with that as needed. Consider also adding digestive enzyme supplement. Those are available [id number] and can help with gassiness as well. Recheck your blood pressure over the next several days to a week and see if there is any consistent elevation. Would usually not treat isolated episodes of blood pressure being high. Discharge Date/Time: 07/31/19 19:05
[2019-07-31 18:03] LABS: BASOPHILS # (AUTO) 0.1 10^3/uL (0.0-0.1); EOSINOPHILS # (AUTO) 0.1 10^3/uL (0.0-0.7); EOSINOPHILS % (AUTO) 1.6 %; HGB - HEMOGLOBIN 14.4 g/dL (14.0-18.0); LYMPHOCYTES # (AUTO) 1.6 10^3/uL (1.5-3.5); LYMPHOCYTES % (AUTO) 22.4 %; MEAN CORPUSCULAR HEMOGLOBIN 30.8 pg (27.0-31.0); MEAN CORPUSCULAR HGB CONC 33.6 g/dL (32.0-36.0); MEAN CORPUSCULAR VOLUME 91.6 fL (80.0-94.0); MEAN PLATELET VOLUME 10.8 fL (7.4-11.4); MONOCYTES # (AUTO) 0.9 10^3/uL (0.0-1.0); MONOCYTES % (AUTO) 12.6 %; NEUTROPHILS # (AUTO) 4.5 10^3/uL (1.5-6.6); NEUTROPHILS % (AUTO) 61.9 %; PLT - PLATELET COUNT 279 10^3/uL (130-450); RED BLOOD COUNT 4.67 10^6/uL (4.70-6.10); RED CELL DISTRIBUTION WIDTH 13.4 % (12.0-15.0); WHITE BLOOD COUNT 7.3 x10^3/uL (4.8-10.8)
[2019-07-31 18:51] LABS: ALBUMIN 4.1 g/dL (3.2-5.5); ALBUMIN/GLOBULIN RATIO 1.4 (1.0-2.2); BILIRUBIN,TOTAL 0.4 mg/dL (0.2-1.0); CALCIUM 9.3 mg/dL (8.5-10.3); TOTAL PROTEIN 7.1 g/dL (6.7-8.2)
[2019-07-31 19:05] VITALS: BP 151/77
== END 2019-07-31 19:05 | disposition home or self-care (01) ==
LOC: ED 16:28
DX: R07.89 Other chest pain (principal); R14.0 Abdominal distension (gaseous); I10 Essential (primary) hypertension; I48.91 Unspecified atrial fibrillation; Z79.01 Long term (current) use of anticoagulants
CPT/HCPCS: 36415; 80053; 83690; 83735; 84484; 85025; 93005; 99284

== ENCOUNTER 2019-10-16 08:44 | Outpatient (CLI) | payer MEDICARE, OTHER ==
[2019-10-16 12:47] LABS: BASOPHILS # (AUTO) 0.1 10^3/uL (0.0-0.1); BASOPHILS % (AUTO) 0.7 %; EOSINOPHILS # (AUTO) 0.2 10^3/uL (0.0-0.7); EOSINOPHILS % (AUTO) 2.1 %; HGB - HEMOGLOBIN 14.3 g/dL (14.0-18.0); LYMPHOCYTES # (AUTO) 2.8 10^3/uL (1.5-3.5); LYMPHOCYTES % (AUTO) 38.8 %; MEAN CORPUSCULAR HGB CONC 32.9 g/dL (32.0-36.0); MEAN CORPUSCULAR VOLUME 91.4 fL (80.0-94.0); MEAN PLATELET VOLUME 11.2 fL (7.4-11.4); MONOCYTES # (AUTO) 0.8 10^3/uL (0.0-1.0); MONOCYTES % (AUTO) 10.8 %; NEUTROPHILS # (AUTO) 3.4 10^3/uL (1.5-6.6); NEUTROPHILS % (AUTO) 47.3 %; PLT - PLATELET COUNT 300 10^3/uL (130-450); RED BLOOD COUNT 4.76 10^6/uL (4.70-6.10); RED CELL DISTRIBUTION WIDTH 12.9 % (12.0-15.0); WHITE BLOOD COUNT 7.2 x10^3/uL (4.8-10.8)
[2019-10-16 13:11] LABS: ALBUMIN/GLOBULIN RATIO 1.2 (1.0-2.2); ALKALINE PHOSPHATASE 69 IU/L (42-121); ALT ALANINE AMINOTRANSFERASE 35 IU/L (10-60); AST ASPARTATE AMINOTRANSFERASE 32 IU/L (10-42); BUN - BLOOD UREA NITROGEN 22 mg/dL (6-20); CALCIUM 9.3 mg/dL (8.5-10.3); CARBON DIOXIDE - CO2 26 mmol/L (21-32); CHLORIDE 105 mmol/L (101-111); CHOL/HDL RATIO 3.3 (<5.0); CHOLESTEROL 180 mg/dL; CREATININE 1.1 mg/dL (0.6-1.2); GLUCOSE 113 mg/dL (70-100); HDL CHOLESTEROL 55 mg/dL; LDL CHOLESTEROL,CALCULATED 110 mg/dL; SODIUM 137 mmol/L (135-145); TOTAL PROTEIN 7.3 g/dL (6.7-8.2); VLDL CHOLESTEROL 15 mg/dL
== END 2019-10-16 23:59 | disposition home or self-care (01) ==
LOC: LAB.WCP 08:44
PROVIDERS: ATTEND Family Medicine
DX: I10 Essential (primary) hypertension (principal); E78.5 Hyperlipidemia, unspecified
CPT/HCPCS: 36415; 80053; 80061; 83721; 84443; 85025

== ENCOUNTER 2019-12-19 16:16 | Outpatient (CLI) | payer MEDICARE, OTHER | END 2019-12-19 16:17 | disposition critical access hospital (66) | LOC: EMS 16:16 | PROVIDERS: ATTEND Surgery | DX: R07.9 Chest pain, unspecified (principal) | CPT/HCPCS: A0425; A0427 ==

== ENCOUNTER 2019-12-19 16:33 | Emergency (ER) | payer MEDICARE, OTHER ==
[2019-12-19 17:08] LABS: BASOPHILS # (AUTO) 0.1 10^3/uL (0.0-0.1); EOSINOPHILS # (AUTO) 0.1 10^3/uL (0.0-0.7); EOSINOPHILS % (AUTO) 1.3 %; HGB - HEMOGLOBIN 13.4 g/dL (14.0-18.0); LYMPHOCYTES # (AUTO) 1.9 10^3/uL (1.5-3.5); LYMPHOCYTES % (AUTO) 27.2 %; MEAN CORPUSCULAR HEMOGLOBIN 31.8 pg (27.0-31.0); MEAN CORPUSCULAR HGB CONC 34.3 g/dL (32.0-36.0); MEAN CORPUSCULAR VOLUME 92.7 fL (80.0-94.0); MEAN PLATELET VOLUME 10.3 fL (7.4-11.4); MONOCYTES # (AUTO) 0.8 10^3/uL (0.0-1.0); MONOCYTES % (AUTO) 11.6 %; NEUTROPHILS % (AUTO) 58.8 %; PLT - PLATELET COUNT 261 10^3/uL (130-450); RED BLOOD COUNT 4.22 10^6/uL (4.70-6.10); RED CELL DISTRIBUTION WIDTH 13.3 % (12.0-15.0); WHITE BLOOD COUNT 6.8 x10^3/uL (4.8-10.8)
[2019-12-19 17:23] LABS: ALBUMIN 3.7 g/dL (3.2-5.5); ALBUMIN/GLOBULIN RATIO 1.3 (1.0-2.2); BILIRUBIN,TOTAL 0.7 mg/dL (0.2-1.0); CREATININE 1.2 mg/dL (0.6-1.2); TOTAL PROTEIN 6.5 g/dL (6.7-8.2)
--- NOTE | 2019-12-19 17:54 | ED Physician Documentation ---
History of Present Illness - Stated complaint Stated Complaint: PAIN/ARM NUMBNESS - Chief complaint Chief Complaint: Cardiac - History obtained from History obtained from: Patient - Additonal information Additional information: Note of abdominal pain and bloating with upset that progressed to palpitations and a sensation of numbness in his left arm. Patient states that when he began to feel the discomfort in his abdomen, he began to feel as though an anxiety attack was coming on. Patient states that he had some hyperventilating for a while. He took his blood pressure which was elevated to a systolic of 200. He states that he has a history of A. fib with a successful ablation some years ago. He has not had any trouble with this since, but he did note that when his blood pressure was taken, the pulse rate was found to be 191 on the machine. Patient states that he did not take his pulse to see if this was the actual number. Patient states that when the medics got there, they got a heart rate of less than 100, and patient again felt better. They did give him a spray of nitroglycerin which did seem to help a little bit. Patient states his symptoms completely resolved on their own. He is feeling completely well now and denies any complaints. Patient states he works out most days of the week with his , and that he did workout this morning and had no dyspnea or chest pain on exertion. He states that had been about 4 hours since the workout when his symptoms started. He does follow with Dr. Gomez for cardiology and states he just saw him 2 weeks ago. Review of Systems Ten Systems: 10 systems reviewed and negative Constitutional: reports: Reviewed and negative Eyes: reports: Reviewed and negative Ears: reports: Reviewed and negative Nose: reports: Reviewed and negative Throat: reports: Reviewed and negative Cardiac: reports: Chest pain / pressure, Palpitations Respiratory: reports: Reviewed and negative GI: reports: Abdominal Pain : reports: Reviewed and negative Skin: reports: Reviewed and negative Musculoskeletal: reports: Reviewed and negative Neurologic: reports: Other (Paresthesia) Psychiatric: reports: Reviewed and negative Endocrine: reports: Reviewed and negative Immunocompromised: reports: Reviewed and negative PD PAST MEDICAL HISTORY - Past Medical History Cardiovascular: Hypertension, High cholesterol, Atrial fibrillation, Arrhythmia, Other Respiratory: None Neuro: None Endocrine/Autoimmune: None GI: None : None HEENT: None Psych: Anxiety Musculoskeletal: None Derm: None - Past Surgical History Past Surgical History: Yes Cardiovascular: Cardiac catheterization, Other HEENT: Other - Present Medications Home Medications: Ambulatory Orders Medication Instructions Recorded Confirmed Alprazolam [Xanax] 1 mg PO DAILY PRN 11/30/14 05/10/19 Atorvastatin Calcium [Lipitor] 40 mg PO DAILY 11/30/14 05/10/19 Hydrochlorothiazide 12.5 mg PO DAILY 11/30/14 05/10/19 Apixaban [Eliquis] 5 mg PO DAILY 11/10/17 05/10/19 Flecainide [Tambocar] 100 mg PO BID 02/22/19 05/10/19 Metoprolol Succinate [Toprol Xl] 25 mg PO BID 02/22/19 05/10/19 Digestive 8/L.acidoph/Pectin 1 each PO DAILY #30 tablet 07/31/19 [Digestive Enzymes Tablet] Simethicone 180 mg PO BID PRN #60 capsule 07/31/19 - Allergies Allergies/Adverse Reactions: Allergies Allergy/AdvReac Type Severity Reaction Status Date / Time Penicillins Allergy passed out Verified 07/31/19 16:45 - Social History Does the pt smoke?: No Smoking Status: Never smoker Does the pt drink ETOH?: No Does the pt have substance abuse?: No - Immunizations Immunizations are current?: Yes - POLST Patient has POLST: No PD ED PE NORMAL - Vitals Vital signs reviewed: Yes - General General: Alert and oriented X 3, No acute distress - HEENT HEENT: Atraumatic, PERRL, EOMI, Moist mucous membranes - Neck Neck: Supple, no meningeal sign - Cardiac Cardiac: RRR, No murmur, Strong equal pulses - Respiratory Respiratory: No respiratory distress, Clear bilaterally - Abdomen Abdomen: Soft, Non tender, Non distended - Derm Derm: Normal color, Warm and dry, No rash - Extremities Extremities: No deformity, Normal ROM s pain, No edema, No calf tenderness / cord - Neuro Neuro: Alert and oriented X 3, No sensory deficit, Other (Grossly normal) - Psych Psych: Normal mood, Normal affect Results - Vitals Vitals: Oxygen O2 Source Room air - EKG (time done) 1640 Rate: Rate (enter#) (73) Rhythm: NSR [place]: Normal Intervals: Prolonged [place] Ischemia: ST depression (Anterolateral leads.), T wave inversion (Anterolateral leads) Other comments: Other comments (Abnormal R wave progression, early transition.) Compare to prior EKG: Unchanged from prior EKG Computer interpretation: Disagree with computer (No acute ischemia: ST depressions and T wave inversions unchanged from past 2 EKGs) - Labs Labs: Laboratory Tests 12/19/19 12/19/19 12/19/19 17:02 17:02 17:02 WBC 6.8 RBC 4.22 L Hgb 13.4 L Hct 39.1 L MCV 92.7 MCH 31.8 H MCHC 34.3 RDW 13.3 Plt Count 261 MPV 10.3 Neut # (Auto) 4.0 Lymph # (Auto) 1.9 [place] # (Auto) 0.8 Eos # (Auto) 0.1 Baso # (Auto) 0.1 Absolute Nucleated RBC 0.00 Nucleated RBC % 0.0 Sodium 136 Potassium 3.7 Chloride 101 Carbon Dioxide 23 Anion Gap 12.0 BUN 22 H Creatinine 1.2 Estimated GFR (MDRD) 59 L Glucose 120 H Calcium 9.0 Total Bilirubin 0.7 AST 31 ALT 34 Alkaline Phosphatase 58 Troponin I High Sens 3.2 Total Protein 6.5 L Albumin 3.7 Globulin 2.8 Albumin/Globulin Ratio 1.3 Lipase 34 PD MEDICAL DECISION MAKING - ED course Complexity details: reviewed results, re-evaluated patient, considered differential, d/w patient ED course: The patient was worked up in the emergency department with labs, as well as EKG. Labs were unremarkable. EKG showed inverted T waves with ST depression in leads V2 through V6, which was unchanged since the patient's last EKG in July. The EKG in July was unchanged from prior, as well, indicating this is a chronic finding for the patient. Patient was found to be feeling completely without symptoms, and I felt he was stable for discharge home. Have discussed with him that if he has any further episodes of palpitations and not feeling well, then he will need to see his primary doctor or his director trial again to discuss having an event monitor placed to see what is going on during those times. The patient has been working out on a regular basis and has had no dyspnea or chest pain, and I feel it is unlikely this patient has had an ischemic event. We have discussed the usual indications for return to the emergency department. Departure - Departure Disposition: Home, Self Care Clinical Impression: Abdominal bloating, Anxiety Abdominal pain Qualifiers: Abdominal location: epigastric Qualified Code(s): R10.13 - Epigastric pain Chest pain Qualifiers: Chest pain type: unspecified Qualified Code(s): R07.9 - Chest pain, unspecified Condition: Stable Instructions: ED Abdominal Pain Unkn Cause, ED Chest Pain Atypical Unkn Cause Comments: Your labs and EKG look good. There is no evidence of an emergent cause of your symptoms at this time. Please follow-up with your primary care physician, should she have repeated episodes like this. If you develop unremitting chest pain or shortness of breath, please return to the emergency department immediately. Discharge Date/Time: 12/19/19 18:57
[2019-12-19 18:19] VITALS: BP 142/78
== END 2019-12-19 18:57 | disposition home or self-care (01) ==
LOC: EDUNIT# → ED 16:33
DX: R14.0 Abdominal distension (gaseous) (principal); R10.13 Epigastric pain; R07.9 Chest pain, unspecified; I10 Essential (primary) hypertension; I48.91 Unspecified atrial fibrillation; Z79.01 Long term (current) use of anticoagulants
CPT/HCPCS: 36415; 80053; 83690; 84484; 85025; 93005; 99284

== ENCOUNTER 2020-02-14 08:40 | Outpatient (CLI) | payer MEDICARE, OTHER ==
[2020-02-14 13:11] LABS: BASOPHILS # (AUTO) 0.1 10^3/uL (0.0-0.1); EOSINOPHILS # (AUTO) 0.2 10^3/uL (0.0-0.7); EOSINOPHILS % (AUTO) 3.5 %; HGB - HEMOGLOBIN 14.4 g/dL (14.0-18.0); LYMPHOCYTES % (AUTO) 35.1 %; MEAN CORPUSCULAR HEMOGLOBIN 31.9 pg (27.0-31.0); MEAN CORPUSCULAR HGB CONC 34.3 g/dL (32.0-36.0); MEAN CORPUSCULAR VOLUME 92.9 fL (80.0-94.0); MEAN PLATELET VOLUME 11.4 fL (7.4-11.4); MONOCYTES # (AUTO) 0.7 10^3/uL (0.0-1.0); MONOCYTES % (AUTO) 12.2 %; NEUTROPHILS # (AUTO) 2.7 10^3/uL (1.5-6.6); NEUTROPHILS % (AUTO) 47.9 %; PLT - PLATELET COUNT 254 10^3/uL (130-450); RED BLOOD COUNT 4.52 10^6/uL (4.70-6.10); RED CELL DISTRIBUTION WIDTH 13.2 % (12.0-15.0); WHITE BLOOD COUNT 5.7 x10^3/uL (4.8-10.8)
[2020-02-14 13:40] LABS: ALBUMIN 3.9 g/dL (3.2-5.5); ALBUMIN/GLOBULIN RATIO 1.2 (1.0-2.2); ALKALINE PHOSPHATASE 78 IU/L (42-121); ALT ALANINE AMINOTRANSFERASE 33 IU/L (10-60); AST ASPARTATE AMINOTRANSFERASE 31 IU/L (10-42); BILIRUBIN,TOTAL 0.4 mg/dL (0.2-1.0); BUN - BLOOD UREA NITROGEN 20 mg/dL (6-20); CALCIUM 9.3 mg/dL (8.5-10.3); CARBON DIOXIDE - CO2 23 mmol/L (21-32); CHLORIDE 108 mmol/L (101-111); CHOL/HDL RATIO 3.3 (<5.0); CHOLESTEROL 180 mg/dL; CREATININE 0.9 mg/dL (0.6-1.2); GLUCOSE 109 mg/dL (70-100); HDL CHOLESTEROL 55 mg/dL; LDL CHOLESTEROL,CALCULATED 112 mg/dL; SODIUM 139 mmol/L (135-145); TOTAL PROTEIN 7.1 g/dL (6.7-8.2); VLDL CHOLESTEROL 13 mg/dL
== END 2020-02-14 23:59 | disposition home or self-care (01) ==
LOC: LAB.WCP 08:40
PROVIDERS: ATTEND Family Medicine
DX: I95.9 Hypotension, unspecified (principal); R73.01 Impaired fasting glucose; I10 Essential (primary) hypertension; I48.92 Unspecified atrial flutter; I48.91 Unspecified atrial fibrillation; E78.5 Hyperlipidemia, unspecified
CPT/HCPCS: 36415; 80053; 80061; 83721; 84443; 85025

== ENCOUNTER 2020-03-01 21:44 | Outpatient (CLI) | payer MEDICARE, OTHER | END 2020-03-01 21:45 | disposition EMS.NT | LOC: EMS 21:44 | PROVIDERS: ATTEND Surgery | DX: Z76.89 Persons encountering health services in other specified circumstances (principal) ==

== ENCOUNTER 2020-07-28 08:00 | Outpatient (CLI) | payer MEDICARE, OTHER ==
[2020-07-28 12:19] LABS: CALCIUM 9.4 mg/dL (8.5-10.3); CREATININE 1.2 mg/dL (0.6-1.2)
[2020-07-28 13:08] LABS: HEMOGLOBIN A1c% 5.5 % (4.27-6.07)
[2020-07-28 18:54] LABS: CREATININE,URINE 79.6 mg/dL; MICROALBUM/CREATININE RATIO,UR 3.8 ug/mg (<30.0); MICROALBUMIN,URINE 0.3 mg/dL (0-300.0)
== END 2020-07-28 23:59 | disposition home or self-care (01) ==
LOC: LAB.WCP 08:00
PROVIDERS: ATTEND Family Medicine
DX: E78.5 Hyperlipidemia, unspecified (principal); I10 Essential (primary) hypertension; R73.01 Impaired fasting glucose
CPT/HCPCS: 36415; 80048; 82043; 82570; 83036

== ENCOUNTER 2020-12-03 18:26 | Outpatient (CLI) | payer MEDICARE, OTHER | END 2020-12-03 18:27 | disposition critical access hospital (66) | LOC: EMS 18:26 | DX: R00.0 Tachycardia, unspecified (principal); R03.0 Elevated blood-pressure reading, without diagnosis of hypertension; R06.02 Shortness of breath; R20.2 Paresthesia of skin; R10.9 Unspecified abdominal pain | CPT/HCPCS: A0425; A0429 ==

== ENCOUNTER 2020-12-03 18:37 | Emergency (ER) | payer MEDICARE, OTHER ==
--- NOTE | 2020-12-03 18:37 | ED Physician Documentation ---
History of Present Illness - Stated complaint Stated Complaint: AFIB - History obtained from History obtained from: Patient - History of Present Illness Timing: Enter time (17:00), Today Pain level max: 0 Pain level now: 0 Improved by: nothing Worsened by: no exacerbating factors - Additonal information Additional information: BIBA. c/o sudden onset rapid and irregular palpitations since 5 PM. onset was at home shortly after eating dinner. dyspnea with symptom onset but resolved OR SCRUB TECH. denies chest pain. he recognizes the palpitations as SUSAN from previous episodes; he has been cardioverted for this twice before (ED in [place] and [facility]) and subsequently had cardiac ablation. Review of Systems Cardiac: reports: Palpitations. denies: Chest pain / pressure, Pedal edema Respiratory: reports: Dyspnea (resolved OR SCRUB TECH) GI: reports: Reviewed and negative Neurologic: reports: Reviewed and negative PD PAST MEDICAL HISTORY - Past Medical History Past Medical History: Yes Cardiovascular: Hypertension, Atrial fibrillation - Past Surgical History Past Surgical History: No - Present Medications Home Medications: Ambulatory Orders Medication Instructions Recorded Confirmed Alprazolam [Xanax] 1 mg PO DAILY PRN 11/30/14 12/03/20 Atorvastatin Calcium [Lipitor] 40 mg PO DAILY 11/30/14 12/03/20 Apixaban [Eliquis] 5 mg PO DAILY 11/10/17 12/03/20 Flecainide [Tambocar] 100 mg PO BID 02/22/19 12/03/20 Metoprolol Succinate [Toprol Xl] 25 mg PO BID 02/22/19 12/03/20 - Allergies Allergies/Adverse Reactions: Allergies Allergy/AdvReac Type Severity Reaction Status Date / Time Penicillins Allergy passed out Verified 12/03/20 18:44 - Living Situation Living Situation: reports: With spouse/s.o. Living Arrangement: reports: At home PD ED PE NORMAL - Vitals Vital signs reviewed: Yes - General General: Alert and oriented X 3, No acute distress, Well developed/nourished - Neck Neck: Supple, no meningeal sign - Cardiac Cardiac: No murmur - Respiratory Respiratory: No respiratory distress, Clear bilaterally - Abdomen Abdomen: Soft, Non tender - Extremities Extremities: No edema - Neuro Neuro: Alert and oriented X 3 PD ED PE EXPANDED - Cardiac Cardiac: Tachy, Irregularly irregular Results - Vitals Vitals: Vital Signs - 24 hr 12/03/20 12/03/20 12/03/20 18:41 19:04 19:10 Temperature 36.3 C L 36.8 C Heart Rate 132 H 125 H Respiratory 16 18 19 Rate Blood Pressure 169/124 H 168/114 H O2 Saturation 99 94 93 12/03/20 12/03/20 12/03/20 19:15 19:18 19:20 Temperature Heart Rate 96 111 H 96 Respiratory 17 Rate Blood Pressure 196/126 H 196/126 H 139/76 H O2 Saturation 97 12/03/20 12/03/20 12/03/20 19:25 19:36 20:03 Temperature Heart Rate 80 77 91 Respiratory 94 H 16 16 Rate Blood Pressure 124/70 114/65 140/70 H O2 Saturation 18 L 97 12/03/20 12/03/20 12/03/20 20:20 20:59 21:16 Temperature Heart Rate 98 125 H 68 Respiratory 16 17 17 Rate Blood Pressure 116/63 133/92 H O2 Saturation 94 94 94 12/03/20 12/03/20 12/03/20 21:18 21:41 22:50 Temperature Heart Rate 58 L 90 Respiratory 18 15 Rate Blood Pressure 112/69 107/63 144/87 H O2 Saturation 94 96 12/03/20 12/04/20 12/04/20 23:25 00:32 00:35 Temperature Heart Rate 102 H 158 H 158 H Respiratory 15 17 19 Rate Blood Pressure 125/77 153/102 H 153/102 H O2 Saturation 94 99 99 12/04/20 12/04/20 12/04/20 00:39 00:44 00:46 Temperature Heart Rate 123 H 56 L 57 L Respiratory 16 19 19 Rate Blood Pressure 116/72 103/65 99/48 L O2 Saturation 97 96 98 12/04/20 12/04/20 12/04/20 00:51 01:19 01:36 Temperature Heart Rate 125 H 49 L 49 L Respiratory 20 15 15 Rate Blood Pressure 106/61 102/69 105/60 O2 Saturation 98 99 99 12/04/20 12/04/20 01:58 01:59 Temperature 36.6 C Heart Rate 49 L Respiratory 17 Rate Blood Pressure O2 Saturation 98 Oxygen O2 Source Room air - EKG (time done) No standard instances Rate: Rate (enter#) (142) Rhythm: Atrial fibrillation [place]: RAD QRS: Normal Ischemia: T wave inversion (V leads) post-cardioversion Rate: Rate (enter#) (54) Rhythm: Sinus bradycardia [place]: Normal Intervals: Normal MT QRS: Normal Ischemia: Normal ST segments, T wave inversion (V leads) Compare to prior EKG: Other (no significant change compared to 03/01/20 including T wave inversions in V leads) - Labs Labs: Laboratory Tests 12/03/20 12/03/20 12/03/20 18:58 18:58 18:58 WBC 9.5 RBC 4.56 L Hgb 14.3 Hct 41.0 L MCV 89.9 MCH 31.4 H MCHC 34.9 RDW 13.0 Plt Count 247 MPV 10.6 Neut # (Auto) 5.1 Lymph # (Auto) 3.0 [place] # (Auto) 1.1 H Eos # (Auto) 0.1 Baso # (Auto) 0.1 Absolute Nucleated RBC 0.00 Nucleated RBC % 0.0 Sodium 134 L Potassium 4.0 Chloride 101 Carbon Dioxide 21 Anion Gap 12.0 BUN 22 H Creatinine 1.3 H Estimated GFR (MDRD) 54 L Glucose 128 H Calcium 8.9 Total Bilirubin 0.7 AST 33 ALT 34 Alkaline Phosphatase 76 Troponin I High Sens 4.6 Total Protein 7.1 Albumin 3.9 Globulin 3.2 Albumin/Globulin Ratio 1.2 Lipase 30 Procedures - Procedural sedation Sedation prep: Informed consent, Time out completed, Last meal (5 PM), PE performed, ASA 2 - mild disease Sedation medications: morphine, propofol, given by RN (morphine), given by MD (p ropofol) Patient status during sedation: Responds to tactile, Vitals remained stable, Maintained airway, Recovered uneventfully Sedation recovery: Recovered uneventfully, Back to baseline Time in sedation (Minutes): 15 - Cardioversion Attempt 1 Indication: Tachyarrhythmia Risks, benefits, alternatives explained to: Pt Prep: IV, O2, media monitor, Pulse ox Meds: Morphine, Propofol CS via: Pads, AP approach Sync: Biphasic, 100j (synchronized) Post cardioversion rhythm: NSR Complications: No: Contact burn, Apnea, Hypotension Performed by: ED MD PD MEDICAL DECISION MAKING - ED course Complexity details: reviewed results, re-evaluated patient, considered differential, d/w patient ED course: Patient presents with rapid atrial fibrillation. He has a history of previous s uch episodes which had been treated with electrocardioversion twice followed by cardiac ablation. His medications include Eliquis. Rate control was transiently achieved with IV Cardizem, but he gradually return to rapid atrial fibrillation and thus is given a second dose of cardizem IV. The second dose of Cardizem had a similar effect, again initially achieving rate control before gradually increa sing heart rate into tachycardic range at rest. I recommended electrocardioversion at this point and, after discussion of risks and benefits of this procedure, he agrees and consents to conscious sedation and cardioversion. morphine 4mg IV given followed by titration of propofol. successful cardioversion on first attempt with 100 joules (synchronized). he recovered uneventfully Departure - Departure Disposition: 01 Home, Self Care Clinical Impression: Atrial fibrillation with RVR Condition: Good Instructions: ED Afib, ED Cardioversion Electrical, ED Sedation Procedural Discon Discharge Date/Time: 12/04/20 02:00
[2020-12-03] MEDS ORDERED: diltiaZEM INJ 5 MG/ML VIAL IVP STA ×2 (18:50→20:57)
[2020-12-03 19:02] LABS: BASOPHILS # (AUTO) 0.1 10^3/uL (0.0-0.1); BASOPHILS % (AUTO) 0.8 %; EOSINOPHILS # (AUTO) 0.1 10^3/uL (0.0-0.7); EOSINOPHILS % (AUTO) 1.5 %; HGB - HEMOGLOBIN 14.3 g/dL (14.0-18.0); MEAN CORPUSCULAR HEMOGLOBIN 31.4 pg (27.0-31.0); MEAN CORPUSCULAR HGB CONC 34.9 g/dL (32.0-36.0); MEAN CORPUSCULAR VOLUME 89.9 fL (80.0-94.0); MEAN PLATELET VOLUME 10.6 fL (7.4-11.4); MONOCYTES # (AUTO) 1.1 10^3/uL (0.0-1.0); NEUTROPHILS # (AUTO) 5.1 10^3/uL (1.5-6.6); NEUTROPHILS % (AUTO) 53.5 %; PLT - PLATELET COUNT 247 10^3/uL (130-450); RED BLOOD COUNT 4.56 10^6/uL (4.70-6.10); WHITE BLOOD COUNT 9.5 x10^3/uL (4.8-10.8)
[2020-12-03 19:15] LABS: ALBUMIN 3.9 g/dL (3.2-5.5); ALBUMIN/GLOBULIN RATIO 1.2 (1.0-2.2); BILIRUBIN,TOTAL 0.7 mg/dL (0.2-1.0); CALCIUM 8.9 mg/dL (8.5-10.3); CREATININE 1.3 mg/dL (0.6-1.2); TOTAL PROTEIN 7.1 g/dL (6.7-8.2)
[2020-12-03] MEDS ORDERED: PROPOFOL 200 MG/20 ML VIAL IVP STA (23:38)
[2020-12-03] MEDS ORDERED: MORPHINE 2 MG/ML CARPUJECT IVP STA (23:40)
[2020-12-04 01:40] VITALS: BP 105/60
== END 2020-12-04 02:00 | disposition home or self-care (01) ==
LOC: EDUNIT# → ED 18:37
DX: I48.91 Unspecified atrial fibrillation (principal); I10 Essential (primary) hypertension; Z79.01 Long term (current) use of anticoagulants
CPT/HCPCS: 36415; 80053; 83690; 84484; 85025; 92960; 93005; 94770; 99152

== ENCOUNTER 2021-06-15 08:00 | Outpatient (CLI) | payer MEDICARE, OTHER ==
[2021-06-15 12:05] LABS: BASOPHILS # (AUTO) 0.1 10^3/uL (0.0-0.1); BASOPHILS % (AUTO) 1.4 %; EOSINOPHILS # (AUTO) 0.3 10^3/uL (0.0-0.7); EOSINOPHILS % (AUTO) 3.9 %; HCT - HEMATOCRIT 43.1 % (42.0-52.0); HGB - HEMOGLOBIN 14.6 g/dL (14.0-18.0); LYMPHOCYTES # (AUTO) 2.6 10^3/uL (1.5-3.5); LYMPHOCYTES % (AUTO) 36.8 %; MEAN CORPUSCULAR HEMOGLOBIN 30.9 pg (27.0-31.0); MEAN CORPUSCULAR HGB CONC 33.9 g/dL (32.0-36.0); MEAN CORPUSCULAR VOLUME 91.3 fL (80.0-94.0); MONOCYTES # (AUTO) 0.8 10^3/uL (0.0-1.0); MONOCYTES % (AUTO) 11.2 %; NEUTROPHILS # (AUTO) 3.3 10^3/uL (1.5-6.6); NEUTROPHILS % (AUTO) 46.4 %; PLT - PLATELET COUNT 297 10^3/uL (130-450); RED BLOOD COUNT 4.72 10^6/uL (4.70-6.10); RED CELL DISTRIBUTION WIDTH 13.1 % (12.0-15.0); WHITE BLOOD COUNT 7.2 x10^3/uL (4.8-10.8)
[2021-06-15 12:16] LABS: ALBUMIN/GLOBULIN RATIO 1.2 (1.0-2.2); ALKALINE PHOSPHATASE 69 IU/L (42-121); ALT ALANINE AMINOTRANSFERASE 29 IU/L (10-60); AST ASPARTATE AMINOTRANSFERASE 32 IU/L (10-42); BILIRUBIN,TOTAL 0.7 mg/dL (0.2-1.0); BUN - BLOOD UREA NITROGEN 22 mg/dL (6-20); CALCIUM 9.5 mg/dL (8.5-10.3); CARBON DIOXIDE - CO2 26 mmol/L (21-32); CHLORIDE 102 mmol/L (101-111); CHOL/HDL RATIO 3.5 (<5.0); CHOLESTEROL 184 mg/dL; CREATININE 1.1 mg/dL (0.6-1.2); GFR - MDRD 65 (>89); GLUCOSE 110 mg/dL (70-100); HDL CHOLESTEROL 53 mg/dL; LDL CHOLESTEROL,CALCULATED 112 mg/dL; LDL/HDL RATIO 2.1 (<3.6); POTASSIUM 4.5 mmol/L (3.5-5.0); SODIUM 137 mmol/L (135-145); TOTAL PROTEIN 7.4 g/dL (6.7-8.2); TRIGLYCERIDES 96 mg/dL; VLDL CHOLESTEROL 19 mg/dL
[2021-06-15 12:22] LABS: ESTIMATED AVERAGE GLUCOSE 117 mg/dL (70-100); HEMOGLOBIN A1c% 5.7 % (4.27-6.07)
[2021-06-15 12:35] LABS: THYROID STIMULATING HORMONE 1.77 uIU/mL (0.34-5.60)
== END 2021-06-15 23:59 ==
LOC: LAB.WCP 08:00
PROVIDERS: ATTEND Internal Medicine
DX: E78.5 Hyperlipidemia, unspecified (principal); R73.01 Impaired fasting glucose; Z12.5 Encounter for screening for malignant neoplasm of prostate; I48.0 Paroxysmal atrial fibrillation; I10 Essential (primary) hypertension
CPT/HCPCS: 36415; 80053; 80061; 83036; 84443; 85025; G0103; 83721; 84153

== ENCOUNTER 2021-06-21 07:08 | Day surgery (SDC) | payer MEDICARE, OTHER ==
[2021-06-21] MEDS ORDERED: LACTATED RINGERS 1,000 ML IV ONE ×2 (07:36→09:08)
--- NOTE | 2021-06-21 07:58 | ANESTHESIA ---
Pre-Anesthesia VS, & Labs - Diagnosis hx of polyps - Procedure colonscopy Vital Signs: Temp Pulse Resp BP Pulse Ox 36.6 C 90 16 162/83 H 95 06/21/21 07:28 06/21/21 07:28 06/21/21 07:28 06/21/21 07:28 06/21/21 07:28 Height: 6 ft 1 in Weight (kg): 95.6 kg Body Mass Index: 27.8 BMI Classification: Overweight - NPO >8 hours Home Medications and Allergies Home Medications: Ambulatory Orders lisinopriL [Zestril] 5 mg PO DAILY 06/10/21 Alprazolam [Xanax] 1 mg PO DAILY PRN 11/30/14 Atorvastatin Calcium [Lipitor] 40 mg PO DAILY 11/30/14 Apixaban [Eliquis] 5 mg PO DAILY 11/10/17 Flecainide [Tambocar] 100 mg PO BID 02/22/19 Metoprolol Succinate [Toprol Xl] 25 mg PO BID 02/22/19 lisinopriL [Zestril] 5 mg PO DAILY 06/10/21 Allergies/Adverse Reactions: Allergies Allergy/AdvReac Type Severity Reaction Status Date / Time Penicillins Allergy Edema Verified 06/10/21 11:42 Anes History & Medical History - Anesthetic History Anesthesia Complications: reports: No previous complications Family history of Anesthesia Complications: Denies Family history of Malignant Hyperthermia: Denies - Medical History Cardiovascular: reports: Hypertension, High cholesterol, Atrial fibrillation Pulmonary: reports: None Gastrointestinal: reports: None, GERD, Colon polyps Urinary: reports: None Neuro: reports: None Musculoskeletal: reports: None Endocrine/Autoimmune: reports: None Blood Disorders: reports: None, Polycythemia vera Skin: reports: None Smoking Status: Never smoker - Surgical History General: reports: Colonoscopy Eyes Ears Nose Throat (EENT): reports: Other Cardiothoracic: reports: Cardiac catheterization, Other Urologic: reports: Ureterolithotomy (stones), Testicular surgery Exam General: Alert, Oriented x3, Cooperative Dental: WNL Mouth Openin Fingerbreadth Mallampati classification: II Thyromental Distance: 4-6 cm Respiratory: Lungs clear Cardiovascular: Regular rate Abdomen: Normal bowel sounds Extremities: No clubbing Neurological: Normal gait Mental/Cognitive Status: Alert/Oriented X3 Cognitive Status: Within normal limits Plan Anesthesia Type: Total IV Consent for Procedure(s) Verified and Reviewed: Yes Code Status: Attempt Resuscitation ASA classification: 2-Mild systemic disease Is this case an emergency?: No
--- NOTE | 2021-06-21 08:27 | HISTORY & PHYSICAL EXAMINATION ---
Chief Complaint - Chief Complaint Chief Complaint: positive cologuard History of Present Illness - History Obtained From History obtained from: pt Exam Limitations: none - History of Present Illness HPI Comment/Other: History of colon polyps. Had a cologuard which is positive. No symptoms of pathology. History - Past Medical History Cardiovascular: reports: Hypertension, High cholesterol, Atrial fibrillation Respiratory: reports: None Neuro: reports: None Endocrine/Autoimmune: reports: None GI: reports: None, GERD, Colon polyps : reports: None HEENT: reports: None Psych: reports: Anxiety, Panic attacks Musculoskeletal: reports: None Derm: reports: None MRSA Hx?: No - Past Surgical History General: reports: Colonoscopy Cardiovascular: reports: Cardiac catheterization, Other HEENT: reports: Other - Family & Social History Living Situation: With spouse/s.o. - POLST Patient has POLST: No Meds/Allgy - Home Medications Home Medications: Ambulatory Orders Medication Instructions Recorded Confirmed Alprazolam [Xanax] 1 mg PO DAILY PRN 11/30/14 06/10/21 Atorvastatin Calcium [Lipitor] 40 mg PO DAILY 11/30/14 06/21/21 Apixaban [Eliquis] 5 mg PO DAILY 11/10/17 06/21/21 Flecainide [Tambocar] 100 mg PO BID 02/22/19 06/21/21 Metoprolol Succinate [Toprol Xl] 25 mg PO BID 02/22/19 06/21/21 lisinopriL [Zestril] 5 mg PO DAILY 06/10/21 06/21/21 - Allergies Allergies/Adverse Reactions: Allergies Allergy/AdvReac Type Severity Reaction Status Date / Time Penicillins Allergy Edema Verified 06/10/21 11:42 Review of Systems - Other Findings Other Findings: 10 pt ros as above otherwise unremarkable Exam - Vital Signs Reviewed Vital Signs: Yes Vital Signs: Vital Signs x48h Temp Pulse Resp BP Pulse Ox 06/21/21 07:28 36.6 C 90 16 162/83 H 95 - Physical Exam General Appearance: positive: No acute distress, Alert Eyes Bilateral: positive: PERRL, EOMI ENT: positive: No signs of dehydration Neck: positive: No JVD Respiratory: positive: No respiratory distress, Breath sounds nml Cardiovascular: positive: Regular rate & rhythm Abdomen: positive: Non-tender, No distention Neurologic/Psychiatric: positive: Oriented x3 Conclusion/Plan - Problem List (1) Abnormal stool test Conclusion/Plan: positive cologuard. plan colonoscopy. parq held and consent obtained
[2021-06-21] MEDS ORDERED: LIDOCAINE-MPF 2% 5 ML VIAL ONE (08:29)
[2021-06-21] MEDS ORDERED: PROPOFOL 500 MG/50 ML 500 MG/50 ML VIAL ONE (08:29)
[2021-06-21 10:05] VITALS: BP 142/69
[2021-06-21] MEDS ORDERED: METOCLOPRAMIDE 10 MG/2 ML VIAL IVP PRN (10:09)
[2021-06-21] MEDS ORDERED: MORPHINE 2 MG/ML CARPUJECT IVP PRN (10:09)
[2021-06-21] MEDS ORDERED: ATROPINE ABBOJECT 1 MG/10 ML SYRINGE IVP PRN (10:09)
[2021-06-21] MEDS ORDERED: ePHEDrine 50 MG/ML VIAL IVP PRN (10:09)
[2021-06-21] MEDS ORDERED: ONDANSETRON 4 MG/2 ML VIAL IVP PRN (10:09)
[2021-06-21] MEDS ORDERED: HYDROmorphone 0.5 MG/0.5 ML SYRINGE IVP PRN (10:09)
[2021-06-21] MEDS ORDERED: fentaNYL 100 MCG/2 ML VIAL IVP PRN (10:09)
[2021-06-21] MEDS ORDERED: NALOXONE 0.4 MG/ML VIAL IVP PRN (10:09)
[2021-06-21] MEDS ORDERED: LACTATED RINGERS 1,000 ML IV SCH (11:00)
--- NOTE | 2021-06-21 16:23 | ANESTHESIA POST OP EVALUATION ---
Anesthesia Post Eval - Post Anesthesia Eval Vitals: Last Vital Signs Temp 36.4 C L 06/21/21 10:05 Pulse 66 06/21/21 10:05 Resp 18 06/21/21 10:05 BP 142/69 H 06/21/21 10:05 Pulse Ox 97 06/21/21 10:05 CV Function Including HR & BP: Stable Pain Control: Satisfactory Nausea & Vomiting: Negative Mental Status: Baseline Respiratory Status: Airway Patent Hydration Status: Satisfactory Anesthesia Complications: None
== END 2021-06-21 07:09 | disposition home or self-care (01) ==
LOC: SDS 07:08
PROVIDERS: ATTEND Surgery
PROC: 0DBL8ZX Excision of Transverse Colon, Via Natural or Artificial Opening Endoscopic, Diagnostic (ICD-10-PCS; principal; 2021-06-21 08:30)
DX: R19.5 Other fecal abnormalities (principal); D12.3 Benign neoplasm of transverse colon; K57.30 Diverticulosis of large intestine without perforation or abscess without bleeding; I34.0 Nonrheumatic mitral (valve) insufficiency; I48.0 Paroxysmal atrial fibrillation; F41.9 Anxiety disorder, unspecified
CPT/HCPCS: 93005

== ENCOUNTER 2021-06-21 15:25 | Outpatient (CLI) | payer MEDICARE, OTHER | END 2021-06-21 15:26 | disposition critical access hospital (66) | LOC: EMS 15:25 | DX: R00.2 Palpitations (principal) | CPT/HCPCS: A0425; A0427 ==

== ENCOUNTER 2021-06-21 15:43 | Emergency (ER) | payer MEDICARE, OTHER ==
--- NOTE | 2021-06-21 15:53 | ED Physician Documentation ---
History of Present Illness - Stated complaint Stated Complaint: AFIB - Chief complaint Chief Complaint: Cardiac - History obtained from History obtained from: Patient - Additonal information Additional information: 76-year-old gentleman with recurrent A. fib. He was having frequent episodes of A. fib but actually has not had an episode in the last 6 months or so. He had a colonoscopy today and then had a half an hour of palpitations consistent with prior episode of atrial fibrillation. Now feeling back to normal. There is no associated chest pain or trouble breathing. Review of Systems Constitutional: denies: Fever, Chills Cardiac: reports: Palpitations. denies: Chest pain / pressure Respiratory: denies: Dyspnea, Cough PD PAST MEDICAL HISTORY - Past Medical History Cardiovascular: Hypertension, High cholesterol, Atrial fibrillation Respiratory: None Neuro: None Endocrine/Autoimmune: None GI: None, GERD, Colon polyps : None HEENT: None Psych: Anxiety, Panic attacks Musculoskeletal: None Derm: None - Past Surgical History Past Surgical History: No General: Colonoscopy Cardiovascular: Cardiac catheterization, Other HEENT: Other - Present Medications Home Medications: Ambulatory Orders Medication Instructions Recorded Confirmed Alprazolam [Xanax] 1 mg PO DAILY PRN 11/30/14 06/10/21 Atorvastatin Calcium [Lipitor] 40 mg PO DAILY 11/30/14 06/21/21 Apixaban [Eliquis] 5 mg PO DAILY 11/10/17 06/21/21 Flecainide [Tambocar] 100 mg PO BID 02/22/19 06/21/21 Metoprolol Succinate [Toprol Xl] 25 mg PO BID 02/22/19 06/21/21 lisinopriL [Zestril] 5 mg PO DAILY 06/10/21 06/21/21 - Allergies Allergies/Adverse Reactions: Allergies Allergy/AdvReac Type Severity Reaction Status Date / Time Penicillins Allergy Edema Verified 06/21/21 15:49 - Social History Does the pt smoke?: No Smoking Status: Never smoker Does the pt drink ETOH?: No Does the pt have substance abuse?: No - Immunizations Immunizations are current?: Yes - POLST Patient has POLST: No PD ED PE NORMAL - Vitals Vital signs reviewed: Yes - General General: Alert and oriented X 3, No acute distress - HEENT HEENT: PERRL, EOMI - Neck Neck: Supple, no meningeal sign, No bony TTP - Cardiac Cardiac: RRR, No murmur - Respiratory Respiratory: No respiratory distress, Clear bilaterally - Abdomen Abdomen: Non tender - Derm Derm: Normal color, Warm and dry - Extremities Extremities: No edema, No calf tenderness / cord - Neuro Neuro: Alert and oriented X 3, Normal speech Results - Vitals Vitals: Vital Signs - 24 hr 06/21/21 06/21/21 15:49 16:12 Temperature 36.8 C Heart Rate 105 H 77 Respiratory 16 16 Rate Blood Pressure 179/83 H 167/83 H O2 Saturation 98 99 Oxygen O2 Source Room air - EKG (time done) 1546 Rate: Rate (enter#) (89) Rhythm: NSR [place]: Normal Intervals: Prolonged [place] QRS: Normal Ischemia: Non specific changes (anterolateral T wave inversion unchanged from prior EKG dated 03/01/20) - Labs Labs: Laboratory Tests 06/21/21 15:58 Sodium 135 Potassium 4.0 Chloride 100 L Carbon Dioxide 24 Anion Gap 11.0 BUN 17 Creatinine 1.0 Estimated GFR (MDRD) 73 L Glucose 137 H Calcium 9.4 Magnesium 2.0 PD MEDICAL DECISION MAKING - ED course ED course: 76-year-old gentleman presents with resolved atrial fibrillation. Feeling back to normal now. We will check his electrolytes, the colonoscopy prep may have affected his potassium or magnesium which may have precipitated this event. Or it may have been from the anesthetic. Either way his symptoms have resolved and he is back in normal sinus rhythm. Departure - Departure Disposition: 01 Home, Self Care Clinical Impression: Atrial fibrillation Condition: Good Instructions: ED Afib Comments: Thankfully your atrial fibrillation has resolved. Your electrolytes look okay, magnesium 2.0 and potassium 4.0 so no need for intervention there. Continue current medications and restart your blood thinner tonight as previously instructed. Return for new or worsening symptoms.
[2021-06-21 16:14] LABS: CALCIUM 9.4 mg/dL (8.5-10.3)
[2021-06-21 16:43] VITALS: BP 161/78
== END 2021-06-21 16:38 | disposition home or self-care (01) ==
LOC: EDUNIT# → ED 15:43
DX: I48.91 Unspecified atrial fibrillation (principal); Z79.01 Long term (current) use of anticoagulants; I10 Essential (primary) hypertension; Z98.890 Other specified postprocedural states
CPT/HCPCS: 36415; 80048; 83735; 93005; 99283; 99284

== ENCOUNTER 2021-07-28 15:38 | Emergency (ER) | payer MEDICARE, OTHER ==
--- NOTE | 2021-07-28 15:46 | ED Physician Documentation ---
History of Present Illness - Stated complaint Stated Complaint: CP,BLOATED,HIGH BP - History obtained from History obtained from: Patient - Additonal information Additional information: 76-year-old gentleman with recurrent atrial fibrillation. Currently on Eliquis, metoprolol, and scheduled flecainide for same. He has had an ablation in the past which was successful for a time but then started to recurring issues. He was in his usual state of health today and started to feel bloating and weakness similar to prior episodes of A. fib. There is no associated chest pain. Review of Systems Ten Systems: 10 systems reviewed and negative Constitutional: denies: Fever, Chills Cardiac: denies: Chest pain / pressure, Pedal edema, Calf pain Respiratory: denies: Cough, Hemoptysis, Wheezing PD PAST MEDICAL HISTORY - Past Medical History Cardiovascular: Hypertension, High cholesterol, Atrial fibrillation Respiratory: None Neuro: None Endocrine/Autoimmune: None GI: None, GERD, Colon polyps : None HEENT: None Psych: Anxiety, Panic attacks Musculoskeletal: None Derm: None - Past Surgical History Past Surgical History: No General: Colonoscopy Cardiovascular: Cardiac catheterization, Other HEENT: Other - Present Medications Home Medications: Ambulatory Orders Medication Instructions Recorded Confirmed Alprazolam [Xanax] 1 mg PO DAILY PRN 11/30/14 06/10/21 Atorvastatin Calcium [Lipitor] 40 mg PO DAILY 11/30/14 06/21/21 Apixaban [Eliquis] 5 mg PO DAILY 11/10/17 06/21/21 Flecainide [Tambocar] 100 mg PO BID 02/22/19 06/21/21 Metoprolol Succinate [Toprol Xl] 25 mg PO BID 02/22/19 06/21/21 lisinopriL [Zestril] 5 mg PO DAILY 06/10/21 06/21/21 - Allergies Allergies/Adverse Reactions: Allergies Allergy/AdvReac Type Severity Reaction Status Date / Time Penicillins Allergy Severe Edema Verified 07/28/21 15:54 - Social History Does the pt smoke?: No Smoking Status: Never smoker Does the pt drink ETOH?: No Does the pt have substance abuse?: No - Immunizations Immunizations are current?: Yes - POLST Patient has POLST: No PD ED PE NORMAL - Vitals Vital signs reviewed: Yes - General General: Alert and oriented X 3, No acute distress - HEENT HEENT: PERRL, EOMI - Neck Neck: Supple, no meningeal sign, No bony TTP - Cardiac Cardiac: No murmur (Irregularly irregular and rapid) - Respiratory Respiratory: No respiratory distress, Clear bilaterally - Abdomen Abdomen: Normal bowel sounds, Soft, Non tender - Back Back: No CVA TTP, No spinal TTP - Derm Derm: Normal color, Warm and dry - Extremities Extremities: No edema, No calf tenderness / cord - Neuro Neuro: Alert and oriented X 3, Normal speech Results - Vitals Vitals: Vital Signs - 24 hr 07/28/21 07/28/21 07/28/21 15:52 16:43 17:00 Temperature 36.6 C Heart Rate 136 H 131 H 112 H Respiratory 19 15 15 Rate Blood Pressure 213/104 H 183/110 H 172/100 H O2 Saturation 97 96 98 07/28/21 07/28/21 07/28/21 17:17 17:19 17:29 Temperature Heart Rate 113 H 72 113 H Respiratory 14 16 20 Rate Blood Pressure 166/100 H 139/73 H O2 Saturation 100 96 07/28/21 17:30 Temperature 36.5 C Heart Rate 77 Respiratory 16 Rate Blood Pressure 128/86 H O2 Saturation 100 Oxygen O2 Source Room air - EKG (time done) 1545 Rate: Rate (enter#) (124) Rhythm: Atrial fibrillation [place]: Normal QRS: Normal Ischemia: Non specific changes. No: ST elevation c/w ischemia, ST elevation c/w repol, ST depression - Labs Labs: Laboratory Tests 07/28/21 07/28/21 15:50 15:50 WBC 11.0 H RBC 4.65 L Hgb 14.6 Hct 42.5 MCV 91.4 MCH 31.4 H MCHC 34.4 RDW 13.3 Plt Count 282 MPV 10.5 Neut # (Auto) 6.3 Lymph # (Auto) 3.4 [place] # (Auto) 1.1 H Eos # (Auto) 0.1 Baso # (Auto) 0.1 Absolute Nucleated RBC 0.00 Nucleated RBC % 0.0 Sodium 135 Potassium 3.6 Chloride 103 Carbon Dioxide 22 Anion Gap 10.0 BUN 27 H Creatinine 1.1 Estimated GFR (MDRD) 65 L Glucose 125 H Calcium 9.2 Magnesium 2.2 Procedures - Procedural sedation Sedation prep: Informed consent, Time out completed, Last meal (12p), ASA 2 - mild disease Sedation Medications: propofol (100mg IVP) Mallampati classification: I Patient status during sedation: Responds to tactile Sedation recovery: Recovered uneventfully Time in sedation (Minutes): 15 - Cardioversion 1 Time of attempt: 17:18 Indication: Tachyarrhythmia Risks, benefits, alternatives explained to: Pt Prep: IV, O2, monitoring and evaluation advisor, Pulse ox, Airway equip CS via: AP approach Sync: Biphasic (Initially tried at 100 J which was ineffective, he converted with a second shock at 150 J.) Post cardioversion rhythm: NSR Performed by: ED MD MEDICAL DECISION MAKING - ED course ED course: 76-year-old gentleman with recurrent rapid atrial fibrillation which is symptomatic having started just prior to arrival and he is fully anticoagulated on a DOAC. Attended to and given some IV metoprolol and magnesium with borderline rate control but no rhythm control and he was still quite symptomatic and requested cardioversion. Cardioversion electrically was done without issue with conversion and symptomatic relief. Departure - Departure Disposition: 01 Home, Self Care Clinical Impression: Atrial fibrillation Qualifiers: Atrial fibrillation type: paroxysmal Qualified Code(s): I48.0 - Paroxysmal atrial fibrillation Condition: Good Record reviewed to determine appropriate education?: Yes Instructions: ED Paroxysmal Atrial Flutter Comments: Follow-up with your director [employer], call tomorrow for an appointment. Let him know that you were in symptomatic short lasting paroxysmal atrial fibrillation here and were cardioverted out on the second shock at 150 J. Return for any worsening symptoms. Do not drive today.
[2021-07-28] MEDS ORDERED: METOPROLOL 5 MG/5 ML VIAL IVP STA (15:54)
[2021-07-28] MEDS ORDERED: MAGNESIUM SULFATE 2 GRAM 2 GM/50 ML BAG IV ONE (15:54)
[2021-07-28 15:58] LABS: BASOPHILS # (AUTO) 0.1 10^3/uL (0.0-0.1); BASOPHILS % (AUTO) 0.9 %; EOSINOPHILS # (AUTO) 0.1 10^3/uL (0.0-0.7); EOSINOPHILS % (AUTO) 1.3 %; HCT - HEMATOCRIT 42.5 % (42.0-52.0); HGB - HEMOGLOBIN 14.6 g/dL (14.0-18.0); LYMPHOCYTES # (AUTO) 3.4 10^3/uL (1.5-3.5); LYMPHOCYTES % (AUTO) 30.7 %; MEAN CORPUSCULAR HEMOGLOBIN 31.4 pg (27.0-31.0); MEAN CORPUSCULAR HGB CONC 34.4 g/dL (32.0-36.0); MEAN CORPUSCULAR VOLUME 91.4 fL (80.0-94.0); MEAN PLATELET VOLUME 10.5 fL (7.4-11.4); MONOCYTES # (AUTO) 1.1 10^3/uL (0.0-1.0); MONOCYTES % (AUTO) 9.5 %; NEUTROPHILS # (AUTO) 6.3 10^3/uL (1.5-6.6); NEUTROPHILS % (AUTO) 57.2 %; PLT - PLATELET COUNT 282 10^3/uL (130-450); RED BLOOD COUNT 4.65 10^6/uL (4.70-6.10); RED CELL DISTRIBUTION WIDTH 13.3 % (12.0-15.0)
[2021-07-28 16:05] LABS: CALCIUM 9.2 mg/dL (8.5-10.3); CREATININE 1.1 mg/dL (0.6-1.2); MAGNESIUM 2.2 mg/dL (1.7-2.8); POTASSIUM 3.6 mmol/L (3.5-5.0)
[2021-07-28] MEDS ORDERED: PROPOFOL 200 MG/20 ML VIAL IVP STA (16:36)
[2021-07-28 17:33] VITALS: BP 128/86
== END 2021-07-28 17:55 | disposition home or self-care (01) ==
LOC: ED 15:38
DX: I48.0 Paroxysmal atrial fibrillation (principal); Z79.01 Long term (current) use of anticoagulants; I10 Essential (primary) hypertension
CPT/HCPCS: 36415; 80048; 83735; 85025; 92960; 93005; 94770; 99152; 99283

== ENCOUNTER 2021-11-15 19:37 | Outpatient (CLI) | payer MEDICARE, OTHER | END 2021-11-15 19:38 | disposition critical access hospital (66) | LOC: EMS 19:37 | DX: I48.91 Unspecified atrial fibrillation (principal) | CPT/HCPCS: A0425; A0429 ==

== ENCOUNTER 2021-11-15 19:57 | Emergency (ER) | payer MEDICARE, OTHER ==
[2021-11-15] MEDS ORDERED: METOPROLOL 5 MG/5 ML VIAL IVP STA (20:15)
[2021-11-15 20:26] LABS: BASOPHILS # (AUTO) 0.1 10^3/uL (0.0-0.1); BASOPHILS % (AUTO) 1.2 %; EOSINOPHILS # (AUTO) 0.2 10^3/uL (0.0-0.7); EOSINOPHILS % (AUTO) 2.4 %; HCT - HEMATOCRIT 43.1 % (42.0-52.0); HGB - HEMOGLOBIN 14.7 g/dL (14.0-18.0); LYMPHOCYTES # (AUTO) 3.4 10^3/uL (1.5-3.5); LYMPHOCYTES % (AUTO) 40.2 %; MEAN CORPUSCULAR HEMOGLOBIN 31.5 pg (27.0-31.0); MEAN CORPUSCULAR HGB CONC 34.1 g/dL (32.0-36.0); MEAN CORPUSCULAR VOLUME 92.3 fL (80.0-94.0); MEAN PLATELET VOLUME 10.2 fL (7.4-11.4); NEUTROPHILS # (AUTO) 3.7 10^3/uL (1.5-6.6); NEUTROPHILS % (AUTO) 43.8 %; PLT - PLATELET COUNT 274 10^3/uL (130-450); RED BLOOD COUNT 4.67 10^6/uL (4.70-6.10); RED CELL DISTRIBUTION WIDTH 13.2 % (12.0-15.0); WHITE BLOOD COUNT 8.5 x10^3/uL (4.8-10.8)
--- NOTE | 2021-11-15 20:38 | ED Physician Documentation ---
PD HPI CHEST PAIN - Stated complaint Stated Complaint: A FIB/L SHOULDER PX - Chief complaint Chief Complaint: Cardiac - History obtained from History obtained from: Patient - Additional information Additional information: 76-year-old gentleman with history of atrial fibrillation. He is currently on Eliquis, metoprolol and scheduled flecainide. He had an ablation in the past which actually kept him out of A. fib but started having paroxysmal A. fib again a few months ago. Around 6 PM tonight he was in his usual state of health talking to his and he felt his typical A. fib symptom which is an epigastric ball with burning going up into the chest. He checked his heart rate with his phone and it was between 130-160 and came in by ambulance for further evaluation and treatment. Review of Systems Ten Systems: 10 systems reviewed and negative Constitutional: reports: Reviewed and negative Nose: reports: Reviewed and negative Throat: reports: Reviewed and negative PD PAST MEDICAL HISTORY - Past Medical History Cardiovascular: Hypertension, High cholesterol, Atrial fibrillation Respiratory: None Neuro: None Endocrine/Autoimmune: None GI: None, GERD, Colon polyps : None HEENT: None Psych: Anxiety, Panic attacks Musculoskeletal: None Derm: None - Past Surgical History Past Surgical History: No General: Colonoscopy Cardiovascular: Cardiac catheterization, Other HEENT: Other - Present Medications Home Medications: Ambulatory Orders Medication Instructions Recorded Confirmed Alprazolam [Xanax] 1 mg PO DAILY PRN 11/30/14 06/10/21 Atorvastatin Calcium [Lipitor] 40 mg PO DAILY 11/30/14 06/21/21 Apixaban [Eliquis] 5 mg PO DAILY 11/10/17 06/21/21 Flecainide [Tambocar] 100 mg PO BID 02/22/19 06/21/21 Metoprolol Succinate [Toprol Xl] 25 mg PO BID 02/22/19 06/21/21 lisinopriL [Zestril] 5 mg PO DAILY 06/10/21 06/21/21 - Allergies Allergies/Adverse Reactions: Allergies Allergy/AdvReac Type Severity Reaction Status Date / Time Penicillins Allergy Severe Edema Verified 11/15/21 20:02 - Social History Does the pt smoke?: No Smoking Status: Never smoker Does the pt drink ETOH?: No Does the pt have substance abuse?: No - Immunizations Immunizations are current?: Yes - POLST Patient has POLST: No PD ED PE NORMAL - Vitals Vital signs reviewed: Yes - General General: Alert and oriented X 3, No acute distress, Other (At the time of my evaluation he actually had just converted spontaneously back into sinus rhythm and feels better.) - Cardiac Cardiac: RRR, No murmur - Respiratory Respiratory: No respiratory distress, Clear bilaterally - Back Back: No CVA TTP, No spinal TTP - Derm Derm: Normal color, Warm and dry - Extremities Extremities: No edema, No calf tenderness / cord - Neuro Neuro: Alert and oriented X 3, Normal speech Results - Vitals Vitals: Vital Signs - 24 hr 11/15/21 11/15/21 11/15/21 20:02 20:06 20:16 Temperature 36.5 C 36.5 C Heart Rate 120 H 120 H 118 H Respiratory 20 20 15 Rate Blood Pressure 150/100 H 150/100 H 199/106 H O2 Saturation 98 98 98 11/15/21 11/15/21 20:36 20:47 Temperature 36.5 C Heart Rate 118 H 66 Respiratory 14 16 Rate Blood Pressure 146/74 H 139/75 H O2 Saturation 97 98 Oxygen O2 Source Room air - EKG (time done) 2002 Rate: Rate (enter#) (131) Rhythm: Atrial fibrillation Intervals: Prolonged QT Ischemia: T wave inversion (lateral/inf). No: ST elevation c/w ischemia, ST depression - Labs Labs: Laboratory Tests 11/15/21 11/15/21 11/15/21 20:18 20:18 20:18 WBC 8.5 RBC 4.67 L Hgb 14.7 Hct 43.1 MCV 92.3 MCH 31.5 H MCHC 34.1 RDW 13.2 Plt Count 274 MPV 10.2 Neut # (Auto) 3.7 Lymph # (Auto) 3.4 [place] # (Auto) 1.0 Eos # (Auto) 0.2 Baso # (Auto) 0.1 Absolute Nucleated RBC 0.00 Nucleated RBC % 0.0 Sodium 134 L Potassium 3.7 Chloride 102 Carbon Dioxide 22 Anion Gap 10.0 BUN 23 H Creatinine 1.0 Estimated GFR (MDRD) 73 L Glucose 138 H Calcium 9.6 Magnesium 1.9 Total Bilirubin 0.4 AST 32 ALT 32 Alkaline Phosphatase 69 Troponin I High Sens 7.8 Total Protein 7.4 Albumin 3.9 Globulin 3.5 Albumin/Globulin Ratio 1.1 Lipase 38 PD MEDICAL DECISION MAKING - ED course ED course: 76-year-old gentleman with history of paroxysmal atrial fibrillation. On arrival chart was reviewed and I ordered labs and a dose of IV metoprolol, in the past he has required electrical cardioversion for similar symptoms. I was attending to other patients while this process was ongoing but prior to the administration of the IV metoprolol the patient spontaneously converted into sinus rhythm with resolution of his symptoms. His magnesium and potassium while not technically low, on the low end of normal, he is administered oral supplementation of both that this that may help prevent recurrence of his arrhythmia. Departure - Departure Disposition: 01 Home, Self Care Clinical Impression: Atrial fibrillation Qualifiers: Atrial fibrillation type: paroxysmal Qualified Code(s): I48.0 - Paroxysmal atrial fibrillation Condition: Good Record reviewed to determine appropriate education?: Yes Instructions: ED Paroxysmal Atrial Flutter Comments: Mr. Ferrer, you were seen today for atrial fibrillation. Thankfully it converted back to normal sinus rhythm without any specific treatment. Your labs were normal, that said your potassium and magnesium were on the low end of normal. Most cardiologists feel that having them on the high end of normal may help prevent further arrhythmias so he received a dose of magnesium and potassium here. Return for new or worsening symptoms.
[2021-11-15 20:40] LABS: ALBUMIN 3.9 g/dL (3.2-5.5); ALBUMIN/GLOBULIN RATIO 1.1 (1.0-2.2); BILIRUBIN,TOTAL 0.4 mg/dL (0.2-1.0); CALCIUM 9.6 mg/dL (8.5-10.3); MAGNESIUM 1.9 mg/dL (1.7-2.8); POTASSIUM 3.7 mmol/L (3.5-5.0); TOTAL PROTEIN 7.4 g/dL (6.7-8.2)
[2021-11-15 20:48] VITALS: BP 139/75
[2021-11-15] MEDS ORDERED: MAGNESIUM OXIDE 400 MG TABLET PO STA (20:59)
[2021-11-15] MEDS ORDERED: POTASSIUM CHLORIDE 20 MEQ TABLET PO STA (20:59)
== END 2021-11-15 21:09 | disposition home or self-care (01) ==
LOC: EDUNIT# → ED 19:57
DX: I48.0 Paroxysmal atrial fibrillation (principal); Z79.01 Long term (current) use of anticoagulants; I10 Essential (primary) hypertension
CPT/HCPCS: 36415; 80053; 83690; 83735; 84484; 85025; 93005; 99284; A9270

== ENCOUNTER 2021-11-30 09:56 | Outpatient (CLI) | payer MEDICARE, OTHER ==
[2021-11-30 12:26] LABS: CALCIUM 9.7 mg/dL (8.5-10.3); CREATININE 1.1 mg/dL (0.6-1.2); MAGNESIUM 2.2 mg/dL (1.7-2.8); POTASSIUM 4.5 mmol/L (3.5-5.0)
== END 2021-11-30 09:57 | disposition home or self-care (01) ==
LOC: LAB.N 09:56
PROVIDERS: ATTEND Internal Medicine Cardiovascular Disease
DX: I48.0 Paroxysmal atrial fibrillation (principal)
CPT/HCPCS: 36415; 80048; 83735

== ENCOUNTER 2021-12-22 13:46 | Outpatient (CLI) | payer MEDICARE, OTHER ==
[2021-12-22 17:57] LABS: ALBUMIN 3.9 g/dL (3.2-5.5); ALBUMIN/GLOBULIN RATIO 1.3 (1.0-2.2); BILIRUBIN,TOTAL 0.5 mg/dL (0.2-1.0); CALCIUM 9.6 mg/dL (8.5-10.3); CREATININE 1.3 mg/dL (0.6-1.2); POTASSIUM 4.7 mmol/L (3.5-5.0)
[2021-12-22 18:09] LABS: THYROID STIMULATING HORMONE 0.95 uIU/mL (0.34-5.60)
[2021-12-22 18:11] LABS: FREE T4 (FREE THYROXINE) 1.07 ng/dL (0.58-1.64)
== END 2021-12-22 13:47 | disposition home or self-care (01) ==
LOC: LAB.N 13:46
PROVIDERS: ATTEND Nurse Practitioner Acute Care
DX: I48.0 Paroxysmal atrial fibrillation (principal); Z51.81 Encounter for therapeutic drug level monitoring; Z79.899 Other long term (current) drug therapy
CPT/HCPCS: 36415; 80053; 84439; 84443

== ENCOUNTER 2022-01-06 06:43 | Day surgery (SDC) | payer MEDICARE, OTHER ==
[~2022-01-06 06:43] MED LIST: CYCLOPENTOLATE 1% OPHTH DROPS 2 ML ONE; KETOROLAC 0.45% OPHTH DROPS ONE; PHENYLEPHRINE 2.5% OPHTH 2 ML DROPS ONE; PROPARACAINE 0.5% OPHTH DROPS 15 ML ONE
[2022-01-06] MEDS ORDERED: LACTATED RINGERS 1,000 ML IV ONE ×2 (07:25→08:30)
--- NOTE | 2022-01-06 07:55 | ANESTHESIA ---
Pre-Anesthesia VS, & Labs - Diagnosis senile cataract - Procedure cataract extraction with IOL left eye Vital Signs: Temp Pulse Resp BP Pulse Ox 36.4 C L 60 16 172/93 H 97 01/06/22 07:08 01/06/22 07:08 01/06/22 07:08 01/06/22 07:08 01/06/22 07:08 Height: 6 ft 1 in Weight (kg): 97.1 kg Body Mass Index: 28.2 BMI Classification: Overweight - NPO >8 hours Home Medications and Allergies Alprazolam [Xanax] 1 mg PO DAILY PRN 11/30/14 Atorvastatin Calcium [Lipitor] 40 mg PO DAILY 11/30/14 Apixaban [Eliquis] 5 mg PO DAILY 11/10/17 Flecainide [Tambocar] 100 mg PO BID 02/22/19 Metoprolol Succinate [Toprol Xl] 25 mg PO BID 02/22/19 lisinopriL [Zestril] 5 mg PO DAILY 06/10/21 Allergies/Adverse Reactions: Allergies Allergy/AdvReac Type Severity Reaction Status Date / Time Penicillins Allergy Severe Anaphylaxis Verified 01/06/22 07:34 Anes History & Medical History - Anesthetic History Anesthesia Complications: reports: No previous complications - Medical History Cardiovascular: reports: Hypertension, High cholesterol, Atrial fibrillation Pulmonary: reports: None Gastrointestinal: reports: None, GERD, Colon polyps Urinary: reports: None Neuro: reports: None Musculoskeletal: reports: None Endocrine/Autoimmune: reports: None Blood Disorders: reports: None, Polycythemia vera Skin: reports: None Smoking Status: Never smoker History of Cancer?: No - Surgical History General: reports: Colonoscopy Eyes Ears Nose Throat (EENT): reports: Other Cardiothoracic: reports: Cardiac catheterization (ablation), Other Urologic: reports: Ureterolithotomy (stones), Testicular surgery Exam General: Alert, Oriented x3 Dental: WNL Mouth Opening: Greater than 4 Fingerbreadths Neck Mobility: Normal Mallampati classification: II Thyromental Distance: greater than 6 cm Respiratory: Lungs clear Cardiovascular: Regular rate Plan Anesthesia Type: Total IV Consent for Procedure(s) Verified and Reviewed: Yes Code Status: Attempt Resuscitation ASA classification: 3-Severe systemic disease Is this case an emergency?: No
[2022-01-06] MEDS ORDERED: TIMOLOL 0.5% OPHTH DROPS OPTH ONE (08:26)
[2022-01-06] MEDS ORDERED: BRIMONIDINE 0.2% OPHTH DROPS 5 ML OPTH ONE (08:26)
[2022-01-06] MEDS ORDERED: EPINEPHrine 1 MG/ML AMP IR ONE (08:26)
[2022-01-06] MEDS ORDERED: VANCOMYCIN OPHTH (TOPICAL) 10 MG/ML SYRINGE TOP ONE (08:27)
[2022-01-06] MEDS ORDERED: PROPARACAINE 0.5% OPHTH DROPS 15 ML LEFTEYE ONE (08:27)
[2022-01-06] MEDS ORDERED: PROPARACAINE 0.5% OPHTH DROPS 15 ML EACHEYE ONE (08:27)
[2022-01-06] MEDS ORDERED: BSS/LIDOCAINE/EPINEPHRINE 1 ML SYRINGE IO ONE (08:27)
[2022-01-06] MEDS ORDERED: TRIAMCIN/MOXIFLOX OPHTHALMIC 0.6 ML VIAL IO ONE ×2 (08:27→09:27)
[2022-01-06] MEDS ORDERED: MIDAZOLAM 2 MG/2 ML VIAL ONE (08:32)
--- NOTE | 2022-01-06 08:40 | OPERATIVE REPORT ---
Operative Report - Other Other Information/Narrative: Date of Surgery: 01/06/22 Preop Dx: Visually significant cataract left eye. This was the first cataract surgery. Postop Dx: Same Procedure: Phacoemulsification with posterior chamber intraocular lens implant left eye Surgeon: Dr. John Dee Anesthesia: Monitored anesthesia care Complications: None Operative Indications: This is a 76-year-old M with progressive vision loss in the left eye due to 3+ nuclear sclerotic and 3+ cortical cataract. Best corrected visual acuity was 20/30 with glare to 20/150 vision in the left eye. Indications for surgery were: - Overall decrease in vision - Difficulty driving in low light or at night - Difficulty driving at night because of headlights from other vehicles - Difficulty tracking a golf ball The patient was consented at length concerning the risks and benefits of cataract surgery after which the patient expressed a desire to proceed with surgery. Operative Procedure: The patient was taken into OR#3 and placed under monitored anesthesia care. A surgical time-out was conducted confirming correct patient, correct procedure, and correct surgical site. The patient was given topical anesthesia and then prepped and draped in the usual sterile fashion. The eye was entered at the 6 and 3 oclock positions. Intracameral Shugarcaine was injected into the anterior chamber followed by a dispersive viscoelastic. A continuous-tear curvilinear capsulorhexis was performed. The nucleus was hydrodissected and phacoemulsified. The cortex was evacuated using automated infusion and aspiration. A cohesive viscoelastic was injected into the capsular bag and a 17.0 diopter intraocular lens was inserted into the bag. Infusion and aspiration were used to evacuate the viscoelastic materials from the eye. The wo unds were hydrated and the eye inflated to physiologic pressure using balanced salt solution. Approximately 0.25ml of a mixture of triamcinolone and moxifloxacin was injected trans-sclerally into the vitreous in the inferotemporal quadrant using a 30 gauge cannula. An additional 0.55ml of a mixture of triamcinolone and moxifloxacin was injected subconjunctivally in the superior quadrant for infection and inflammation prophylaxis. Wound integrity was checked with Weck-Jody sponges. The patient was taken from the operating room in good condition and given post-op instructions.
[2022-01-06 08:48] VITALS: BP 115/57
[2022-01-06] MEDS ORDERED: TIMOLOL 0.5% OPHTH DROPS ONE (09:27)
[2022-01-06] MEDS ORDERED: BRIMONIDINE 0.2% OPHTH DROPS 5 ML ONE (09:27)
[2022-01-06] MEDS ORDERED: EPINEPHrine 1 MG/ML AMP ONE (09:27)
[2022-01-06] MEDS ORDERED: BSS/LIDOCAINE/EPINEPHRINE 1 ML VIAL ONE (09:28)
--- NOTE | 2022-01-06 09:37 | ANESTHESIA POST OP EVALUATION ---
Anesthesia Post Eval - Post Anesthesia Eval Vitals: Last Vital Signs Temp 36.6 C 01/06/22 08:30 Pulse 52 L 01/06/22 08:46 Resp 17 01/06/22 08:46 BP 115/57 L 01/06/22 08:46 Pulse Ox 95 01/06/22 08:46 CV Function Including HR & BP: Stable Pain Control: Satisfactory Nausea & Vomiting: Negative Mental Status: Baseline Respiratory Status: Airway Patent Hydration Status: Satisfactory Anesthesia Complications: None
== END 2022-01-06 06:44 | disposition home or self-care (01) ==
LOC: SDS 06:43
PROVIDERS: ATTEND Ophthalmology
DX: H25.812 Combined forms of age-related cataract, left eye (principal); I48.91 Unspecified atrial fibrillation
CPT/HCPCS: 66984; A9270; J3490; J7120

== ENCOUNTER 2022-02-03 06:51 | Day surgery (SDC) | payer MEDICARE, OTHER ==
[2022-02-03] MEDS ORDERED: BRIMONIDINE 0.2% OPHTH DROPS 5 ML ONE (07:15)
[2022-02-03] MEDS ORDERED: TRIAMCIN/MOXIFLOX OPHTHALMIC 0.6 ML VIAL IO ONE ×3 (07:15→08:12)
[2022-02-03] MEDS ORDERED: TIMOLOL 0.5% OPHTH DROPS ONE (07:15)
[2022-02-03] MEDS ORDERED: VANCOMYCIN OPHTH (TOPICAL) 10 MG/ML SYRINGE ONE (07:15)
[2022-02-03] MEDS ORDERED: BSS/LIDOCAINE/EPINEPHRINE 1 ML VIAL ONE (07:15)
[2022-02-03] MEDS ORDERED: LACTATED RINGERS 1,000 ML IV ONE (07:37)
[2022-02-03] MEDS ORDERED: MIDAZOLAM 2 MG/2 ML VIAL ONE (07:59)
[2022-02-03] MEDS ORDERED: BRIMONIDINE 0.2% OPHTH DROPS 5 ML OPTH ONE (08:10)
[2022-02-03] MEDS ORDERED: EPINEPHrine 1 MG/ML AMP IR ONE (08:10)
[2022-02-03] MEDS ORDERED: BSS/LIDOCAINE/EPINEPHRINE 1 ML SYRINGE IO ONE (08:11)
[2022-02-03] MEDS ORDERED: TIMOLOL 0.5% OPHTH DROPS OPTH ONE (08:11)
[2022-02-03] MEDS ORDERED: PROPARACAINE 0.5% OPHTH DROPS 15 ML EACHEYE ONE (08:12)
[2022-02-03] MEDS ORDERED: VANCOMYCIN OPHTH (TOPICAL) 10 MG/ML SYRINGE TOP ONE (08:12)
[2022-02-03] MEDS ORDERED: LACTATED RINGERS 950 ML IV ONE (08:37)
--- NOTE | 2022-02-03 08:39 | ANESTHESIA ---
Pre-Anesthesia VS, & Labs Height: 6 ft 1 in Weight (kg): 97 kg Body Mass Index: 28.2 BMI Classification: Overweight - NPO >8 hours (solids) - Lab Results Lab results reviewed: Yes <Sy Cm - Last Filed: 02/03/22 07:29> - Diagnosis R senile combined cataract (Sy Cm) - Procedure R extraction cataract w/IOL (Sy Cm) Vital Signs: Temp Pulse Resp BP Pulse Ox 36.2 C L 55 L 16 165/77 H 97 02/03/22 07:07 02/03/22 07:07 02/03/22 07:07 02/03/22 07:07 02/03/22 07:07 Home Medications and Allergies <Sy Cm P - Last Filed: 02/03/22 07:29> <Irish Velazquez - Last Filed: 02/03/22 07:53> Alprazolam [Xanax] 1 mg PO DAILY PRN 11/30/14 Atorvastatin Calcium [Lipitor] 40 mg PO DAILY 11/30/14 Apixaban [Eliquis] 5 mg PO DAILY 11/10/17 Flecainide [Tambocar] 100 mg PO BID 02/22/19 Metoprolol Succinate [Toprol Xl] 25 mg PO BID 02/22/19 lisinopriL [Zestril] 5 mg PO DAILY 06/10/21 Allergies/Adverse Reactions: Allergies Allergy/AdvReac Type Severity Reaction Status Date / Time Penicillins Allergy Severe Anaphylaxis Verified 02/03/22 07:16 Anes History & Medical History - Anesthetic History Anesthesia Complications: reports: No previous complications Family history of Anesthesia Complications: Denies Family history of Malignant Hyperthermia: Denies - Medical History Cardiovascular: reports: Hypertension, High cholesterol, Atrial fibrillation Pulmonary: reports: None Gastrointestinal: reports: None, GERD, Colon polyps Urinary: reports: None Neuro: reports: None Musculoskeletal: reports: None Endocrine/Autoimmune: reports: None Blood Disorders: reports: None, Polycythemia vera Skin: reports: None Smoking Status: Never smoker - Surgical History General: reports: Colonoscopy Eyes Ears Nose Throat (EENT): reports: Cataracts, Other Cardiothoracic: reports: Cardiac catheterization, Other Urologic: reports: Ureterolithotomy (stones), Testicular surgery <Sy Cm - Last Filed: 02/03/22 07:29> Exam General: Alert, Oriented x3, Cooperative Mouth Openin Fingerbreadth Neck Mobility: Normal Mallampati classification: II Thyromental Distance: 4-6 cm Respiratory: Lungs clear, Normal breath sounds, No respiratory distress Neurological: Normal speech Mental/Cognitive Status: Alert/Oriented X3, Normal for patient Cognitive Status: Within normal limits <Sy Cm P - Last Filed: 02/03/22 07:29> General: Alert, Oriented x3, Cooperative Dental: WNL Neck Mobility: Normal (Sinus Rythym currently) Mallampati classification: II Respiratory: Lungs clear Cardiovascular: Regular rate, Normal S1, Normal S2 <Irish Velazquez E - Last Filed: 02/03/22 07:53> Plan Anesthesia Type: MAC Consent for Procedure(s) Verified and Reviewed: Yes Code Status: Attempt Resuscitation ASA classification: 3-Severe systemic disease Is this case an emergency?: No <Sy Cm P - Last Filed: 02/03/22 07:29>
--- NOTE | 2022-02-03 08:47 | OPERATIVE REPORT ---
Operative Report - Other Other Information/Narrative: Date of Surgery: 02/03/22 Preop Dx: Visually significant cataract right eye. Cataract surgery was performed in the left eye on . Postop Dx: Same Procedure: Phacoemulsification with posterior chamber toric intraocular lens implant right eye Surgeon: Dr. John Dee Anesthesia: Monitored anesthesia care Complications: None Operative Indications: This is a 76-year-old M with progressive vision loss in the right eye due to 3+ nuclear sclerotic, 2+ cortical, and trace posterior subcapsular cataract. Best corrected visual acuity was 20/30 with glare to 20/80 vision in the right eye. Indications for surgery were: - Overall decrease in vision - Difficulty with glare or bright lights in any situation - Difficulty tracking a golf ball The patient was consented at length concerning the risks and benefits of cataract surgery after which the patient expressed a desire to proceed with surgery. Operative Procedure: The patients cornea was marked in the pre-surgical area to indicate the axis for the toric intraocular lens. The patient was taken into OR#3 and placed under monitored anesthesia care. A surgical time-out was conducted confirming correct patient, correct procedure, and correct surgical site. The patient was given topical anesthesia and then prepped and draped in the usual sterile fashion. The eye was entered at the 6 and 3 oclock positions. Intracameral Shugarcaine was injected into the anterior chamber followed by a dispersive viscoelastic. A continuous-tear curvilinear capsulorhexis was performed. The nucleus was hydrodissected and phacoemulsified. The cortex was evacuated using automated infusion and aspiration. A cohesive viscoelastic was injected into the capsular bag and a 16.5 diopter toric intraocular lens was inserted into the bag and rotated to axis 106. Infusion and aspiration were used to evacuate the viscoelastic materials from the eye and the IOL was verified to remain on axis. The wounds were hydrated and the eye inflated to physiologic pressure using balanced salt solution. Approximately 0.25ml of a mixture of triamcinolone and moxifloxacin was injected trans- sclerally into the vitreous in the inferotemporal quadrant using a 30 gauge cannula. An additional 0.55ml of a mixture of triamcinolone and moxifloxacin was injected subconjunctivally in the superior quadrant for infection and inflam mation prophylaxis. Wound integrity was checked with Weck-Jody sponges and the IOL axis was once again verified to be on the correct axis. The patient was taken from the operating room in good condition and given post-op instructions.
[2022-02-03 08:49] VITALS: BP 116/58
--- NOTE | 2022-02-03 09:15 | ANESTHESIA POST OP EVALUATION ---
Anesthesia Post Eval - Post Anesthesia Eval Vitals: Last Vital Signs Temp 36.3 C L 02/03/22 08:32 Pulse 52 L 02/03/22 08:48 Resp 14 02/03/22 08:48 BP 116/58 L 02/03/22 08:48 Pulse Ox 98 02/03/22 08:48 CV Function Including HR & BP: Stable Pain Control: Satisfactory Nausea & Vomiting: Negative Mental Status: Baseline Respiratory Status: Airway Patent Hydration Status: Satisfactory Anesthesia Complications: None
== END 2022-02-03 06:52 | disposition home or self-care (01) ==
LOC: SDS 06:51
PROVIDERS: ATTEND Ophthalmology
DX: H25.811 Combined forms of age-related cataract, right eye (principal); Z98.42 Cataract extraction status, left eye; I48.91 Unspecified atrial fibrillation; Z79.01 Long term (current) use of anticoagulants
CPT/HCPCS: 66984; A9270; J3490; J7120; V2632

== ENCOUNTER 2022-04-15 07:27 | Outpatient (CLI) | payer MEDICARE, OTHER ==
[2022-04-15 12:26] LABS: ALT ALANINE AMINOTRANSFERASE 31 IU/L (10-60); CHOL/HDL RATIO 3.3 (<5.0); CHOLESTEROL 206 mg/dL; HDL CHOLESTEROL 62 mg/dL; LDL CHOLESTEROL,CALCULATED 128 mg/dL; LDL/HDL RATIO 2.1 (<3.6); TRIGLYCERIDES 78 mg/dL; VLDL CHOLESTEROL 16 mg/dL
[2022-04-15 12:27] LABS: ESTIMATED AVERAGE GLUCOSE 123 mg/dL (70-100); HEMOGLOBIN A1c% 5.9 % (4.27-6.07)
[2022-04-15 12:34] LABS: CALCIUM 9.2 mg/dL (8.5-10.3); POTASSIUM 4.6 mmol/L (3.5-5.0)
[2022-04-15 12:36] LABS: THYROID STIMULATING HORMONE 1.58 uIU/mL (0.34-5.60)
== END 2022-04-15 07:28 | disposition home or self-care (01) ==
LOC: LAB.N 07:27
PROVIDERS: ATTEND Nurse Practitioner Acute Care
DX: E78.5 Hyperlipidemia, unspecified (principal); Z51.81 Encounter for therapeutic drug level monitoring; R73.01 Impaired fasting glucose; Z12.5 Encounter for screening for malignant neoplasm of prostate; I48.92 Unspecified atrial flutter; Z79.899 Other long term (current) drug therapy
CPT/HCPCS: 36415; 80048; 80061; 83036; 84443; 84460; G0103; 83721; 84153

== ENCOUNTER 2022-10-04 08:41 | Outpatient (CLI) | payer MEDICARE, OTHER ==
[2022-10-04 11:57] LABS: BASOPHILS # (AUTO) 0.1 10^3/uL (0.0-0.1); BASOPHILS % (AUTO) 1.2 %; EOSINOPHILS # (AUTO) 0.4 10^3/uL (0.0-0.7); EOSINOPHILS % (AUTO) 5.5 %; HCT - HEMATOCRIT 42.1 % (42.0-52.0); HGB - HEMOGLOBIN 14.1 g/dL (14.0-18.0); LYMPHOCYTES # (AUTO) 2.3 10^3/uL (1.5-3.5); LYMPHOCYTES % (AUTO) 33.7 %; MEAN CORPUSCULAR HEMOGLOBIN 30.5 pg (27.0-31.0); MEAN CORPUSCULAR HGB CONC 33.5 g/dL (32.0-36.0); MEAN CORPUSCULAR VOLUME 90.9 fL (80.0-94.0); MEAN PLATELET VOLUME 11.2 fL (7.4-11.4); MONOCYTES # (AUTO) 0.8 10^3/uL (0.0-1.0); MONOCYTES % (AUTO) 11.8 %; NEUTROPHILS # (AUTO) 3.2 10^3/uL (1.5-6.6); NEUTROPHILS % (AUTO) 47.5 %; PLT - PLATELET COUNT 280 10^3/uL (130-450); RED BLOOD COUNT 4.63 10^6/uL (4.70-6.10); RED CELL DISTRIBUTION WIDTH 13.6 % (12.0-15.0); WHITE BLOOD COUNT 6.8 x10^3/uL (4.8-10.8)
[2022-10-04 12:18] LABS: ALBUMIN 3.8 g/dL (3.2-5.5); ALBUMIN/GLOBULIN RATIO 1.2 (1.0-2.2); ALKALINE PHOSPHATASE 54 IU/L (42-121); ALT ALANINE AMINOTRANSFERASE 28 IU/L (10-60); AST ASPARTATE AMINOTRANSFERASE 28 IU/L (10-42); BILIRUBIN,TOTAL 0.7 mg/dL (0.2-1.0); BUN - BLOOD UREA NITROGEN 21 mg/dL (6-20); CALCIUM 9.6 mg/dL (8.5-10.3); CARBON DIOXIDE - CO2 26 mmol/L (21-32); CHLORIDE 107 mmol/L (101-111); CHOLESTEROL 189 mg/dL; GFR - MDRD 73 (>89); GLUCOSE 116 mg/dL (70-100); HDL CHOLESTEROL 64 mg/dL; LDL CHOLESTEROL,CALCULATED 109 mg/dL; LDL/HDL RATIO 1.7 (<3.6); POTASSIUM 4.6 mmol/L (3.5-5.0); SODIUM 140 mmol/L (135-145); TRIGLYCERIDES 81 mg/dL; VLDL CHOLESTEROL 16 mg/dL
[2022-10-04 12:22] LABS: ESTIMATED AVERAGE GLUCOSE 117 mg/dL (70-100); HEMOGLOBIN A1c% 5.7 % (4.27-6.07)
[2022-10-04 12:23] LABS: THYROID STIMULATING HORMONE 1.93 uIU/mL (0.34-5.60)
[2022-10-04 19:37] LABS: CREATININE,URINE 34.3 mg/dL
== END 2022-10-04 08:42 | disposition home or self-care (01) ==
LOC: LAB.N 08:41
PROVIDERS: ATTEND Internal Medicine
DX: E78.5 Hyperlipidemia, unspecified (principal); E87.1 Hypo-osmolality and hyponatremia; R73.01 Impaired fasting glucose; K21.9 Gastro-esophageal reflux disease without esophagitis
CPT/HCPCS: 36415; 80053; 80061; 82570; 83036; 83721; 83930; 83935; 84300; 84443; 85025

== ENCOUNTER 2022-11-12 08:30 | Outpatient (CLI) | payer MEDICARE, OTHER | END 2022-11-12 23:59 | disposition critical access hospital (66) | LOC: EMS 08:30 | DX: I48.91 Unspecified atrial fibrillation (principal) | CPT/HCPCS: A0425; A0427 ==

== ENCOUNTER 2022-11-12 08:48 | Emergency (ER) | payer MEDICARE, OTHER ==
[2022-11-12] MEDS ORDERED: SODIUM CHLORIDE 0.9% 1,000 ML IV STA (09:01)
[2022-11-12] MEDS ORDERED: PROPOFOL 200 MG/20 ML VIAL IVP STA ×2 (09:01→09:16)
--- NOTE | 2022-11-12 09:18 | ED Physician Documentation ---
History of Present Illness - Stated complaint Stated Complaint: AFIB - Chief complaint Chief Complaint: Cardiac - History obtained from History obtained from: Patient, EMS - History of Present Illness Timing: Today Pain level max: 0 Pain level now: 0 - Additonal information Additional information: Patient is a 77-year-old male with a longstanding history of atrial fibrillation. He states that he has had several cardioversions and ablations. He is on Eliquis and flecainide. He states that today he felt like his heart was racing and he felt like he was back in atrial fibrillation. Normally feels mildly lightheaded and dizzy with this. Patient is requesting cardioversion. No chest pain. No shortness of breath. No nausea or vomiting. Last meal was last night. Patient was given diltiazem by EMS. Review of Systems Constitutional: denies: Fever, Chills Cardiac: reports: Palpitations. denies: Chest pain / pressure Respiratory: denies: Dyspnea, Cough, Wheezing GI: denies: Vomiting PD PAST MEDICAL HISTORY - Past Medical History Cardiovascular: Hypertension, High cholesterol, Atrial fibrillation Respiratory: None Neuro: None Endocrine/Autoimmune: None GI: None, GERD, Colon polyps : None HEENT: None Psych: Anxiety, Panic attacks Musculoskeletal: None Derm: None - Past Surgical History Past Surgical History: No General: Colonoscopy Cardiovascular: Cardiac catheterization, Other HEENT: Cataracts, Other - Present Medications Home Medications: Ambulatory Orders Medication Instructions Recorded Confirmed Alprazolam [Xanax] 1 mg PO DAILY PRN 11/30/14 02/03/22 Atorvastatin Calcium [Lipitor] 40 mg PO DAILY 11/30/14 02/03/22 Apixaban [Eliquis] 5 mg PO DAILY 11/10/17 02/03/22 Flecainide [Tambocar] 100 mg PO BID 02/22/19 02/03/22 Metoprolol Succinate [Toprol Xl] 25 mg PO BID 02/22/19 02/03/22 lisinopriL [Zestril] 5 mg PO DAILY 06/10/21 02/03/22 - Allergies Allergies/Adverse Reactions: Allergies Allergy/AdvReac Type Severity Reaction Status Date / Time Penicillins Allergy Severe Anaphylaxis Verified 02/03/22 07:16 - Social History Does the pt smoke?: No Smoking Status: Never smoker Does the pt drink ETOH?: No Does the pt have substance abuse?: No - Immunizations Immunizations are current?: Yes - POLST Patient has POLST: No PD ED PE NORMAL - Vitals Vital signs reviewed: Yes - General General: Alert and oriented X 3, No acute distress, Well developed/nourished - HEENT HEENT: PERRL - Neck Neck: Supple, no meningeal sign, No JVD, No bruit - Cardiac Cardiac: Other (Irregularly irregular) - Respiratory Respiratory: No respiratory distress, Clear bilaterally - Abdomen Abdomen: Soft, Non tender, Non distended - Derm Derm: Warm and dry - Extremities Extremities: No edema, No calf tenderness / cord - Neuro Neuro: Alert and oriented X 3 - Psych Psych: Normal mood, Normal affect Results - Vitals Vitals: Vital Signs - 24 hr 11/12/22 11/12/22 11/12/22 08:55 09:19 09:20 Temperature 36.6 C Heart Rate 79 80 65 Respiratory 16 18 18 Rate Blood Pressure 159/78 H 159/78 H O2 Saturation 97 98 If not protocol : Oxygen Flow, liters/minute 11/12/22 11/12/22 11/12/22 09:24 09:29 09:30 Temperature Heart Rate 59 L 59 L 51 L Respiratory 16 18 18 Rate Blood Pressure 117/64 117/64 115/64 O2 Saturation 97 97 98 If not protocol 2 2 : Oxygen Flow, liters/minute Oxygen O2 Source Nasal cannula - EKG (time done) 0849 EKG releavant findings:: EKG personally interpreted by author of this note. Relevant findings are: Rate: Rate (enter#) (79) Rhythm: Atrial fibrillation Intervals: Wide QRS QRS: Normal Ischemia: T wave inversion (V3-6. II, III, aVF) 0912 EKG releavant findings:: EKG personally interpreted by author of this note. 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), PE performed, ASA 2 - mild disease Sedation Medications: propofol Mallampati classification: II Patient status during sedation: Responds to tactile, Vitals remained stable, Maintained airway, Recovered uneventfully Sedation recovery: Recovered uneventfully Time in sedation (Minutes): 15 - Cardioversion - Major 1 Time of attempt: 09:10 Indication: Other (afib) Risks, benefits, alternatives explained to: Pt Prep: IV, O2, lunchroom monitor, Pulse ox, Airway equip CS via: Pads Sync: Biphasic, 100j Post cardioversion rhythm: A-fib Performed by: ED MD 2 Time of attempt: 09:11 Indication: Tachyarrhythmia, Clinically unstable, Altered LOC, Chest pain, Hypotension Risks, benefits, alternatives explained to: Pt Prep: IV, O2, lunchroom monitor, Pulse ox CS via: Pads Sync: Biphasic (120) Post cardioversion rhythm: NSR Performed by: ED MD PD Medical Decision Making - ED course Complexity details: reviewed results, re-evaluated patient, considered differential, d/w patient ED course: 77-year-old male with atrial fibrillation, rate controlled with diltiazem. Patient requests electrical cardioversion as he does not like the way he feels in atrial fibrillation. Consent was obtained. Patient was sedated, initially cardioversion was attempted with 100 J, he stayed in A-fib, therefore a second attempt was made at 120 J. This converted him to sinus rhythm. Patient recovered uneventfully. Patient still has no chest pain, shortness of breath or indication for further testing at this time. Patient counseled regarding signs and symptoms for which I believe and urgent re-evaluation would be necessary. Patient with good understanding of and agreement to plan and is comfortable going home at this time This document was made in part using voice recognition software. While efforts are made to proofread this document, sound alike and grammatical errors may occur. Departure - Departure Disposition: 01 Home, Self Care Clinical Impression: Atrial fibrillation with RVR Condition: Good Instructions: ED Afib Follow-Up: Mac Rosenbaum MD [Primary Care Provider] - Comments: You were cardioverted out of atrial fibrillation and back into sinus rhythm. Please follow-up with your doctor for further care. Please continue your current medications at home. Discharge Date/Time: 11/12/22 10:03
[2022-11-12 09:50] VITALS: BP 115/64
== END 2022-11-12 10:03 | disposition home or self-care (01) ==
LOC: EDUNIT# → ED 08:48
DX: I48.91 Unspecified atrial fibrillation (principal); Z79.01 Long term (current) use of anticoagulants
CPT/HCPCS: 92960; 93005; 94770; 99152; 99284

== ENCOUNTER 2022-12-13 08:23 | Outpatient (CLI) | payer MEDICARE, OTHER ==
[2022-12-13 12:17] LABS: ALBUMIN 3.9 g/dL (3.2-5.5); ALBUMIN/GLOBULIN RATIO 1.3 (1.0-2.2); BILIRUBIN,TOTAL 0.6 mg/dL (0.2-1.0); CALCIUM 9.3 mg/dL (8.5-10.3); CREATININE 1.1 mg/dL (0.6-1.2); POTASSIUM 4.8 mmol/L (3.5-5.0); TOTAL PROTEIN 6.9 g/dL (6.7-8.2)
== END 2022-12-13 08:24 | disposition home or self-care (01) ==
LOC: LAB.N 08:23
DX: I48.0 Paroxysmal atrial fibrillation (principal)
CPT/HCPCS: 36415; 80053

== ENCOUNTER 2023-03-09 07:46 | Outpatient (CLI) | payer MEDICARE, OTHER | END 2023-03-09 07:47 | disposition critical access hospital (66) | LOC: EMS 07:46 | DX: I48.91 Unspecified atrial fibrillation (principal) | CPT/HCPCS: A0425; A0427 ==

== ENCOUNTER 2023-03-09 08:07 | Emergency (ER) | payer MEDICARE, OTHER ==
[2023-03-09] MEDS ORDERED: METOPROLOL 5 MG/5 ML VIAL IVP STA (08:40)
[2023-03-09 08:43] LABS: CALCIUM 9.2 mg/dL (8.5-10.3); MAGNESIUM 1.7 mg/dL (1.7-2.3); POTASSIUM 4.2 mmol/L (3.5-4.5)
[2023-03-09] MEDS ORDERED: SODIUM CHLORIDE 0.9% 500 ML IV STA (09:02)
[2023-03-09] MEDS ORDERED: PROPOFOL 200 MG/20 ML VIAL IVP STA (09:40)
--- NOTE | 2023-03-09 10:16 | ED Physician Documentation ---
History of Present Illness - Stated complaint Stated Complaint: AFIB - Chief complaint Chief Complaint: Cardiac - History obtained from History obtained from: Patient - Additonal information Additional information: Patient is a 77-year-old male with a history of atrial fibrillation presenting for evaluation of feeling that he has gone back into A-fib. He has had a prior ablation 6 years ago. He has had a few episodes of A-fib in the past at times requiring cardioversion. Most recently was in November of this year. He has been compliant with his medications including Eliquis and flecainide which she took this morning. He takes metoprolol at night. He denies any recent illness. He denies chest pain or shortness of air but reports having a funny sensation in his abdomen, like a pit in his stomach, that makes him aware that he is in A- fib. He is otherwise active and walked 3 miles yesterday. Review of Systems Constitutional: denies: Fever Cardiac: denies: Chest pain / pressure Respiratory: denies: Dyspnea GI: denies: Abdominal Pain, Vomiting PD PAST MEDICAL HISTORY - Past Medical History Past Medical History: Yes Cardiovascular: Hypertension, High cholesterol, Atrial fibrillation Respiratory: None Neuro: None Endocrine/Autoimmune: None GI: None, GERD, Colon polyps : None HEENT: None Psych: Anxiety, Panic attacks Musculoskeletal: None Derm: None - Past Surgical History Past Surgical History: No General: Colonoscopy Cardiovascular: Cardiac catheterization, Other HEENT: Cataracts, Other - Present Medications Home Medications: Ambulatory Orders Medication Instructions Recorded Confirmed Alprazolam [Xanax] 1 mg PO DAILY PRN 11/30/14 03/09/23 Atorvastatin Calcium [Lipitor] 40 mg PO DAILY 11/30/14 03/09/23 Apixaban [Eliquis] 5 mg PO DAILY 11/10/17 03/09/23 Flecainide [Tambocar] 100 mg PO BID 02/22/19 03/09/23 Metoprolol Succinate [Toprol Xl] 25 mg PO BID 02/22/19 03/09/23 lisinopriL [Zestril] 5 mg PO DAILY 06/10/21 03/09/23 Rosuvastatin Calcium [Crestor] 40 mg PO DAILY 03/09/23 03/09/23 - Allergies Allergies/Adverse Reactions: Allergies Allergy/AdvReac Type Severity Reaction Status Date / Time Penicillins Allergy Severe Anaphylaxis Verified 03/09/23 08:15 - Social History Does the pt smoke?: No Smoking Status: Never smoker Does the pt drink ETOH?: No Does the pt have substance abuse?: No - Immunizations Immunizations are current?: Yes - POLST Patient has POLST: No PD ED PE NORMAL - General General: Alert and oriented X 3, No acute distress, Well developed/nourished - HEENT HEENT: Atraumatic - Neck Neck: Supple, no meningeal sign - Cardiac Cardiac: No murmur, Strong equal pulses, Other (Tachycardic, irregularly irregular) - Respiratory Respiratory: No respiratory distress, Clear bilaterally - Abdomen Abdomen: Soft, Non tender - Derm Derm: Warm and dry - Extremities Extremities: No edema, No calf tenderness / cord - Neuro Neuro: Alert and oriented X 3, No motor deficit, Normal speech Results - Vitals Vitals: Vital Signs - 24 hr 03/09/23 03/09/23 03/09/23 08:10 09:01 09:50 Temperature 36.0 C L 36.6 C Heart Rate 115 H 84 124 H Respiratory 15 13 15 Rate Blood Pressure 160/124 H 178/92 H 136/70 H O2 Saturation 98 100 100 If not protocol : Oxygen Flow, liters/minute 03/09/23 03/09/23 03/09/23 09:53 09:58 10:00 Temperature Heart Rate 64 60 100 Respiratory 16 15 16 Rate Blood Pressure 144/104 H 121/67 O2 Saturation 100 100 If not protocol 4 : Oxygen Flow, liters/minute 03/09/23 03/09/23 03/09/23 10:15 10:30 10:45 Temperature Heart Rate 58 L 52 L 52 L Respiratory 15 13 15 Rate Blood Pressure 122/65 112/68 123/64 O2 Saturation 96 99 99 If not protocol : Oxygen Flow, liters/minute 03/09/23 10:59 Temperature Heart Rate 54 L Respiratory 16 Rate Blood Pressure 114/57 L O2 Saturation 98 If not protocol : Oxygen Flow, liters/minute Oxygen O2 Source Room air - EKG (time done) 0809 EKG releavant findings:: EKG personally interpreted by author of this note. Relevant findings are: Rate 117, atrial fibrillation, no STEMI 0952 EKG releavant findings:: EKG personally interpreted by author of this note. Relevant findings are: Rate 60, normal sinus rhythm, T wave inversions in inferior and anterior lateral leads, seen on prior EKG from November 2022 - Labs Labs: Laboratory Tests 03/09/23 08:24 Sodium 138 Potassium 4.2 Chloride 106 Carbon Dioxide 23 Anion Gap 9.0 BUN 19 Creatinine 1.0 Estimated GFR (MDRD) 73 L Glucose 115 H Calcium 9.2 Magnesium 1.7 Procedures - Procedural sedation Sedation prep: Informed consent, Time out completed, Last meal (12 hrs), PE performed, ASA 2 - mild disease Sedation Medications: propofol (60mg) Mallampati classification: II Patient status during sedation: Drowsy, Vitals remained stable, Maintained airway, Recovered uneventfully Sedation recovery: Recovered uneventfully Time in sedation (Minutes): 10 - Cardioversion - Major 1 Time of attempt: 09:50 Indication: Tachyarrhythmia Risks, benefits, alternatives explained to: 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 He has a history of this and has had a prior ablation. Has had paroxysmal episodes in the past at times requiring cardioversion. [place] onset of symptoms this morning. No chest pain or shortness of air. Hemodynamically stable. Attempted dose of IV metoprolol which did show some improvement in rate but patient remained in A-fib and was having symptoms from this. Patient got up to use the restroom and heart rate then elevated back into the 120s 130s. I discussed cardioversion which patient is comfortable with.Patient was sedated with propofol. 1 shock at 120 J converted patient back into normal sinus rhythm and he is feeling much better. Patient monitored for short time after procedural sedation and is back to baseline. He understands importance of continuing with his medications as well as concerning symptoms to return for. - Critical Care Time(min): 31 Time Includes: Direct patient care, Review records, Reassess patient, Document care Data interpretation: Prior EKG Procedures excluded from critical care time: EKG, See progress note Departure - Departure Disposition: 01 Home, Self Care Clinical Impression: Atrial fibrillation Condition: Stable Instructions: ED Afib, ED Sedation Procedural Discon Follow-Up: Dante Gomez MD [Physician No Access] - Comments: Juan, you were evaluated today after being in atrial fibrillation. We attempted to get your heart back into a regular rhythm with IV metoprolol but this was not successful. Therefore we did give you medicine to sedate you and converted you using electricity. You are now back into a regular rhythm. Please continue with your medications as prescribed by your mesmerist. I would also recommend follow-up with your mesmerist. Please return to the emergency department with any recurrent or worsening symptoms. It was my pleasure to care for you in the emergency department today. Forms: PCP List Discharge Date/Time: 03/09/23 11:03
[2023-03-09 11:08] VITALS: BP 114/57; O2SAT 98
== END 2023-03-09 11:03 | disposition home or self-care (01) ==
LOC: EDUNIT# → ED 08:07
DX: I48.91 Unspecified atrial fibrillation (principal); Z79.01 Long term (current) use of anticoagulants; I10 Essential (primary) hypertension
CPT/HCPCS: 36415; 80048; 83735; 92960; 93005; 99152; 99291

== ENCOUNTER 2023-04-07 07:50 | Outpatient (CLI) | payer MEDICARE, OTHER ==
[2023-04-07 13:11] LABS: ALBUMIN 4.1 g/dL (3.2-5.5); ALBUMIN/GLOBULIN RATIO 1.4 (1.0-2.2); BILIRUBIN,TOTAL 0.4 mg/dL (0.2-1.0); CALCIUM 9.6 mg/dL (8.5-10.3); CREATININE 1.1 mg/dL (0.6-1.3); POTASSIUM 4.6 mmol/L (3.5-4.5)
[2023-04-07 17:18] LABS: ESTIMATED AVERAGE GLUCOSE 114 mg/dL (70-100); HEMOGLOBIN A1c% 5.6 % (4.27-6.07)
== END 2023-04-07 07:51 | disposition home or self-care (01) ==
LOC: LAB.N 07:50
PROVIDERS: ATTEND Internal Medicine
DX: I10 Essential (primary) hypertension (principal); I48.0 Paroxysmal atrial fibrillation; R73.01 Impaired fasting glucose
CPT/HCPCS: 36415; 80053; 83036

== ENCOUNTER 2023-07-12 08:03 | Outpatient (CLI) | payer MEDICARE, OTHER ==
[2023-07-12 12:16] LABS: BASOPHILS # (AUTO) 0.1 10^3/uL (0.0-0.1); BASOPHILS % (AUTO) 1.1 %; EOSINOPHILS # (AUTO) 0.2 10^3/uL (0.0-0.7); EOSINOPHILS % (AUTO) 3.3 %; HCT - HEMATOCRIT 43.2 % (42.0-52.0); HGB - HEMOGLOBIN 13.9 g/dL (14.0-18.0); LYMPHOCYTES # (AUTO) 2.3 10^3/uL (1.5-3.5); LYMPHOCYTES % (AUTO) 35.8 %; MEAN CORPUSCULAR HEMOGLOBIN 30.1 pg (27.0-31.0); MEAN CORPUSCULAR HGB CONC 32.2 g/dL (32.0-36.0); MEAN CORPUSCULAR VOLUME 93.5 fL (80.0-94.0); MONOCYTES # (AUTO) 0.8 10^3/uL (0.0-1.0); MONOCYTES % (AUTO) 12.7 %; NEUTROPHILS % (AUTO) 46.8 %; PLT - PLATELET COUNT 264 10^3/uL (130-450); RED BLOOD COUNT 4.62 10^6/uL (4.70-6.10); RED CELL DISTRIBUTION WIDTH 13.5 % (12.0-15.0); WHITE BLOOD COUNT 6.4 x10^3/uL (4.8-10.8)
[2023-07-12 12:35] LABS: ALBUMIN 4.1 g/dL (3.2-5.5); ALBUMIN/GLOBULIN RATIO 1.5 (1.0-2.2); ALKALINE PHOSPHATASE 51 IU/L (42-121); ALT ALANINE AMINOTRANSFERASE 20 IU/L (10-60); AST ASPARTATE AMINOTRANSFERASE 22 IU/L (10-42); BILIRUBIN,TOTAL 0.5 mg/dL (0.2-1.0); BUN - BLOOD UREA NITROGEN 21 mg/dL (6-20); CALCIUM 9.5 mg/dL (8.5-10.3); CARBON DIOXIDE - CO2 27 mmol/L (21-32); CHLORIDE 105 mmol/L (101-111); CHOL/HDL RATIO 2.8 (<5.0); CHOLESTEROL 178 mg/dL; CREATININE 1.2 mg/dL (0.6-1.3); GFR - MDRD 59 (>89); GLUCOSE 114 mg/dL (74-104); HDL CHOLESTEROL 63 mg/dL; LDL CHOLESTEROL,CALCULATED 90 mg/dL; LDL/HDL RATIO 1.4 (<3.6); POTASSIUM 4.1 mmol/L (3.5-4.5); SODIUM 138 mmol/L (135-145); TOTAL PROTEIN 6.9 g/dL (6.4-8.9); TRIGLYCERIDES 125 mg/dL (48-352); VLDL CHOLESTEROL 25 mg/dL
[2023-07-12 12:39] LABS: ESTIMATED AVERAGE GLUCOSE 114 mg/dL (70-100); HEMOGLOBIN A1c% 5.6 % (4.27-6.07)
[2023-07-12 12:40] LABS: THYROID STIMULATING HORMONE 1.47 uIU/mL (0.34-5.60)
== END 2023-07-12 08:04 | disposition home or self-care (01) ==
LOC: LAB.N 08:03
PROVIDERS: ATTEND Internal Medicine
DX: E78.5 Hyperlipidemia, unspecified (principal); R73.01 Impaired fasting glucose; Z12.5 Encounter for screening for malignant neoplasm of prostate; I48.0 Paroxysmal atrial fibrillation; I10 Essential (primary) hypertension
CPT/HCPCS: 36415; 80053; 80061; 83036; 84443; 85025; G0103; 83721; 84153

== ENCOUNTER 2023-11-22 18:44 | Outpatient (CLI) | payer MEDICARE, OTHER | END 2023-11-22 23:59 | disposition EMS.NT | LOC: EMS 18:44 | DX: I48.91 Unspecified atrial fibrillation (principal) ==

== ENCOUNTER 2023-11-22 19:25 | Emergency (ER) | payer MEDICARE, OTHER ==
[2023-11-22 20:04] LABS: BASOPHILS # (AUTO) 0.1 10^3/uL (0.0-0.1); BASOPHILS % (AUTO) 0.6 %; EOSINOPHILS # (AUTO) 0.1 10^3/uL (0.0-0.7); EOSINOPHILS % (AUTO) 1.5 %; HCT - HEMATOCRIT 40.4 % (42.0-52.0); HGB - HEMOGLOBIN 13.3 g/dL (14.0-18.0); LYMPHOCYTES # (AUTO) 2.3 10^3/uL (1.5-3.5); LYMPHOCYTES % (AUTO) 23.5 %; MEAN CORPUSCULAR HGB CONC 32.9 g/dL (32.0-36.0); MEAN PLATELET VOLUME 9.9 fL (7.4-11.4); MONOCYTES # (AUTO) 1.1 10^3/uL (0.0-1.0); MONOCYTES % (AUTO) 11.1 %; NEUTROPHILS # (AUTO) 6.1 10^3/uL (1.5-6.6); NEUTROPHILS % (AUTO) 63.1 %; PLT - PLATELET COUNT 261 10^3/uL (130-450); RED BLOOD COUNT 4.44 10^6/uL (4.70-6.10); RED CELL DISTRIBUTION WIDTH 13.4 % (12.0-15.0); WHITE BLOOD COUNT 9.6 x10^3/uL (4.8-10.8)
--- NOTE | 2023-11-22 20:20 | ED Physician Documentation ---
History of Present Illness - Stated complaint Stated Complaint: HIGH HR - Chief complaint Chief Complaint: Cardiac - History obtained from History obtained from: Patient - Additonal information Additional information: 78yM with pmh intermittent afib on eliquis, fleicanide, metoprolol p/w sensation tonight around 6pm after dinner of bloating in the stomach, which made him think his "afib was activing up again". denies cp, soa, fever, nausea, leg swelling or other complaints. Review of Systems Constitutional: denies: Fever, Chills, Myalgias, Fatigue Cardiac: denies: Chest pain / pressure Respiratory: denies: Dyspnea GI: denies: Nausea, Vomiting, Diarrhea PD PAST MEDICAL HISTORY - Past Medical History Cardiovascular: Hypertension, High cholesterol, Atrial fibrillation Respiratory: None Neuro: None Endocrine/Autoimmune: None GI: None, GERD, Colon polyps : None HEENT: None Psych: Anxiety, Panic attacks Musculoskeletal: None Derm: None - Past Surgical History Past Surgical History: No General: Colonoscopy Cardiovascular: Cardiac catheterization, Other HEENT: Cataracts, Other - Present Medications Home Medications: Ambulatory Orders Medication Instructions Recorded Confirmed Alprazolam [Xanax] 1 mg PO DAILY PRN 11/30/14 03/09/23 Atorvastatin Calcium [Lipitor] 40 mg PO DAILY 11/30/14 03/09/23 Apixaban [Eliquis] 5 mg PO DAILY 11/10/17 03/09/23 Flecainide [Tambocar] 100 mg PO BID 02/22/19 03/09/23 Metoprolol Succinate [Toprol Xl] 25 mg PO BID 02/22/19 03/09/23 lisinopriL [Zestril] 5 mg PO DAILY 06/10/21 03/09/23 Rosuvastatin Calcium [Crestor] 40 mg PO DAILY 03/09/23 03/09/23 - Allergies Allergies/Adverse Reactions: Allergies Allergy/AdvReac Type Severity Reaction Status Date / Time Penicillins Allergy Severe Anaphylaxis Verified 11/22/23 19:46 - Social History Does the pt smoke?: No Smoking Status: Never smoker Does the pt drink ETOH?: No Does the pt have substance abuse?: No - Immunizations Immunizations are current?: Yes - POLST Patient has POLST: No PD ED PE NORMAL - Vitals Vital signs reviewed: Yes - General General: Alert and oriented X 3, No acute distress, Well developed/nourished - HEENT HEENT: Atraumatic, PERRL, EOMI - Neck Neck: Supple, no meningeal sign - Cardiac Cardiac: RRR - Respiratory Respiratory: No respiratory distress, Clear bilaterally Results - Vitals Vitals: Vital Signs - 24 hr 11/22/23 11/22/23 11/22/23 19:27 19:55 20:30 Temperature 36.7 C Heart Rate 84 76 63 Respiratory 17 18 16 Rate Blood Pressure 187/77 H 192/74 H 167/77 H O2 Saturation 98 100 94 Oxygen O2 Source Room air - EKG (time done) 1936 EKG releavant findings:: EKG personally interpreted by author of this note. Relevant findings are: Rate: Rate (enter#) (81) Rhythm: NSR Intervals: Prolonged CO (280) - Labs Labs: Laboratory Tests 11/22/23 11/22/23 11/22/23 20:00 20:00 22:58 WBC 9.6 RBC 4.44 L Hgb 13.3 L Hct 40.4 L MCV 91.0 MCH 30.0 MCHC 32.9 RDW 13.4 Plt Count 261 MPV 9.9 Neut # (Auto) 6.1 Lymph # (Auto) 2.3 [place] # (Auto) 1.1 H Eos # (Auto) 0.1 Baso # (Auto) 0.1 Absolute Nucleated RBC 0.00 Nucleated RBC % 0.0 Sodium 134 L Potassium 4.2 Chloride 103 Carbon Dioxide 24 Anion Gap 7.0 BUN 30 H Creatinine 1.3 Estimated GFR (MDRD) 54 L Glucose 132 H Calcium 9.6 Total Bilirubin 0.3 AST 21 ALT 20 Alkaline Phosphatase 56 Troponin I High Sens 4.0 4.3 Total Protein 6.6 Albumin 4.0 Globulin 2.6 Albumin/Globulin Ratio 1.5 Lipase 34 PD Medical Decision Making - ED course ED course: 78yM presents for medical evaluation after experiencing bloating sensation in s tomach he usually attributes to his afib. workup here in the ED is benign and patient has been in NSR entire time. return precautions given. 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 Departure - Departure Disposition: 01 Home, Self Care Clinical Impression: Palpitations Condition: Stable Instructions: ED Chest Pain Atypical Unkn Cause Comments: You were seen in the emergency department for medical evaluation. Your workup uncovered no emergent issues. Please follow-up with your primary care provider and return to the emergency department if you have any new or worsening symptoms or other concerns. Forms: PCP List
[2023-11-22 20:24] LABS: ALBUMIN/GLOBULIN RATIO 1.5 (1.0-2.2); BILIRUBIN,TOTAL 0.3 mg/dL (0.2-1.0); CALCIUM 9.6 mg/dL (8.5-10.3); CREATININE 1.3 mg/dL (0.6-1.3); POTASSIUM 4.2 mmol/L (3.5-4.5); TOTAL PROTEIN 6.6 g/dL (6.4-8.9)
--- NOTE | 2023-11-22 20:43 | XRAY Report ---
PROCEDURE: Chest 1V INDICATIONS: Chest Pain TECHNIQUE: One view of the chest was acquired. COMPARISON: 03/01/2020 FINDINGS: Surgical changes and devices: None. Lungs and pleura: No pleural effusions or pneumothorax. Lungs are clear. Mediastinum: Mediastinal contours appear normal. Heart size is normal. Bones and chest wall: No suspicious bony lesions. Overlying soft tissues appear unremarkable. IMPRESSION: No acute cardiopulmonary process. Reviewed by: Martin Katz MD on 11/22/2023 8:41 PM PDT Approved by: Martin Katz MD on 11/22/2023 8:41 PM PDT Station ID: [id number]
[2023-11-22 23:54] VITALS: BP 161/69; O2SAT 99
== END 2023-11-22 23:52 | disposition home or self-care (01) ==
LOC: ED 19:25
DX: R00.2 Palpitations (principal); E78.00 Pure hypercholesterolemia, unspecified; I10 Essential (primary) hypertension; I48.91 Unspecified atrial fibrillation; Z79.899 Other long term (current) drug therapy; Z79.01 Long term (current) use of anticoagulants
CPT/HCPCS: 36415; 80053; 83690; 84484; 85025; 93005; 99284